=== PATIENT | female | born 1930 | race African-American/Black ===

== ENCOUNTER 2017-07-29 06:52 | Inpatient (IN) | payer MEDICARE, OTHER ==
[~2017-07-29] VITALS: Ht 165.1 cm; Wt 44.9 kg
[2017-07-29] MEDS ORDERED: Albuterol ud Inhalation HHN ONE ×2 (07:00→08:00)
[2017-07-29] MEDS ORDERED: Ipratropium 0.02% Inh Soln 2.5ml UD HHN ONE (07:00)
[2017-07-29] MEDS ORDERED: Solu-MEDROL 125mg Inj IVP ONE (07:00)
--- NOTE | 2017-07-29 07:01 | Emergency Room Report ---
History of Present Illness General Chief Complaint: Upper Respiratory Illness Source: Patient, EMS Present Illness HPI The patient presents via EMS for cough. That started at 1 AM. She hears himself wheezing. She has a history of asthma. She denies any fever or colored phlegm. She has any chest pain but feels some pressure there. She does have an inhaler with out a nebulizer. This is not her worst attack. She denies any fever nausea, vomiting, diarrhea, dysuria. Minimal exertion and no MEDLEY, dizziness, chest pain. She has weakness of her left hand that's chronic. 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 She also suffers from osteoarthritis. Allergies: Coded Allergies: CODEINE (Verified Allergy, Unknown, 07/29/17) EGG (Verified Allergy, Unknown, 07/29/17) LISINOPRIL (Verified Allergy, Unknown, 07/29/17) MILK (Verified Allergy, Unknown, 07/29/17) PENICILLINS (Verified Allergy, Unknown, 07/29/17) Patient History Past Medical History: see triage record Social History: Denies: smoking Social History Narrative assisted living - born [place] Now: No Reviewed Nursing Documentation: PMH: Agreed; PSxH: Agreed Review of Systems All Other Systems: negative except mentioned in HPI Physical Exam Vital Signs Date Time Temp Pulse Resp B/P (MAP) Pulse Ox O2 Delivery O2 Flow Rate FiO2 07/29/17 06:53 98.8 56 18 146/69 97 Room Air 98.8 Sp02 EP Interpretation: reviewed, normal General Appearance: well appearing, no apparent distress, GCS 15 Head: normocephalic, atraumatic Eyes: bilateral eye normal inspection, bilateral eye PERRL ENT: moist mucus membranes Neck: supple Respiratory: wheezing, expiration, inspiration Cardiovascular #1: normal peripheral pulses, bradycardia Cardiovascular #2: 2+ radial (R) Gastrointestinal: normal inspection, normal bowel sounds, non tender, no mass, non-distended, overweight Genitourinary: no CVA tenderness Musculoskeletal: back normal, normal range of motion, non-tender, no calf tenderness, other - Contracture left hand Neurologic: alert, oriented x3, DTRs symmetric, sensory intact, speech normal, motor weakness - Left-hand Psychiatric: mood/affect normal Skin: normal inspection, warm/dry Medical Decision Making Diagnostic Impression: Primary Impression: Dyspnea Qualified Codes: R06.00 - Dyspnea, unspecified Additional Impressions: Bradycardia UTI (urinary tract infection) Qualified Codes: N30.00 - Acute cystitis without hematuria Bronchospasm ER Course Patient presents with cough and wheezing. Differential includes pneumonia, asthma exacerbation, bronchospasm, bronchitis amongst others. She'll be evaluated with EKG, chest x-ray and labs including lactate. She is afebrile and therefore blood cultures are not ordered. She'll be treated with Solu- Medrol and breathing treatments. The patient is found to be bradycardic. She's on 2 beta blockers and calcium channel micky (according to med list). She takes both labetalol and metoprolol as well as norvasc. She'll be treated with glucagon. Also based on the EKG we need to make sure her potassium is not elevated. The albuterol will help if her potassium is elevated. EKG with a rate of 40 with a left bundle branch block no hyperacute changes. Patient was given glucagon 1 mg with minimal improvement. This was then repeated with 2 mg dose. She is tolerating the slow heart rate without distress. Labs are significant for no hyperkalemia. This makes the possibility of excess beta micky more likely. The fact she is also on a calcium channel micky, will also try calcium gluconate. If patient were not tolerating HR, would consider more aggressive treatment ( atropine). Holding due to clinical status. The patient be admitted to telemetry. The wheezing is better and the patient has no respiratory distress at this time. Dr. Molina was contacted and will admit the patient. Pacer pads placed. UA returned after patient on floor. Told floor to ask for antibiotics. Laboratory Tests Test 07/29/17 07:20 07/29/17 08:34 White Blood Count 7.0 K/UL (4.8-10.8) Red Blood Count 3.63 M/UL (4.20-5.40) L Hemoglobin 10.7 G/DL (12.0-16.0) L Hematocrit 32.4 % (37.0-47.0) L Mean Corpuscular Volume 89 FL (80-99) Mean Corpuscular Hemoglobin 29.5 PG (27.0-31.0) Mean Corpuscular Hemoglobin Concent 33.1 G/DL (32.0-36.0) Red Cell Distribution Width 13.5 % (11.6-14.8) Platelet Count 208 K/UL (150-450) Mean Platelet Volume 10.8 FL (6.5-10.1) H Neutrophils (%) (Auto) 61.3 % (45.0-75.0) Lymphocytes (%) (Auto) 23.1 % (20.0-45.0) Monocytes (%) (Auto) 8.0 % (1.0-10.0) Eosinophils (%) (Auto) 5.2 % (0.0-3.0) H Basophils (%) (Auto) 2.4 % (0.0-2.0) H Prothrombin Time 9.7 SEC (9.30-11.50) Prothrombin Time INR 1.0 (0.9-1.1) PTT 25 SEC (23-33) Sodium Level 142 MMOL/L (136-145) Potassium Level 4.5 MMOL/L (3.5-5.1) Chloride Level 107 MMOL/L (98-107) Carbon Dioxide Level 26 MMOL/L (21-32) Anion Gap 9 mmol/L (5-15) Blood Urea Nitrogen 21 mg/dL (7-18) H Creatinine 1.2 MG/DL (0.55-1.30) Estimate Glomerular Filtration Rate mL/min (>60) Glucose Level 118 MG/DL (74-106) H Lactic Acid Level 2.50 mmol/L (0.66-2.22) H 2.30 mmol/L (0.66-2.22) H Calcium Level 9.0 MG/DL (8.5-10.1) Magnesium Level 2.0 MG/DL (1.8-2.4) Total Bilirubin 0.3 MG/DL (0.2-1.0) Aspartate Amino Transferase (AST) 19 U/L (15-37) Alanine Aminotransferase (ALT) 19 U/L (12-78) Alkaline Phosphatase 72 U/L (46-116) Total Creatine Kinase 74 U/L (26-308) Troponin I 0.000 ng/mL (0.000-0.056) Pro-B-Type Natriuretic Peptide 1366 pg/mL (0-125) H Total Protein 7.3 G/DL (6.4-8.2) Albumin 3.2 G/DL (3.4-5.0) L Globulin 4.1 g/dL Albumin/Globulin Ratio 0.8 (1.0-2.7) L EKG Diagnostic Results Rate: bradycardiac Rhythm: other ST Segments: no acute changes - LBBB Rhythm Strip Diag. Results EP Interpretation: yes Rhythm: no PVC's, no ectopy, other - bradycardia Chest X-Ray Diagnostic Results Chest X-Ray Diagnostic Results : Chest X-Ray Ordered: Yes # of Views/Limited/Complete: 1 View Indication: Shortness of Breath EP Interpretation: Yes Interpretation: no consolidation, no effusion, no pneumothorax, other Impression: Other Electronically Signed by: Electronically signed by Chao Mendoza MD Last Vital Signs Date Time Temp Pulse Resp B/P (MAP) Pulse Ox O2 Delivery O2 Flow Rate FiO2 07/29/17 21:09 165/89 07/29/17 16:00 59 07/29/17 12:00 2.0 07/29/17 10:31 98.8 16 100 Room Air 98.8 Status: improved Disposition: ADMITTED INPATIENT Condition: Serious Chao Mendoza M.D. July 29, 2017 07:01
[2017-07-29] MEDS ORDERED: LABETALOL HCL100 MG ORAL (07:14)
[2017-07-29] MEDS ORDERED: LOSARTAN POTASS50 MG ORAL (07:14)
[2017-07-29] MEDS ORDERED: LD2JL30 TOPIC (07:14)
[2017-07-29] MEDS ORDERED: METOPROLOL TART50 M1 ORAL (07:14)
[2017-07-29] MEDS ORDERED: ARTIFICIAL TEAR15 ML BOTH EYES (07:14)
[2017-07-29] MEDS ORDERED: ISOSORBIDE MONO20 MG PO ×2 (07:14→07:20)
[2017-07-29] MEDS ORDERED: LOVASTATIN40 MG ORAL (07:14)
[2017-07-29] MEDS ORDERED: COLACE100 MG ORAL (07:14)
[2017-07-29] MEDS ORDERED: METFORMIN HCL1000 M1 ORAL (07:14)
[2017-07-29] MEDS ORDERED: FOLIC ACID1 MG ORAL (07:14)
[2017-07-29] MEDS ORDERED: GABAPENTIN300 MG ORAL (07:14)
[2017-07-29] MEDS ORDERED: BACLOFEN10 MG ORAL ×2 (07:14→07:20)
[2017-07-29] MEDS ORDERED: FLEET ENEMA133 ML RECTAL (07:14)
[2017-07-29] MEDS ORDERED: NORVASC5 MG ORAL (07:18)
[2017-07-29] MEDS ORDERED: NOVOLOG100 UNIT/3 SUBQ (07:18)
[2017-07-29] MEDS ORDERED: ROBAXIN500 MG PO (07:18)
[2017-07-29] MEDS ORDERED: SENNA LAXATIVE8.6 MG PO (07:18)
[2017-07-29] MEDS ORDERED: PANTOPRAZOLE SO40 MG ORAL (07:18)
[2017-07-29] MEDS ORDERED: NITROGLYCERIN2.5 M1 SL (07:18)
[2017-07-29] MEDS ORDERED: MILK OF MA400 MG/51 ORAL (07:18)
[2017-07-29] MEDS ORDERED: CARAFATE1 G1 ORAL (07:20)
[2017-07-29] MEDS ORDERED: VITAMIN D400 INTLU ORAL (07:20)
[2017-07-29] MEDS ORDERED: ACETAMINOPHEN325 M1 ORAL (07:20)
[2017-07-29 07:33] VITALS: BP 146/69
[2017-07-29] MEDS ORDERED: Glucagon 1mg Inj IV ONE ×2 (07:45→08:15)
[2017-07-29 07:48] LABS: BASOPHILS % (AUTO) 2.4 % (0.0-2.0); EOSINOPHILS % (AUTO) 5.2 % (0.0-3.0); HEMATOCRIT 32.4 % (37.0-47.0); HEMOGLOBIN 10.7 G/DL (12.0-16.0); LYMPHOCYTES % (AUTO) 23.1 % (20.0-45.0); MEAN CORPUSCULAR VOLUME 89 FL (80-99); NEUTROPHILS % (AUTO) 61.3 % (45.0-75.0); PLATELET COUNT 208 K/UL (150-450); RED BLOOD COUNT 3.63 M/UL (4.20-5.40); RED CELL DISTRIBUTION WIDTH 13.5 % (11.6-14.8)
[2017-07-29 07:58] LABS: ANION GAP 9 mmol/L (5-15); BLOOD UREA NITROGEN 21 mg/dL (7-18); CARBON DIOXIDE 26 MMOL/L (21-32); CHLORIDE 107 MMOL/L (98-107); CREATININE 1.2 MG/DL (0.55-1.30); POTASSIUM 4.5 MMOL/L (3.5-5.1); SODIUM 142 MMOL/L (136-145)
[2017-07-29] MEDS ORDERED: Glucagon 1mg Inj ONE (08:07)
[2017-07-29 08:08] LABS: ALANINE AMINOTRANSFERASE 19 U/L (12-78); ALBUMIN 3.2 G/DL (3.4-5.0); ALBUMIN/GLOBULIN RATIO 0.8 (1.0-2.7); ALKALINE PHOSPHATASE 72 U/L (46-116); ASPARTATE AMINO TRANSFERASE 19 U/L (15-37); BILIRUBIN,TOTAL 0.3 MG/DL (0.2-1.0); CREATINE KINASE 74 U/L (26-308)
[2017-07-29] MEDS ORDERED: Ketorolac 30mg Inj IV PRN (09:00)
[2017-07-29] MEDS ORDERED: Nitroglycerin Subl 0.4mg tab SL PRN (09:00)
[2017-07-29] MEDS ORDERED: LORazepam Inj 2mg/ml 1ml IV PRN (09:00)
[2017-07-29] MEDS ORDERED: Albuterol/Ipratropium 3ml neb HHN PRN (09:00)
[2017-07-29 09:30] VITALS: BP 125/41
[2017-07-29] MEDS ORDERED: Calcium Gluconate 1gm/10ml vial IVP ONE (09:45)
[2017-07-29 10:06] VITALS: BP 125/60
[2017-07-29 10:07] LABS: APPEARANCE,URINE CLOUDY; BILIRUBIN, URINE NEGATIVE (NEGATIVE); COLOR,URINE PALE YELLOW; GLUCOSE, URINE (UA) NEGATIVE (NEGATIVE); KETONES,URINE NEGATIVE (NEGATIVE); LEUKOCYTE ESTERASE ,URINE 2+ (NEGATIVE); NITRITE,URINE NEGATIVE (NEGATIVE); PH,URINE 6 (4.5-8.0); PROTEIN,URINE 4+ (NEGATIVE); UROBILINOGEN,URINE NORMAL MG/DL (0.0-1.0)
--- NOTE | 2017-07-29 10:32 | Diagnostic Imaging Report ---
Indication: Dyspnea Technique: XRAY Chest 1v Comparison: None Findings: Heart is enlarged. There is mild interstitial edema. There are patchy bibasilar airspace opacities likely related to atelectasis and vascular crowding. There is trace left pleural fluid. There is no pneumothorax. There is scoliosis and degenerative change of the spine. Degenerative change of the shoulders also noted. No acute osseous abnormality seen. Cervical fixation hardware is partially visualized. IMPRESSION: Cardiomegaly and mild interstitial edema/CHF. Patchy bibasilar opacities likely related to bronchovascular crowding/interstitial edema. Possibility of superimposed pneumonia not entirely excluded. Clinical correlation and follow-up exam recommended.
--- NOTE | 2017-07-29 12:44 | Consultation ---
History of Present Illness General Date patient seen: July 29, 2017 Chief Complaint: Upper Respiratory Illness Reason for Consultation: dypsnea Present Illness HPI 87 year old female with hx of asthma, HTN, shelter resident presented by EMS with CC of cough and wheezing. She felt some pressure over chest as well. She does have an inhaler with out a nebulizer. Her CXR in ER showed mild congestion. She was also bradycardic and is admitted to telemetry for further w/ u. Her two daughters are at bed site who are stating that she belongs to [facility] and want to transfer her there. Allergies: Coded Allergies: CODEINE (Verified Allergy, Unknown, 07/29/17) EGG (Verified Allergy, Unknown, 07/29/17) LISINOPRIL (Verified Allergy, Unknown, 07/29/17) MILK (Verified Allergy, Unknown, 07/29/17) PENICILLINS (Verified Allergy, Unknown, 07/29/17) Medication History Scheduled Amlodipine Besylate (Norvasc), 5 MG ORAL BID, (Reported) Baclofen* (Baclofen*), 5 MG ORAL THREE TIMES A DAY, (Reported) Baclofen* (Baclofen*), 5 MG ORAL THREE TIMES A DAY, (Reported) Dextran 70/Hypromellose (Artificial Tears Eye Drops*), 1 DROP BOTH EYES Q6HR, ( Reported) Docusate Sodium* (Colace*), 100 MG ORAL BID, (Reported) Folic Acid* (Folic Acid*), 1 MG ORAL DAILY, (Reported) Gabapentin* (Gabapentin*), 300 MG ORAL THREE TIMES A DAY, (Reported) Insulin Aspart* (Novolog*), 0 SUBQ BID, (Reported) Isosorbide Mononitrate (Isosorbide Mononitrate), 30 MG PO DAILY, (Reported) Labetalol Hcl* (Normodyne*), 100 MG ORAL Q6HR, (Reported) Lidocaine HCL 2% Jelly* (Lidocaine Jelly 2%*), 5 ML TOPIC BID, (Reported) Losartan Potassium* (Losartan Potassium*), 100 MG ORAL BEDTIME, (Reported) Lovastatin (Lovastatin), 40 MG ORAL BEDTIME, (Reported) Magnesium Hydroxide* (Milk Of Magnesia*), 30 ML ORAL BID, (Reported) Metformin Hcl* (Metformin Hcl*), 1,000 MG ORAL BID, (Reported) Methocarbamol* (Robaxin*), 500 MG PO QID, (Reported) Metoprolol Tartrate* (Metoprolol Tartrate*), 50 MG ORAL EVERY 12 HOURS, ( Reported) Na Phos,M-B/Na Phos,Di-Ba* (Fleet Enema*), 133 ML RECTAL DAILY, (Reported) Pantoprazole* (Pantoprazole*), 40 MG ORAL BID, (Reported) Sennosides (Senna Laxative), 8.6 MG PO BEDTIME, (Reported) Sucralfate* (Carafate*), 1 GM ORAL THREE TIMES A DAY, (Reported) Vitamin D (Vitamin D3), 2,000 UNITS ORAL DAILY, (Reported) Scheduled PRN Acetaminophen* (Acetaminophen 325MG Tablet*), 650 MG ORAL Q6H PRN for Pain Scale (3-5), (Reported) Miscellaneous Medications Isosorbide Mononitrate (Isosorbide Mononitrate), 30 MG PO, (Reported) Nitroglycerin (Nitroglycerin), 0.4 MG SL, (Reported) Patient History Healthcare decision maker Resuscitation status Full Code Advanced Directive on File No Past Medical/Surgical History Past Medical/Surgical History: (1) History of asthma (2) Dementia (3) History of hypertension Review of Systems All Other Systems: negative except mentioned in HPI Physical Exam General Appearance: WD/WN, no apparent distress Lines, tubes and drains: peripheral HEENT: normocephalic, atraumatic Neck: non-tender, normal alignment Respiratory/Chest: chest wall non-tender, lungs clear Breasts: no masses Cardiovascular/Chest: normal peripheral pulses Abdomen: normal bowel sounds, non tender Genitourinary/Rectal: normal genital exam Extremities: normal range of motion Skin Exam: normal pigmentation 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 II-XII grossly normal Last 24 Hour Vital Signs Date Time Temp Pulse Resp B/P (MAP) Pulse Ox O2 Delivery O2 Flow Rate FiO2 07/29/17 10:31 98.8 50 16 125/60 100 Room Air 98.8 07/29/17 10:06 98.8 50 16 125/60 100 Room Air 98.8 07/29/17 09:30 98.8 75 16 125/41 100 Room Air 98.8 07/29/17 08:21 41 16 100 Room Air 07/29/17 08:05 43 16 97 Room Air 07/29/17 07:35 51 17 100 Room Air 07/29/17 07:33 98.8 44 20 146/69 96 Room Air 98.8 07/29/17 07:13 40 20 96 Room Air 07/29/17 07:12 40 20 Room Air 07/29/17 07:00 56 18 Room Air 07/29/17 06:53 98.8 56 18 146/69 97 Room Air 98.8 Laboratory Tests Test 07/29/17 07:20 07/29/17 08:34 07/29/17 09:55 White Blood Count 7.0 K/UL (4.8-10.8) Red Blood Count 3.63 M/UL (4.20-5.40) L Hemoglobin 10.7 G/DL (12.0-16.0) L Hematocrit 32.4 % (37.0-47.0) L Mean Corpuscular Volume 89 FL (80-99) Mean Corpuscular Hemoglobin 29.5 PG (27.0-31.0) Mean Corpuscular Hemoglobin Concent 33.1 G/DL (32.0-36.0) Red Cell Distribution Width 13.5 % (11.6-14.8) Platelet Count 208 K/UL (150-450) Mean Platelet Volume 10.8 FL (6.5-10.1) H Neutrophils (%) (Auto) 61.3 % (45.0-75.0) Lymphocytes (%) (Auto) 23.1 % (20.0-45.0) Monocytes (%) (Auto) 8.0 % (1.0-10.0) Eosinophils (%) (Auto) 5.2 % (0.0-3.0) H Basophils (%) (Auto) 2.4 % (0.0-2.0) H Prothrombin Time 9.7 SEC (9.30-11.50) Prothromb Time International Ratio 1.0 (0.9-1.1) Activated Partial Thromboplast Time 25 SEC (23-33) Sodium Level 142 MMOL/L (136-145) Potassium Level 4.5 MMOL/L (3.5-5.1) Chloride Level 107 MMOL/L (98-107) Carbon Dioxide Level 26 MMOL/L (21-32) Anion Gap 9 mmol/L (5-15) Blood Urea Nitrogen 21 mg/dL (7-18) H Creatinine 1.2 MG/DL (0.55-1.30) Estimat Glomerular Filtration Rate mL/min (>60) Glucose Level 118 MG/DL (74-106) H Lactic Acid Level 2.50 mmol/L (0.66-2.22) H 2.30 mmol/L (0.66-2.22) H Calcium Level 9.0 MG/DL (8.5-10.1) Magnesium Level 2.0 MG/DL (1.8-2.4) Total Bilirubin 0.3 MG/DL (0.2-1.0) Aspartate Amino Transf (AST/SGOT) 19 U/L (15-37) Alanine Aminotransferase (ALT/SGPT) 19 U/L (12-78) Alkaline Phosphatase 72 U/L (46-116) Total Creatine Kinase 74 U/L (26-308) Troponin I 0.000 ng/mL (0.000-0.056) Pro-B-Type Natriuretic Peptide 1366 pg/mL (0-125) H Total Protein 7.3 G/DL (6.4-8.2) Albumin 3.2 G/DL (3.4-5.0) L Globulin 4.1 g/dL Albumin/Globulin Ratio 0.8 (1.0-2.7) L Urine Color Pale yellow Urine Appearance Cloudy Urine pH 6 (4.5-8.0) Urine Specific [place] 1.015 (1.005-1.035) Urine Protein 4+ (NEGATIVE) H Urine Glucose (UA) Negative (NEGATIVE) Urine Ketones Negative (NEGATIVE) Urine Occult Blood 3+ (NEGATIVE) H Urine Nitrite Negative (NEGATIVE) Urine Bilirubin Negative (NEGATIVE) Urine Urobilinogen Normal MG/DL (0.0-1.0) Urine Leukocyte Esterase 2+ (NEGATIVE) H Urine RBC 15-20 /HPF (0 - 2) H Urine WBC 10-15 /HPF (0 - 2) H Urine Squamous Epithelial Cells Many /LPF (NONE/OCC) H Urine Bacteria Many /HPF (NONE) H Height (Feet): 5 Height (Inches): 5.00 Weight (Pounds): 183 Medications Current Medications Medications (Trade) Dose Ordered Sig/Edgar Route PRN Reason Start Time Stop Time Status Last Admin Dose Admin Albuterol/ Ipratropium (Albuterol/ Ipratropium) 3 ml EVERY 4 HOURS PRN HHN dyspnea 07/29/17 09:00 08/03/17 08:59 Amlodipine Besylate (Norvasc) 5 mg BID ORAL 07/29/17 11:00 08/28/17 10:59 Baclofen (Lioresal) 5 mg THREE TIMES A DAY ORAL 07/29/17 13:00 08/28/17 12:59 Dextrose (Dextrose 50%) STAT PRN IV Hypoglycemia 07/29/17 09:00 08/28/17 08:59 Dextrose (Dextrose 50%) STAT PRN IV Hypoglycemia 07/29/17 10:45 08/28/17 10:44 Gabapentin (Neurontin) 300 mg THREE TIMES A DAY ORAL 07/29/17 13:00 08/28/17 12:59 Heparin Sodium (Porcine) (Heparin 5000 units/ml) 5,000 units EVERY 12 HOURS SUBQ 07/29/17 11:00 08/28/17 10:59 Ketorolac Tromethamine (Toradol 30mg) 30 mg EVERY 8 HOURS PRN IV moderate pain 4-6 07/29/17 09:00 08/03/17 08:59 Labetalol HCl (Normodyne) 100 mg Q6HR ORAL 07/29/17 12:00 08/28/17 11:59 Lorazepam (Ativan 2mg/ml 1ml) 0.5 mg Q4H PRN IV For Anxiety 07/29/17 09:00 08/05/17 08:59 Losartan Potassium (Cozaar) 100 mg BEDTIME ORAL 07/29/17 21:00 08/28/17 20:59 Methylprednisolone Sodium Succinate (Solu-MEDROL) 60 mg EVERY 6 HOURS IV 07/29/17 12:00 08/28/17 11:59 Nitroglycerin (Ntg) 0.4 mg Q5M X 3 DOSES PRN SL Prn Chest Pain 07/29/17 09:00 08/28/17 08:59 Ondansetron HCl (Zofran) 4 mg Q6H PRN IVP Nausea & Vomiting 07/29/17 09:00 08/28/17 08:59 Pantoprazole (Protonix) 40 mg BID ORAL 07/29/17 11:15 08/28/17 11:14 Sucralfate (Carafate) 1 gm THREE TIMES A DAY ORAL 07/29/17 13:00 08/28/17 12:59 Temazepam (Restoril) 15 mg HSPRN PRN ORAL Insomnia 07/29/17 09:00 08/05/17 08:59 Theophylline (Sean-Dur) 100 mg EVERY 12 HOURS ORAL 07/29/17 11:15 08/28/17 11:14 Assessment/Plan Problem List: (1) Acute asthma exacerbation ICD Codes: J45.901 - Unspecified asthma with (acute) exacerbation SNOMED: 099973321 (2) Pulmonary edema ICD Codes: J81.1 - Chronic pulmonary edema SNOMED: 04626485 (3) Bradycardia ICD Codes: R00.1 - Bradycardia, unspecified SNOMED: 40088353 (4) History of asthma ICD Codes: Z87.09 - Personal history of other diseases of the respiratory system SNOMED: 381730589 (5) History of hypertension ICD Codes: Z86.79 - Personal history of other diseases of the circulatory system SNOMED: 276633098 Assessment/Plan respiratory treatment short course of sterids diuretics Echocardiogram dc all negative inotropic agents. check BNP and cxr in am monitor BP sputum induction short course of abx Sherri Phillips MD July 29, 2017 12:43
[2017-07-29] MEDS: Theophylline ER 100mg ORAL SCH ×2 (13:55→21:09)
[2017-07-29] MEDS: Sucralfate 1gm tab ORAL SCH ×2 (13:55→17:57)
[2017-07-29] MEDS: Heparin 5000 units/ml inj SUBQ SCH ×2 (14:06→21:11)
[2017-07-29] MEDS: Solu-MEDROL 125mg Inj IV SCH ×2 (14:45→18:10)
[2017-07-29] MEDS ORDERED: Isovue-300 100ml vial INJ PRN (17:00)
[2017-07-29] MEDS ORDERED: Gastrograffin 30ml ORAL PRN (17:00)
[2017-07-29] MEDS ORDERED: NS 275ml ONE (17:01)
[2017-07-29] MEDS ORDERED: Tubing IV Secondary IV ONE (17:01)
--- NOTE | 2017-07-29 17:05 | GI Initial Consult Note ---
History of Present Illness General Date patient seen: July 29, 2017 Time patient seen: 16:57 Reason for Hospitalization: Upper Respiratory Illness Referring physician: LEELEE MARIO Reason for Consultation: dypsnea Present Illness HPI The patient presents via EMS for cough. That started at 1 AM. She hears himself wheezing. She has a history of asthma. She denies any fever or colored phlegm. She has any chest pain but feels some pressure there. She does have an inhaler with out a nebulizer. This is not her worst attack. She denies any fever nausea, vomiting, diarrhea, dysuria. She has weakness of her left hand that's chronic. 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 She also suffers from osteoarthritis. GI consulted for abdominal swelling. Pt seen, awake A&Ox3 NAD with no active s/ sx of N/V/D. Daughter at bedside. Patient presents today c/o of new onset of abdominal swelling that increased over the past few months. Abdomen soft, distended and tympanic, +bs, +flatus, +BM. Had recent endoscopy approximately 2 months ago, noted with history of hiatal hernia,GERD, Barcenas esophagus. In addition, she has a history of esophageal stricture requiring yearly balloon dilation, last noted in March 2017. Denies any constipation or diarrhea. Denies N/V/D. Unknown history of colonoscopy. Home Meds Reported Medications Isosorbide Mononitrate (ISOSORBIDE MONONITRATE) 20 Mg Tablet, 30 MG PO, TAB 07/29/17 Baclofen* (BACLOFEN*) 10 Mg Tablet, 5 MG ORAL THREE TIMES A DAY, TAB 07/29/17 Vitamin D (Vitamin D3) 400 Unit Tablet, 2000 UNITS ORAL DAILY, TAB 07/29/17 Acetaminophen* (ACETAMINOPHEN 325MG TABLET*) 325 Mg Tablet, 650 MG ORAL Q6H PRN for Pain Scale (3-5), TAB 07/29/17 Sucralfate* (CARAFATE*) 1 Gm Tablet, 1 GM ORAL THREE TIMES A DAY, TAB 07/29/17 Sennosides (SENNA LAXATIVE) 8.6 Mg Tablet, 8.6 MG PO BEDTIME, TAB 07/29/17 Methocarbamol* (ROBAXIN*) 500 Mg Tablet, 500 MG PO QID, #28 TAB 0 Refills 07/29/17 Pantoprazole* (PANTOPRAZOLE*) 40 Mg Tablet.dr, 40 MG ORAL BID, TAB 07/29/17 Insulin Aspart* (NOVOLOG*) 100 Unit/1 Ml Insuln.pen, 0 SUBQ BID, #1 EA 0 Refills 07/29/17 Amlodipine Besylate (Norvasc) 5 Mg Tablet, 5 MG ORAL BID, TAB 07/29/17 Nitroglycerin (Nitroglycerin) 2.5 Mg Capsule.er, 0.4 MG SL, CAP 07/29/17 Magnesium Hydroxide* (MILK OF MAGNESIA*) 400 Mg/5 Ml Oral.susp, 30 ML ORAL BID, ML 07/29/17 Metoprolol Tartrate* (METOPROLOL TARTRATE*) 50 Mg Tablet, 50 MG ORAL EVERY 12 HOURS, TAB 07/29/17 Metformin Hcl* (METFORMIN HCL*) 1,000 Mg Tablet, 1000 MG ORAL BID, TAB 07/29/17 Lovastatin (LOVASTATIN) 40 Mg Tablet, 40 MG ORAL BEDTIME, #30 TAB 0 Refills 07/29/17 Losartan Potassium* (LOSARTAN POTASSIUM*) 50 Mg Tablet, 100 MG ORAL BEDTIME, TAB 07/29/17 Lidocaine HCL 2% Jelly* (Lidocaine Jelly 2%*) 5 Ml Jel.pf.johnna, 5 ML TOPIC BID, ML 07/29/17 Labetalol Hcl* (NORMODYNE*) 100 Mg Tablet, 100 MG ORAL Q6HR, TAB 07/29/17 Isosorbide Mononitrate (ISOSORBIDE MONONITRATE) 20 Mg Tablet, 30 MG PO DAILY, TAB 07/29/17 Gabapentin* (GABAPENTIN*) 300 Mg Capsule, 300 MG ORAL THREE TIMES A DAY, CAP 0 Refills 07/29/17 Folic Acid* (FOLIC ACID*) 1 Mg Tablet, 1 MG ORAL DAILY, TAB 07/29/17 Na Phos,M-B/Na Phos,Di-Ba* (FLEET ENEMA*) 133 Ml Enema, 133 ML RECTAL DAILY, ML 0 Refills 07/29/17 Docusate Sodium* (COLACE*) 100 Mg Capsule, 100 MG ORAL BID, CAP 07/29/17 Baclofen* (BACLOFEN*) 10 Mg Tablet, 5 MG ORAL THREE TIMES A DAY, TAB 07/29/17 Dextran 70/Hypromellose (ARTIFICIAL TEARS EYE DROPS*) 15 Ml Drops, 1 DROP BOTH EYES Q6HR, #15 ML 0 Refills 07/29/17 Med list reviewed/reconciled: Yes Allergies: Coded Allergies: CODEINE (Verified Allergy, Unknown, 07/29/17) EGG (Verified Allergy, Unknown, 07/29/17) LISINOPRIL (Verified Allergy, Unknown, 07/29/17) MILK (Verified Allergy, Unknown, 07/29/17) PENICILLINS (Verified Allergy, Unknown, 07/29/17) Patient History History Provided By: Patient, Family Member, Medical Record PMH Narrative Past Medical History: see triage record Social History: Denies: smoking Social History Narrative assisted living - born [place] Now: No Reviewed Nursing Documentation: PMH: Agreed; PSxH: Agreed Social History: Denies: smoking, alcohol use, drug use, other Review of Systems All Other Systems: negative except mentioned in HPI Physical Exam Vital Signs Date Time Temp Pulse Resp B/P (MAP) Pulse Ox O2 Delivery O2 Flow Rate FiO2 07/29/17 06:53 98.8 56 18 146/69 97 Room Air 98.8 Sp02 EP Interpretation: reviewed, normal Labs Laboratory Tests Test 07/29/17 07:20 07/29/17 08:34 07/29/17 09:55 White Blood Count 7.0 K/UL (4.8-10.8) Red Blood Count 3.63 M/UL (4.20-5.40) L Hemoglobin 10.7 G/DL (12.0-16.0) L Hematocrit 32.4 % (37.0-47.0) L Mean Corpuscular Volume 89 FL (80-99) Mean Corpuscular Hemoglobin 29.5 PG (27.0-31.0) Mean Corpuscular Hemoglobin Concent 33.1 G/DL (32.0-36.0) Red Cell Distribution Width 13.5 % (11.6-14.8) Platelet Count 208 K/UL (150-450) Mean Platelet Volume 10.8 FL (6.5-10.1) H Neutrophils (%) (Auto) 61.3 % (45.0-75.0) Lymphocytes (%) (Auto) 23.1 % (20.0-45.0) Monocytes (%) (Auto) 8.0 % (1.0-10.0) Eosinophils (%) (Auto) 5.2 % (0.0-3.0) H Basophils (%) (Auto) 2.4 % (0.0-2.0) H Prothrombin Time 9.7 SEC (9.30-11.50) Prothromb Time International Ratio 1.0 (0.9-1.1) Activated Partial Thromboplast Time 25 SEC (23-33) Sodium Level 142 MMOL/L (136-145) Potassium Level 4.5 MMOL/L (3.5-5.1) Chloride Level 107 MMOL/L (98-107) Carbon Dioxide Level 26 MMOL/L (21-32) Anion Gap 9 mmol/L (5-15) Blood Urea Nitrogen 21 mg/dL (7-18) H Creatinine 1.2 MG/DL (0.55-1.30) Estimat Glomerular Filtration Rate mL/min (>60) Glucose Level 118 MG/DL (74-106) H Lactic Acid Level 2.50 mmol/L (0.66-2.22) H 2.30 mmol/L (0.66-2.22) H Calcium Level 9.0 MG/DL (8.5-10.1) Magnesium Level 2.0 MG/DL (1.8-2.4) Total Bilirubin 0.3 MG/DL (0.2-1.0) Aspartate Amino Transf (AST/SGOT) 19 U/L (15-37) Alanine Aminotransferase (ALT/SGPT) 19 U/L (12-78) Alkaline Phosphatase 72 U/L (46-116) Total Creatine Kinase 74 U/L (26-308) Troponin I 0.000 ng/mL (0.000-0.056) Pro-B-Type Natriuretic Peptide 1366 pg/mL (0-125) H Total Protein 7.3 G/DL (6.4-8.2) Albumin 3.2 G/DL (3.4-5.0) L Globulin 4.1 g/dL Albumin/Globulin Ratio 0.8 (1.0-2.7) L Urine Color Pale yellow Urine Appearance Cloudy Urine pH 6 (4.5-8.0) Urine Specific [place] 1.015 (1.005-1.035) Urine Protein 4+ (NEGATIVE) H Urine Glucose (UA) Negative (NEGATIVE) Urine Ketones Negative (NEGATIVE) Urine Occult Blood 3+ (NEGATIVE) H Urine Nitrite Negative (NEGATIVE) Urine Bilirubin Negative (NEGATIVE) Urine Urobilinogen Normal MG/DL (0.0-1.0) Urine Leukocyte Esterase 2+ (NEGATIVE) H Urine RBC 15-20 /HPF (0 - 2) H Urine WBC 10-15 /HPF (0 - 2) H Urine Squamous Epithelial Cells Many /LPF (NONE/OCC) H Urine Bacteria Many /HPF (NONE) H General Appearance: well appearing, no apparent distress, alert, obese Head: normocephalic EENT: PERRL/EOMI, normal ENT inspection Neck: supple Respiratory: normal breath sounds, no respiratory distress Cardiovascular: normal rate Gastrointestinal: normal inspection, non tender, soft, normal bowel sounds, non -distended Rectal: deferred Genitourinary: no CVA tenderness Musculoskeletal: normal inspection, back normal Neurologic: normal inspection, alert, oriented x3, responsive Psychiatric: normal inspection, judgement/insight normal, memory normal Skin: normal inspection, normal color, no rash, warm/dry, palpation normal, well hydrated Lymphatic: normal inspection, no adenopathy Current Medications Current Medications Medications (Trade) Dose Ordered Sig/Edgar Route PRN Reason Start Time Stop Time Status Last Admin Dose Admin Albuterol/ Ipratropium (Albuterol/ Ipratropium) 3 ml EVERY 4 HOURS PRN HHN dyspnea 07/29/17 09:00 08/03/17 08:59 Baclofen (Lioresal) 5 mg THREE TIMES A DAY ORAL 07/29/17 13:00 08/28/17 12:59 07/29/17 13:54 Dextrose (Dextrose 50%) STAT PRN IV Hypoglycemia 07/29/17 09:00 08/28/17 08:59 Dextrose (Dextrose 50%) STAT PRN IV Hypoglycemia 07/29/17 10:45 08/28/17 10:44 Furosemide (Lasix) 20 mg DAILY IV 07/30/17 09:00 08/29/17 08:59 Gabapentin (Neurontin) 300 mg THREE TIMES A DAY ORAL 07/29/17 13:00 08/28/17 12:59 07/29/17 13:55 Heparin Sodium (Porcine) (Heparin 5000 units/ml) 5,000 units EVERY 12 HOURS SUBQ 07/29/17 11:00 08/28/17 10:59 07/29/17 14:06 Ketorolac Tromethamine (Toradol 30mg) 30 mg EVERY 8 HOURS PRN IV moderate pain 4-6 07/29/17 09:00 08/03/17 08:59 Levofloxacin 100 ml @ 100 mls/hr Q24H IVPB 07/29/17 14:00 08/05/17 13:59 07/29/17 14:03 Lorazepam (Ativan 2mg/ml 1ml) 0.5 mg Q4H PRN IV For Anxiety 07/29/17 09:00 08/05/17 08:59 Losartan Potassium (Cozaar) 100 mg BEDTIME ORAL 07/29/17 21:00 08/28/17 20:59 Methylprednisolone Sodium Succinate (Solu-MEDROL) 60 mg EVERY 6 HOURS IV 07/29/17 12:00 08/28/17 11:59 07/29/17 14:45 Nitroglycerin (Ntg) 0.4 mg Q5M X 3 DOSES PRN SL Prn Chest Pain 07/29/17 09:00 08/28/17 08:59 Ondansetron HCl (Zofran) 4 mg Q6H PRN IVP Nausea & Vomiting 07/29/17 09:00 08/28/17 08:59 Pantoprazole (Protonix) 40 mg BID ORAL 07/29/17 11:15 08/28/17 11:14 07/29/17 13:54 Sucralfate (Carafate) 1 gm THREE TIMES A DAY ORAL 07/29/17 13:00 08/28/17 12:59 07/29/17 13:55 Temazepam (Restoril) 15 mg HSPRN PRN ORAL Insomnia 07/29/17 09:00 08/05/17 08:59 Theophylline (Sean-Dur) 100 mg EVERY 12 HOURS ORAL 07/29/17 11:15 08/28/17 11:14 07/29/17 13:55 GI: Plan Problems: (1) Abdominal distension (2) Anemia (3) Barcenas esophagus (4) GERD (gastroesophageal reflux disease) (5) Hiatal hernia (6) S/P dilatation of esophageal stricture Plan obtain CT AP regular diet cont ppi BID + carafate anemia work up OB stool r/o GI bleed monitor H&H, prn transfusions bowel regime ppi fu labs Discussed with Dr. Chao. Thank you for this patient referral, we will follow. The patient was seen and examined at bedside and all new and available data was reviewed in the patients chart. I agree with the above findings, impression and plan. (Patient seen earlier today. Signature stamp does not reflect patient encounter time.). - MD Radha GrullonSelene-Jose ELICEO July 29, 2017 17:05
[2017-07-29] MEDS: Docusate 100mg cap ORAL SCH (17:56)
--- NOTE | 2017-07-29 18:36 | Cardiology Report ---
APPROVED REPORT EXAM: Two-dimensional and M-mode echocardiogram with Doppler and color Doppler. INDICATION LV FUNCTION M-Mode DIMENSIONS IVSd2.2 (0.7-1.1cm)Left Atrium (MM)3.5 (1.6-4.0cm) LVDd4.7 (3.5-5.6cm)Aortic Root3.1 (2.0-3.7cm) PWd1.8 (0.7-1.1cm)Aortic Cusp Exc.1.8 (1.5-2.0cm) IVSs2.7 cm LVDs2.7 (2.5-4.0cm) PWs2.0 cm Technically difficult study due to poor parasternal acoustical windows. Normal left ventricular chamber size, systolic function and wall motion to extent visualized. Left ventricular ejection fraction estimated to be 60-65%. Mild left ventricular hypertrophy by 2-D. All other cardiac chamber sizes are within normal limits. Focal aortic valve sclerosis with adequate cusp excursion. Thickened mitral valve leaflets with normal excursion. Mitral annulus and aortic root calcification. Pulmonic valve not well visualized. Normal tricuspid valve structure. IVC at normal size with physiologic collapse. A color flow and spectral Doppler study was performed and revealed: No aortic insufficiency . Mild mitral regurgitation . Mild tricuspid regurgitation. left ventricular diastolic function can not determined due to arrhythmia. Tricuspid systolic velocities suggests peak right ventricular systolic pressure of 43 mmHg, consistent with moderate pulmonary hypertension.
--- NOTE | 2017-07-29 19:59 | Cardiology Progress Note ---
Assessment/Plan Assessment/Plan The patient is seen and examined, full consult note will be dictated. Objective Last 24 Hour Vital Signs Date Time Temp Pulse Resp B/P (MAP) Pulse Ox O2 Delivery O2 Flow Rate FiO2 07/29/17 16:00 59 07/29/17 14:19 78 07/29/17 12:00 2.0 07/29/17 10:31 98.8 50 16 125/60 100 Room Air 98.8 07/29/17 10:06 98.8 50 16 125/60 100 Room Air 98.8 07/29/17 09:30 98.8 75 16 125/41 100 Room Air 98.8 07/29/17 08:21 41 16 100 Room Air 07/29/17 08:05 43 16 97 Room Air 07/29/17 07:35 51 17 100 Room Air 07/29/17 07:33 98.8 44 20 146/69 96 Room Air 98.8 07/29/17 07:13 40 20 96 Room Air 07/29/17 07:12 40 20 Room Air 07/29/17 07:00 56 18 Room Air 07/29/17 06:53 98.8 56 18 146/69 97 Room Air 98.8 Laboratory Tests Test 07/29/17 07:20 07/29/17 08:34 07/29/17 09:55 White Blood Count 7.0 K/UL (4.8-10.8) Red Blood Count 3.63 M/UL (4.20-5.40) L Hemoglobin 10.7 G/DL (12.0-16.0) L Hematocrit 32.4 % (37.0-47.0) L Mean Corpuscular Volume 89 FL (80-99) Mean Corpuscular Hemoglobin 29.5 PG (27.0-31.0) Mean Corpuscular Hemoglobin Concent 33.1 G/DL (32.0-36.0) Red Cell Distribution Width 13.5 % (11.6-14.8) Platelet Count 208 K/UL (150-450) Mean Platelet Volume 10.8 FL (6.5-10.1) H Neutrophils (%) (Auto) 61.3 % (45.0-75.0) Lymphocytes (%) (Auto) 23.1 % (20.0-45.0) Monocytes (%) (Auto) 8.0 % (1.0-10.0) Eosinophils (%) (Auto) 5.2 % (0.0-3.0) H Basophils (%) (Auto) 2.4 % (0.0-2.0) H Prothrombin Time 9.7 SEC (9.30-11.50) Prothromb Time International Ratio 1.0 (0.9-1.1) Activated Partial Thromboplast Time 25 SEC (23-33) Sodium Level 142 MMOL/L (136-145) Potassium Level 4.5 MMOL/L (3.5-5.1) Chloride Level 107 MMOL/L (98-107) Carbon Dioxide Level 26 MMOL/L (21-32) Anion Gap 9 mmol/L (5-15) Blood Urea Nitrogen 21 mg/dL (7-18) H Creatinine 1.2 MG/DL (0.55-1.30) Estimat Glomerular Filtration Rate mL/min (>60) Glucose Level 118 MG/DL (74-106) H Lactic Acid Level 2.50 mmol/L (0.66-2.22) H 2.30 mmol/L (0.66-2.22) H Calcium Level 9.0 MG/DL (8.5-10.1) Magnesium Level 2.0 MG/DL (1.8-2.4) Total Bilirubin 0.3 MG/DL (0.2-1.0) Aspartate Amino Transf (AST/SGOT) 19 U/L (15-37) Alanine Aminotransferase (ALT/SGPT) 19 U/L (12-78) Alkaline Phosphatase 72 U/L (46-116) Total Creatine Kinase 74 U/L (26-308) Troponin I 0.000 ng/mL (0.000-0.056) Pro-B-Type Natriuretic Peptide 1366 pg/mL (0-125) H Total Protein 7.3 G/DL (6.4-8.2) Albumin 3.2 G/DL (3.4-5.0) L Globulin 4.1 g/dL Albumin/Globulin Ratio 0.8 (1.0-2.7) L Urine Color Pale yellow Urine Appearance Cloudy Urine pH 6 (4.5-8.0) Urine Specific [place] 1.015 (1.005-1.035) Urine Protein 4+ (NEGATIVE) H Urine Glucose (UA) Negative (NEGATIVE) Urine Ketones Negative (NEGATIVE) Urine Occult Blood 3+ (NEGATIVE) H Urine Nitrite Negative (NEGATIVE) Urine Bilirubin Negative (NEGATIVE) Urine Urobilinogen Normal MG/DL (0.0-1.0) Urine Leukocyte Esterase 2+ (NEGATIVE) H Urine RBC 15-20 /HPF (0 - 2) H Urine WBC 10-15 /HPF (0 - 2) H Urine Squamous Epithelial Cells Many /LPF (NONE/OCC) H Urine Bacteria Many /HPF (NONE) H Dontrell Tubbs MD July 29, 2017 19:59
[2017-07-29 20:00] VITALS: BP 152/81
--- NOTE | 2017-07-29 20:09 | Consultation ---
Consult Note Consult Note NEUROLOGY CONSULTATION: Full note dictated #[id number] 87 y/o, RH, BF with PH of HTN, DM, dementia, loss of ability to walk for 3-4 years, living in a NH for 3-4 years, a fall in the NH with multiple fractures and loss of ability to use the left hand, a stroke a few years ago with left facial twisting and problems moving her right hand. She was hospitalized on 07/29/17 for respiratory problems with shortness of breath and wheezing. This evaluation was requested to evaluate the patient for her CVD. ON EXAM: Problems with orientation, memory, VSF, HCF, language. Mild left VII central Quadriparesis - left > right UE>LE. Brisker DTRs on left Inability to stand and walk. IMPRESSION: Remote H/O stroke. REC: MRI of brain Carotid duplex. Labs for CVD BP/BS control Wilber Demarco M.D., M.S.P.WILBER JANSEN July 29, 2017 20:09
--- NOTE | 2017-07-29 20:45 | History and Physical Report ---
DATE OF ADMISSION: 07/29/2017 TIME SEEN: At 4 p.m. CONSULTANTS: 1. Sherri Phillips M.D. 2. Cam Chao M.D. 3. Dontrell Tubbs M.D. CHIEF COMPLAINT: Hypoxia, asthma exacerbation, bradycardia, and abdominal discomfort. BRIEF HISTORY: This is an 87-year-old female from [facility] who presented to [facility] last night with the above-mentioned diagnoses. She was bradycardic, hypoxic, and has noted abdominal swelling. The patient was admitted to telemetry for further care. Currently, calm in bed, slight shortness of breath, no complaint otherwise. PAST MEDICAL HISTORY: Heart disease, diabetes, GERD, and asthma. PAST SURGICAL HISTORY: Hysterectomy. MEDICATIONS: Lasix, Cozaar, levofloxacin, , Neurontin, Carafate, Solu-Medrol, Protonix, Sean-Dur, heparin, albuterol, Ativan, Zofran, and Restoril. ALLERGIES: Penicillin, codeine, and lisinopril. SOCIAL HISTORY: No smoking. No alcohol. No intravenous drug abuse. FAMILY HISTORY: Noncontributory. REVIEW OF SYSTEMS: No chest pain. Slight shortness of breath. No nausea, vomiting, or diarrhea. PHYSICAL EXAMINATION: GENERAL: Calm in bed, oriented x2, in no acute distress. VITAL SIGNS: Temperature 98, pulse 50, respirations 16, and blood pressure 125/60. CARDIOVASCULAR: No murmur. LUNGS: Distant. Poor exchange. Slight wheeze. ABDOMEN: Bowel sounds positive. Nontender. Slightly distended. Soft. No guarding. No rigidity. No rebound. EXTREMITIES: No cyanosis, clubbing, or edema. NEUROLOGIC: The patient moves all extremities, slightly weak. LABORATORY AND DIAGNOSTIC DATA: Labs at this time show CBC with hemoglobin 10.7, otherwise CBC is normal. BMP shows BUN 21 and glucose 118. Otherwise, BNP is 1366. INR is 1.0. Urinalysis shows 2+ leukocyte esterase. ASSESSMENT: Hypoxia, asthma exacerbation, anemia, UTI, bradycardia, heart disease, diabetes, abdominal discomfort, and GERD. PLAN: Continue previous medications. OT, PT, dietary evaluation. O2 and pulmonary treatment. Antibiotics per Infectious Disease. Resume home medications. Blood pressure, blood sugar, and pain control. Dietary followup. Dr. Phillips, Dr. Tubbs, Dr. Chao, and Dr. Reyes to consult. Anderson Molina D.O. DR: MOOSE JOB#: [id number] CC:
[2017-07-29] MEDS: Losartan 50mg tab ORAL SCH (21:09)
[2017-07-29] MEDS: Miralax 17gm pkt ORAL SCH (21:09)
--- NOTE | 2017-07-29 22:30 | Consultation ---
DATE OF CONSULTATION: 07/29/2017 NEUROLOGY CONSULTATION REQUESTING PHYSICIAN: Anderson Molina D.O. HISTORY: Ms. Deepika Benites is an 87-year-old, right-handed, black lady who does have a past history of hypertension, diabetes mellitus, dementia, and loss of ability to walk for the last 3 to 4 years living in a longterm for the last 3 to 4 years following loss of ability to walk, a fall in the longterm with multiple fractures and loss of ability to use her left hand a few years ago, a stroke a few years ago associated with left facial twisting and problems moving her right hand which she says was not worked up. She was hospitalized on 07/29/2017 for respiratory problems namely shortness of breath and wheezing. This evaluation was requested to evaluate the patient for cerebrovascular disease. As per the patient, she thinks she had a stroke a few years ago when the left face twisted and her right hand became weak. These problems have improved since they happened but she still has significant problems with using her right hand. She tells me that the problem was never worked up with any imaging studies and she also tells me that she has not walked for the last 3 to 4 years because of back problems. PAST MEDICAL HISTORY: Significant for high blood pressure, diabetes mellitus, dementia, loss of ability to walk for the last 3 to 4 years, fall with multiple fractures with loss of ability to use the left hand at the longterm, stroke a few years ago with left facial twisting and problems moving right hand. FAMILY HISTORY: Significant for high blood pressure and diabetes mellitus in other family members. PERSONAL HISTORY: Home: She lives in a longterm. 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 Habits: She denies use of alcohol, tobacco, or illicit drugs. PRESENT MEDICATIONS: Include Lasix, losartan, MiraLAX, Colace, levofloxacin, baclofen, gabapentin, Carafate, Solu-Medrol, Protonix, Sean-Dur, heparin for DVT prophylaxis, DuoNeb, Toradol, lorazepam, nitroglycerin, Zofran, and temazepam. PHYSICAL EXAMINATION: GENERAL: She is a well-developed and well-nourished, obese, black lady, lying in bed, in no acute distress. VITAL SIGNS: Pulse 50 per minute, blood pressure 125/60 mmHg, respirations 16 per minute, and temperature 98.8 degrees Fahrenheit. HEAD: Head normocephalic and atraumatic. NECK: No neck rigidity was observed. EENT: Examination benign. NEUROLOGIC EXAMINATION: MENTAL STATUS EXAMINATION: She was awake and alert. She was oriented to self, hospital, and July 2017. She did not know the date or the name of the hospital. She was able to recall 3/3 words immediately, but could only remember 1/3 words in 1 minute and 3 minutes. She was able to remember presidents Trump through Johnson senior with minimal hints. Her mathematical skills were impaired. Her visuospatial function was also impaired. SPEECH: She had no dysarthria. LANGUAGE: She had anomia for low and mid frequency words. CRANIAL NERVE EXAMINATION: II: The visual daniels were intact to confrontation testing. III, IV & : External ocular movements were full and the pupils 3 mm in diameter, equal, round, regular, and reactive sluggishly to light. V: She had normal facial sensations, and the temporales, masseters, and pterygoids functioned normally. VII: She had a left seventh central facial paresis. VIII: She was able to hear well bilaterally and had no nystagmus. IX: The palate moved symmetrically on phonation. X: She had no hoarseness of voice. XI: The sternocleidomastoids and trapezii functioned normally. XII: The tongue was in the midline without any fasciculations or atrophy. MOTOR SYSTEM: Tone was normal in all four extremities. Examination of muscle mass revealed significant wasting of the hand muscles on the left side more than the right with a left hand contracture. Examination of power was exceedingly difficult to perform because of varying degrees of effort. 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 SENSORY EXAMINATION: She complained of altered sensations in her left hand but normal sensations in the right hand and both feet. REFLEXES: 2+ on the right and 1+ on the left at the biceps, triceps, brachioradialis and knees. 0 at both ankles. The plantar responses were flexor bilaterally. COORDINATION, STANCE & GAIT: Could not be tested. DIAGNOSTIC IMPRESSION: 1. Ms Deepika Benites is an 87-year-old right-handed black lady, who does have a past history of hypertension, diabetes mellitus, dementia, and loss of ability to walk approximately 3 to 4 years ago following which she has been living in a longterm where she fell down and had multiple fractures with loss of ability to use the left hand and then what she believes was a stroke a few years ago with left facial twisting and problems moving a right hand. These problems have continued. 2. On neurological examination, at this time, she does demonstrate significant problems with orientation, recent and remote memory, visuospatial function, higher cognitive function, and language. 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 3. 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 RECOMMENDATIONS: 1. Agree with management thus far. 2. An MRI scan of the brain will be ordered to evaluate the patient for her the present state of intracranial pathology. 3. A carotid duplex will be ordered to evaluate the patient for cerebrovascular disease. 4. She will be worked up thoroughly for other treatable causes of cerebrovascular disease with fasting serum lipid panel, ESR, RPR, glycohemoglobin, Westergren sedimentation rate, TSH. 5. She was told to keep her blood pressure and blood sugar under good control. 6. Depending on the results of the above-mentioned tests, further recommendations will be given. Thank you for entrusting me with the care of Ms. Benites. I shall follow her with you. Valentino Demarco M.D., M.S.P.H. DR: Braeden JOB#: [id number] MTDD
[2017-07-30] VITALS: BP 148/79
[2017-07-30] MEDS: Solu-MEDROL 125mg Inj IV SCH ×4 (00:21→17:30)
[2017-07-30 04:00] VITALS: BP 142/68
[2017-07-30 08:00] VITALS: BP 143/70
[2017-07-30 08:43] LABS: HEMATOCRIT 33.1 % (37.0-47.0); HEMOGLOBIN 10.6 G/DL (12.0-16.0); MEAN CORPUSCULAR VOLUME 89 FL (80-99); PLATELET COUNT 205 K/UL (150-450); RED BLOOD COUNT 3.71 M/UL (4.20-5.40); RED CELL DISTRIBUTION WIDTH 13.8 % (11.6-14.8); WHITE BLOOD COUNT 6.8 K/UL (4.8-10.8)
--- NOTE | 2017-07-30 09:20 | Diagnostic Imaging Report ---
Indication: Cough Technique: One view of the chest Comparison: 07/29/2017 Findings: Degenerative changes of both shoulders are noted. The heart size is normal. The aorta is tortuous and ectatic. Cervical spine fusion hardware is again demonstrated. Lungs and pleural spaces are clear. Previously questioned interstitial edema is not evident currently Impression: No acute process. Incidental findings as noted
[2017-07-30 09:34] LABS: ALANINE AMINOTRANSFERASE 32 U/L (12-78); ALBUMIN 3.3 G/DL (3.4-5.0); ALBUMIN/GLOBULIN RATIO 0.8 (1.0-2.7); ALKALINE PHOSPHATASE 70 U/L (46-116); ANION GAP 9 mmol/L (5-15); ASPARTATE AMINO TRANSFERASE 33 U/L (15-37); BILIRUBIN,TOTAL 0.3 MG/DL (0.2-1.0); BLOOD UREA NITROGEN 25 mg/dL (7-18); CALCIUM 9.4 MG/DL (8.5-10.1); CARBON DIOXIDE 26 MMOL/L (21-32); CHLORIDE 104 MMOL/L (98-107); CREATININE 1.2 MG/DL (0.55-1.30); LACTATE DEHYDROGENASE 221 U/L (81-234); POTASSIUM 4.8 MMOL/L (3.5-5.1); SODIUM 139 MMOL/L (136-145)
[2017-07-30] MEDS ORDERED: Isovue-300 100ml vial INJ PRN (10:00)
[2017-07-30] MEDS ORDERED: Gastrograffin 30ml ORAL PRN (10:00)
[2017-07-30] MEDS ORDERED: Gastrograffin 30ml RECTAL PRN (10:00)
[2017-07-30 10:22] LABS: % IRON SATURATION 28 % (15-50); IRON 67 ug/dL (50-175); TOTAL IRON BINDING CAPACITY 238 ug/dL (250-450)
[2017-07-30] MEDS: Docusate 100mg cap ORAL SCH ×3 (10:47→17:29)
[2017-07-30] MEDS: Sucralfate 1gm tab ORAL SCH ×3 (10:47→17:29)
[2017-07-30] MEDS: Theophylline ER 100mg ORAL SCH ×2 (10:48→20:36)
[2017-07-30] MEDS: Heparin 5000 units/ml inj SUBQ SCH ×2 (10:50→20:39)
--- NOTE | 2017-07-30 11:08 | Pulmonology Progress Note ---
Assessment/Plan Problems: (1) Acute asthma exacerbation (2) Pulmonary edema (3) Bradycardia (4) History of asthma (5) History of hypertension Assessment/Plan keep in teli b/o bradycardia respiratory treatment iv abx titrate fio2 to sat of 92% sputum induction echo reviewed: EF 60%, moderate pulmonary hypertension dvt prophylaxis f/u cardiology recommendations. Subjective ROS Limited/Unobtainable: No Interval Events: less short of breath, heart rate goes as low as 30's Allergies: Coded Allergies: CODEINE (Verified Allergy, Unknown, 07/29/17) EGG (Verified Allergy, Unknown, 07/29/17) LISINOPRIL (Verified Allergy, Unknown, 07/29/17) MILK (Verified Allergy, Unknown, 07/29/17) PENICILLINS (Verified Allergy, Unknown, 07/29/17) Objective Last 24 Hour Vital Signs Date Time Temp Pulse Resp B/P (MAP) Pulse Ox O2 Delivery O2 Flow Rate FiO2 07/30/17 07:38 41 20 Room Air 07/30/17 04:00 97.4 69 19 142/68 96 Room Air 97.4 07/30/17 04:00 47 07/30/17 03:21 85 20 95 Room Air 21 07/30/17 03:16 84 18 96 Room Air 21 07/30/17 00:00 65 07/30/17 00:00 97.6 76 18 148/79 97 Room Air 97.6 07/29/17 21:09 165/89 07/29/17 20:00 84 07/29/17 20:00 97.7 87 20 152/81 98 Room Air 97.7 07/29/17 16:00 59 07/29/17 14:19 78 07/29/17 12:00 2.0 Intake and Output 07/29/17 07/30/17 19:00 07:00 Intake Total 370 ml Balance 370 ml Intake Oral 120 ml Other 250 ml # Voids 3 2 # Bowel Movements 1 General Appearance: WD/WN HEENT: normocephalic, atraumatic Respiratory/Chest: chest wall non-tender, lungs clear Breasts: no masses Cardiovascular: normal peripheral pulses Abdomen: normal bowel sounds, soft, non tender Extremities: no cyanosis 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 Lymphatic: no neck adenopathy Musculoskeletal: normal muscle bulk Microbiology Date/Time Source Procedure Growth Status 07/29/17 09:55 Urine,Clean Catch Urine Culture - Preliminary Gram Negative Bacillus 1 Resulted Laboratory Tests 07/30/17 07:55: White Blood Count 6.8, Red Blood Count 3.71L, Hemoglobin 10.6L, Hematocrit 33.1L , Mean Corpuscular Volume 89, Mean Corpuscular Hemoglobin 28.4, Mean Corpuscular Hemoglobin Concent 31.8L, Red Cell Distribution Width 13.8, Platelet Count 205, Mean Platelet Volume 10.8H, Neutrophils (%) (Auto) , Lymphocytes (%) (Auto) , Monocytes (%) (Auto) , Eosinophils (%) (Auto) , Basophils (%) (Auto) , Differential Total Cells Counted 100, Neutrophils % ( Manual) 80H, Lymphocytes % (Manual) 18L, Monocytes % (Manual) 2, Eosinophils % ( Manual) 0, Basophils % (Manual) 0, Band Neutrophils 0, Platelet Estimate Adequate, Platelet Morphology Normal, Hypochromasia , Anisocytosis 1+, Erythrocyte Sedimentation Rate 58H, Reticulocyte Count [Pending], Prothrombin Time 9.9, Prothromb Time International Ratio 1.0, Activated Partial Thromboplast Time 24, Sodium Level 139, Potassium Level 4.8, Chloride Level 104 , Carbon Dioxide Level 26, Anion Gap 9, Blood Urea Nitrogen 25H, Creatinine 1.2 , Estimat Glomerular Filtration Rate , Glucose Level 188H, Calcium Level 9.4, Iron Level 67, Total Iron Binding Capacity 238L, Percent Iron Saturation 28, Unsaturated Iron Binding 171, Total Bilirubin 0.3, Aspartate Amino Transf (AST/ SGOT) 33, Alanine Aminotransferase (ALT/SGPT) 32, Alkaline Phosphatase 70, Lactate Dehydrogenase 221, Pro-B-Type Natriuretic Peptide 1988H, Total Protein 7.4, Albumin 3.3L, Globulin 4.1, Albumin/Globulin Ratio 0.8L, Carcinoembryonic Antigen [Pending], Vitamin B12 Level 429, Vitamin D 25-Hydroxy [Pending], 25- Hydroxy Vitamin D2 [Pending], 25-Hydroxy Vitamin D3 [Pending], Folate [Pending] , Rapid Plasma Reagin [Pending] Current Medications Medications (Trade) Dose Ordered Sig/Edgar Route PRN Reason Start Time Stop Time Status Last Admin Dose Admin Albuterol/ Ipratropium (Albuterol/ Ipratropium) 3 ml EVERY 4 HOURS PRN HHN dyspnea 07/29/17 09:00 08/03/17 08:59 Baclofen (Lioresal) 5 mg THREE TIMES A DAY ORAL 07/29/17 13:00 08/28/17 12:59 07/30/17 10:47 Dextrose (Dextrose 50%) 25 ml STAT PRN IV Hypoglycemia 07/30/17 09:00 08/29/17 08:59 Dextrose (Dextrose 50%) 50 ml STAT PRN IV Hypoglycemia 07/30/17 09:00 08/29/17 08:59 Diatrizoate Meglum/ Diatrizoate Sod (Gastrografin) 30 ml NOW PRN ORAL Radiology Procedure 07/30/17 10:00 07/30/17 23:00 Diatrizoate Meglum/ Diatrizoate Sod (Gastrografin) 60 ml NOW PRN RECTAL Radiology Procedure 07/30/17 10:00 08/01/17 09:50 Docusate Sodium (Colace) 100 mg THREE TIMES A DAY ORAL 07/29/17 18:00 08/28/17 17:59 07/30/17 10:47 Furosemide (Lasix) 20 mg DAILY IV 07/30/17 09:00 08/29/17 08:59 07/30/17 09:00 Gabapentin (Neurontin) 300 mg THREE TIMES A DAY ORAL 07/29/17 13:00 08/28/17 12:59 07/30/17 10:47 Heparin Sodium (Porcine) (Heparin 5000 units/ml) 5,000 units EVERY 12 HOURS SUBQ 07/29/17 11:00 08/28/17 10:59 07/30/17 10:50 Insulin Aspart (NovoLOG) BEFORE MEALS AND HS SUBQ 07/30/17 11:30 08/29/17 11:29 Iopamidol (Isovue-300 100ml) 100 ml NOW PRN INJ Radiology Procedure 07/30/17 10:00 07/30/17 23:00 Ketorolac Tromethamine (Toradol 30mg) 30 mg EVERY 8 HOURS PRN IV moderate pain 4-6 07/29/17 09:00 08/03/17 08:59 Levofloxacin 100 ml @ 100 mls/hr Q24H IVPB 07/29/17 14:00 08/05/17 13:59 07/29/17 14:03 Lorazepam (Ativan 2mg/ml 1ml) 0.5 mg Q4H PRN IV For Anxiety 07/29/17 09:00 08/05/17 08:59 Losartan Potassium (Cozaar) 100 mg BEDTIME ORAL 07/29/17 21:00 08/28/17 20:59 07/29/17 21:09 Methylprednisolone Sodium Succinate (Solu-MEDROL) 60 mg EVERY 6 HOURS IV 07/29/17 12:00 08/28/17 11:59 07/30/17 05:43 Nitroglycerin (Ntg) 0.4 mg Q5M X 3 DOSES PRN SL Prn Chest Pain 07/29/17 09:00 08/28/17 08:59 Ondansetron HCl (Zofran) 4 mg Q6H PRN IVP Nausea & Vomiting 07/29/17 09:00 08/28/17 08:59 Pantoprazole (Protonix) 40 mg BID ORAL 07/29/17 11:15 08/28/17 11:14 07/30/17 09:00 Polyethylene Glycol (Miralax) 17 gm BEDTIME ORAL 07/29/17 21:00 08/28/17 20:59 07/29/17 21:09 Sucralfate (Carafate) 1 gm THREE TIMES A DAY ORAL 07/29/17 13:00 08/28/17 12:59 07/30/17 10:47 Temazepam (Restoril) 15 mg HSPRN PRN ORAL Insomnia 07/29/17 09:00 08/05/17 08:59 Theophylline (Sean-Dur) 100 mg EVERY 12 HOURS ORAL 07/29/17 11:15 08/28/17 11:14 07/30/17 10:48 Sherri Phillips MD July 30, 2017 11:08
[2017-07-30] MEDS: NovoLOG Insulin Flexpen SUBQ SCH ×3 (11:42→21:00)
[2017-07-30 12:00] VITALS: BP 151/48
--- NOTE | 2017-07-30 12:06 | Diagnostic Imaging Report ---
Clinical Indication: Abdominal distention and swelling, increasing over the last few months Technique: Patient given oral contrast. IV administration nonionic contrast. Venous phase spiral acquisition obtained through the abdomen and pelvis. Multiplanar reconstructions were generated. Total dose length product 964.99 mGycm. CTDIvol(s) 19.07 mGy. Dose reduction achieved using automated exposure control Comparison: none Findings: There is mild rectal distention with feces. There is fairly extensive colonic diverticulosis. There is sigmoid circular muscle hypertrophy. No evidence of diverticulitis. The cecum is somewhat distended with gas, but there is no evidence of downstream obstruction. The appendix is not definitely identified, but there are no findings to suggest acute appendicitis. Ingested enteric contrast transits the entirety of the small bowel and a small amount of contrast is seen within the cecum and proximal ascending colon. No small bowel distention or small bowel wall thickening. There is a small sliding-type hiatal hernia. The stomach and duodenum are otherwise unremarkable. The liver is diffusely hypoattenuating, consistent with fatty change. No focal abnormality. The gallbladder is nondistended. No definite gallstones. No biliary ductal dilatation. The pancreas is unremarkable. The spleen and adrenals are unremarkable. The kidneys demonstrate multiple well-defined masses bilaterally. One of these in the upper pole of the right kidney clearly demonstrates fluid attenuation. The remainder, however, demonstrated homogeneous attenuation which is higher than fluid attenuation. There is also a complex appearing lesion coming off of the upper pole of the right kidney which demonstrates an enhancing rim and central enhancing components. No retroperitoneal or mesenteric mass or adenopathy. No pelvic mass or adenopathy. There is a small fat-containing umbilical hernia. There are bilateral pleural effusions. There are atelectatic changes at both lung bases. The heart is mildly enlarged. No pericardial effusion. The bones demonstrate degenerative spondylosis changes. There are degenerative changes of both hips. Impression: Mild rectal distention with feces, could indicate mild rectal fecal impaction No definite acute process otherwise Mild cecal distention without evidence of downstream obstruction, probably transient Multiple well circumscribed renal masses. One of these demonstrates fluid attenuation consistent with benign simple cysts. Others demonstrate nonspecific soft tissue attenuation. Suspect that these, but largely represent proteinaceous cysts, but solid mass as etiology of any of these cannot be excluded. Consider MRI for better characterization if clinically relevant Bilateral pleural effusions. Bilateral basilar pulmonary atelectasis Mild cardiomegaly Diverticulosis. No evidence of diverticulitis Fatty liver Incidental findings as noted, including bilateral hip degenerative changes, degenerative spondylosis, small fat-containing umbilical hernia, small sliding-type hiatal hernia The CT scanner at [facility] is accredited by the [employer] and the scans are performed using protocols designed to limit radiation exposure to as low as reasonably achievable to attain images of sufficient resolution adequate for diagnostic evaluation.
--- NOTE | 2017-07-30 13:13 | GI Progress Note ---
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 Chao. Assessment/Plan CT AP reviewed, see full report. - mild rectal fecal impaction. - No definite acute process otherwise. - Diverticulosis. No evidence of diverticulitis - Fatty liver - Multiple well circumscribed renal masses. anemia work up reviewed regular diet cont ppi BID + carafate OB stool r/o GI bleed monitor H&H, prn transfusions bowel regime >> colace + miralax, fleets enema prn ppi fu labs The patient was seen and examined at bedside and all new and available data was reviewed in the patients chart. I agree with the above findings, impression and plan. (Patient seen earlier today. Signature stamp does not reflect patient encounter time.). - Trudy Chao MD Objective Last 24 Hour Vital Signs Date Time Temp Pulse Resp B/P (MAP) Pulse Ox O2 Delivery O2 Flow Rate FiO2 07/30/17 08:00 97.7 69 20 143/70 96 Room Air 2.0 21 97.7 07/30/17 08:00 55 07/30/17 07:38 41 20 Room Air 07/30/17 04:00 97.4 69 19 142/68 96 Room Air 97.4 07/30/17 04:00 47 07/30/17 03:21 85 20 95 Room Air 21 07/30/17 03:16 84 18 96 Room Air 21 07/30/17 00:00 65 07/30/17 00:00 97.6 76 18 148/79 97 Room Air 97.6 07/29/17 21:09 165/89 07/29/17 20:00 84 07/29/17 20:00 97.7 87 20 152/81 98 Room Air 97.7 07/29/17 16:00 59 07/29/17 14:19 78 Intake and Output 07/29/17 07/30/17 19:00 07:00 Intake Total 370 ml Balance 370 ml Intake Oral 120 ml Other 250 ml # Voids 3 2 # Bowel Movements 1 Laboratory Tests Test 07/30/17 07:55 White Blood Count 6.8 K/UL (4.8-10.8) Red Blood Count 3.71 M/UL (4.20-5.40) L Hemoglobin 10.6 G/DL (12.0-16.0) L Hematocrit 33.1 % (37.0-47.0) L Mean Corpuscular Volume 89 FL (80-99) Mean Corpuscular Hemoglobin 28.4 PG (27.0-31.0) Mean Corpuscular Hemoglobin Concent 31.8 G/DL (32.0-36.0) L Red Cell Distribution Width 13.8 % (11.6-14.8) Platelet Count 205 K/UL (150-450) Mean Platelet Volume 10.8 FL (6.5-10.1) H Neutrophils (%) (Auto) % (45.0-75.0) Lymphocytes (%) (Auto) % (20.0-45.0) Monocytes (%) (Auto) % (1.0-10.0) Eosinophils (%) (Auto) % (0.0-3.0) Basophils (%) (Auto) % (0.0-2.0) Differential Total Cells Counted 100 Neutrophils % (Manual) 80 % (45-75) H Lymphocytes % (Manual) 18 % (20-45) L Monocytes % (Manual) 2 % (1-10) Eosinophils % (Manual) 0 % (0-3) Basophils % (Manual) 0 % (0-2) Band Neutrophils 0 % (0-8) Platelet Estimate Adequate Platelet Morphology Normal Hypochromasia Anisocytosis 1+ Erythrocyte Sedimentation Rate 58 MM/HR (0-30) H Reticulocyte Count 0.9 % (0.0-2.0) Prothrombin Time 9.9 SEC (9.30-11.50) Prothromb Time International Ratio 1.0 (0.9-1.1) Activated Partial Thromboplast Time 24 SEC (23-33) Sodium Level 139 MMOL/L (136-145) Potassium Level 4.8 MMOL/L (3.5-5.1) Chloride Level 104 MMOL/L (98-107) Carbon Dioxide Level 26 MMOL/L (21-32) Anion Gap 9 mmol/L (5-15) Blood Urea Nitrogen 25 mg/dL (7-18) H Creatinine 1.2 MG/DL (0.55-1.30) Estimat Glomerular Filtration Rate mL/min (>60) Glucose Level 188 MG/DL (74-106) H Calcium Level 9.4 MG/DL (8.5-10.1) Iron Level 67 ug/dL (50-175) Total Iron Binding Capacity 238 ug/dL (250-450) L Percent Iron Saturation 28 % (15-50) Unsaturated Iron Binding 171 ug/dL (112-346) Total Bilirubin 0.3 MG/DL (0.2-1.0) Aspartate Amino Transf (AST/SGOT) 33 U/L (15-37) Alanine Aminotransferase (ALT/SGPT) 32 U/L (12-78) Alkaline Phosphatase 70 U/L (46-116) Lactate Dehydrogenase 221 U/L (81-234) Pro-B-Type Natriuretic Peptide 1988 pg/mL (0-125) H Total Protein 7.4 G/DL (6.4-8.2) Albumin 3.3 G/DL (3.4-5.0) L Globulin 4.1 g/dL Albumin/Globulin Ratio 0.8 (1.0-2.7) L Carcinoembryonic Antigen Pending Vitamin B12 Level 429 PG/ML (193-986) Vitamin D 25-Hydroxy Pending 25-Hydroxy Vitamin D2 Pending 25-Hydroxy Vitamin D3 Pending Folate 63.6 NG/ML (8.6-58.9) H Rapid Plasma Reagin Pending Height (Feet): 5 Height (Inches): 5.00 Weight (Pounds): 185 General Appearance: WD/WN, no apparent distress, alert, morbidly obese Cardiovascular: normal rate Respiratory/Chest: normal breath sounds, no respiratory distress Abdominal Exam: normal bowel sounds, non tender, soft Extremities: normal range of motion, non-tender Kevin Garcia NP July 30, 2017 13:13 Cam Chao MD July 31, 2017 11:17
[2017-07-30] MEDS ORDERED: Fleet's Mineral Oil Enema RECTAL PRN (13:15)
--- NOTE | 2017-07-30 14:12 | Consultation ---
Consult Note Consult Note ID DIC# [id number] Shaggy Reyes MD July 30, 2017 14:12
--- NOTE | 2017-07-30 14:31 | Cardiology Report ---
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
--- NOTE | 2017-07-30 14:39 | Cardiology Report ---
APPROVED REPORT EKG Measurement Heart [id number] [place] [id number] Marked sinus bradycardia Left bundle branch block Abnormal ECG abnormal QTU interval;
--- NOTE | 2017-07-30 14:58 | Neurology Progress Note ---
Interim History Interim History Interim History Ms. Benites feels relatively well. Her MRI was not done as her daughter refused. She continues to have cognitive dysfunction. She continues to be generally weak. She denies any new neurologic symptoms. Review of Systems Neuro Review of Systems Benign. Objective Physical Exam Last Vital Signs Date Time Temp Pulse Resp B/P (MAP) Pulse Ox O2 Delivery O2 Flow Rate FiO2 07/30/17 12:00 97.7 55 20 151/48 96 Room Air 2.0 21 97.7 Laboratory Tests Test 07/30/17 07:55 White Blood Count 6.8 K/UL (4.8-10.8) Red Blood Count 3.71 M/UL (4.20-5.40) L Hemoglobin 10.6 G/DL (12.0-16.0) L Hematocrit 33.1 % (37.0-47.0) L Mean Corpuscular Volume 89 FL (80-99) Mean Corpuscular Hemoglobin 28.4 PG (27.0-31.0) Mean Corpuscular Hemoglobin Concent 31.8 G/DL (32.0-36.0) L Red Cell Distribution Width 13.8 % (11.6-14.8) Platelet Count 205 K/UL (150-450) Mean Platelet Volume 10.8 FL (6.5-10.1) H Neutrophils (%) (Auto) % (45.0-75.0) Lymphocytes (%) (Auto) % (20.0-45.0) Monocytes (%) (Auto) % (1.0-10.0) Eosinophils (%) (Auto) % (0.0-3.0) Basophils (%) (Auto) % (0.0-2.0) Differential Total Cells Counted 100 Neutrophils % (Manual) 80 % (45-75) H Lymphocytes % (Manual) 18 % (20-45) L Monocytes % (Manual) 2 % (1-10) Eosinophils % (Manual) 0 % (0-3) Basophils % (Manual) 0 % (0-2) Band Neutrophils 0 % (0-8) Other Cell Type Pathologist comment Platelet Estimate Adequate Platelet Morphology Normal Hypochromasia Anisocytosis 1+ Erythrocyte Sedimentation Rate 58 MM/HR (0-30) H Reticulocyte Count 0.9 % (0.0-2.0) Prothrombin Time 9.9 SEC (9.30-11.50) Prothromb Time International Ratio 1.0 (0.9-1.1) Activated Partial Thromboplast Time 24 SEC (23-33) Sodium Level 139 MMOL/L (136-145) Potassium Level 4.8 MMOL/L (3.5-5.1) Chloride Level 104 MMOL/L (98-107) Carbon Dioxide Level 26 MMOL/L (21-32) Anion Gap 9 mmol/L (5-15) Blood Urea Nitrogen 25 mg/dL (7-18) H Creatinine 1.2 MG/DL (0.55-1.30) Estimat Glomerular Filtration Rate mL/min (>60) Glucose Level 188 MG/DL (74-106) H Calcium Level 9.4 MG/DL (8.5-10.1) Iron Level 67 ug/dL (50-175) Total Iron Binding Capacity 238 ug/dL (250-450) L Percent Iron Saturation 28 % (15-50) Unsaturated Iron Binding 171 ug/dL (112-346) Total Bilirubin 0.3 MG/DL (0.2-1.0) Aspartate Amino Transf (AST/SGOT) 33 U/L (15-37) Alanine Aminotransferase (ALT/SGPT) 32 U/L (12-78) Alkaline Phosphatase 70 U/L (46-116) Lactate Dehydrogenase 221 U/L (81-234) Pro-B-Type Natriuretic Peptide 1988 pg/mL (0-125) H Total Protein 7.4 G/DL (6.4-8.2) Albumin 3.3 G/DL (3.4-5.0) L Globulin 4.1 g/dL Albumin/Globulin Ratio 0.8 (1.0-2.7) L Carcinoembryonic Antigen Pending Vitamin B12 Level 429 PG/ML (193-986) Vitamin D 25-Hydroxy Pending 25-Hydroxy Vitamin D2 Pending 25-Hydroxy Vitamin D3 Pending Folate 63.6 NG/ML (8.6-58.9) H Rapid Plasma Reagin Pending Neurologic Exam Objective PHYSICAL EXAMINATION: GENERAL: She is a well-developed and well-nourished, obese, black lady, lying in bed, in no acute distress. HEAD: Head normocephalic and atraumatic. NECK: No neck rigidity was observed. EENT: Examination benign. NEUROLOGIC EXAMINATION: MENTAL STATUS EXAMINATION: She was awake and alert. She was oriented to self, hospital, and July 2017. She did not know the date or the name of the hospital. She was able to recall 3/3 words immediately, but could only remember 1/3 words in 1 minute and 3 minutes. She was able to remember presidents Trump through Johnson senior with minimal hints. Her mathematical skills were impaired. Her visuospatial function was also impaired. SPEECH: She had no dysarthria. LANGUAGE: She had anomia for low and mid frequency words. CRANIAL NERVE EXAMINATION: II: The visual daniels were intact to confrontation testing. III, IV & : External ocular movements were full and the pupils 3 mm in diameter, equal, round, regular, and reactive sluggishly to light. V: She had normal facial sensations, and the temporales, masseters, and pterygoids functioned normally. VII: She had a left seventh central facial paresis. VIII: She was able to hear well bilaterally and had no nystagmus. IX: The palate moved symmetrically on phonation. X: She had no hoarseness of voice. XI: The sternocleidomastoids and trapezii functioned normally. XII: The tongue was in the midline without any fasciculations or atrophy. MOTOR SYSTEM: Tone was normal in all four extremities. Examination of muscle mass revealed significant wasting of the hand muscles on the left side more than the right with a left hand contracture. Examination of power was exceedingly difficult to perform because of varying degrees of effort. 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 SENSORY EXAMINATION: She complained of altered sensations in her left hand but normal sensations in the right hand and both feet. REFLEXES: 2+ on the right and 1+ on the left at the biceps, triceps, brachioradialis and knees. 0 at both ankles. The plantar responses were flexor bilaterally. COORDINATION, STANCE & GAIT: Could not be tested. Impression/Recommendations Diagnostic Impression 1. Ms Deepika Benites is an 87-year-old right-handed black lady, who does have a past history of hypertension, diabetes mellitus, dementia, and loss of ability to walk approximately 3 to 4 years ago following which she has been living in a assisted where she fell down and had multiple fractures with loss of ability to use the left hand and then what she believes was a stroke a few years ago with left facial twisting and problems moving a right hand. These problems have continued. 2. She feels relatively well. Her MRI was not done as her daughter refused. She continues to have cognitive dysfunction. She continues to be generally weak. She denies any new neurologic symptoms. 3. On neurological examination, at this time, she does demonstrate significant problems with orientation, recent and remote memory, visuospatial function, higher cognitive function, and language. 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 4. Her Carotid duplex was benign for significant stenosis. 5. Her daughter refused brain imaging and thus it is unclear as to whether she has had a stroke or not. 6. 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 Recommendations 1. Continue management thus far. 2. An MRI scan of the brain should be done to evaluate the patient for her the present state of intracranial pathology. 3. She was told to keep her blood pressure and blood sugar under good control. Wilber Sánchez M.D., M.S.P.Sathya. WILBER SÁNCHEZ July 30, 2017 14:58
--- NOTE | 2017-07-30 15:07 | General Progress Note ---
Assessment/Plan Problem List: (1) Hypoxia ICD Codes: R09.02 - Hypoxemia SNOMED: 191164272 (2) Diabetes ICD Codes: E11.9 - Type 2 diabetes mellitus without complications SNOMED: 50755219 (3) Bradycardia ICD Codes: R00.1 - Bradycardia, unspecified SNOMED: 89474672 (4) Bronchospasm ICD Codes: J98.01 - Acute bronchospasm SNOMED: 0224429 (5) GERD (gastroesophageal reflux disease) ICD Codes: K21.9 - Gastro-esophageal reflux disease without esophagitis SNOMED: 527702122 Status: unchanged Assessment/Plan o2 pulm tx abx ot pt diet cbc bmp am Subjective Constitutional: Reports: weakness Allergies: Coded Allergies: CODEINE (Verified Allergy, Unknown, 07/29/17) EGG (Verified Allergy, Unknown, 07/29/17) LISINOPRIL (Verified Allergy, Unknown, 07/29/17) MILK (Verified Allergy, Unknown, 07/29/17) PENICILLINS (Verified Allergy, Unknown, 07/29/17) All Systems: reviewed and negative except above Subjective sleepy calm in bed Objective Last 24 Hour Vital Signs Date Time Temp Pulse Resp B/P (MAP) Pulse Ox O2 Delivery O2 Flow Rate FiO2 07/30/17 12:00 38 07/30/17 12:00 97.7 55 20 151/48 96 Room Air 2.0 21 97.7 07/30/17 08:00 97.7 69 20 143/70 96 Room Air 2.0 21 97.7 07/30/17 08:00 55 07/30/17 07:38 41 20 Room Air 07/30/17 04:00 97.4 69 19 142/68 96 Room Air 97.4 07/30/17 04:00 47 07/30/17 03:21 85 20 95 Room Air 21 07/30/17 03:16 84 18 96 Room Air 21 07/30/17 00:00 65 07/30/17 00:00 97.6 76 18 148/79 97 Room Air 97.6 07/29/17 21:09 165/89 07/29/17 20:00 84 07/29/17 20:00 97.7 87 20 152/81 98 Room Air 97.7 07/29/17 16:00 59 Intake and Output 07/29/17 07/30/17 19:00 07:00 Intake Total 370 ml Balance 370 ml Intake Oral 120 ml Other 250 ml # Voids 3 2 # Bowel Movements 1 Laboratory Tests 07/30/17 07:55: White Blood Count 6.8, Red Blood Count 3.71L, Hemoglobin 10.6L, Hematocrit 33.1L , Mean Corpuscular Volume 89, Mean Corpuscular Hemoglobin 28.4, Mean Corpuscular Hemoglobin Concent 31.8L, Red Cell Distribution Width 13.8, Platelet Count 205, Mean Platelet Volume 10.8H, Neutrophils (%) (Auto) , Lymphocytes (%) (Auto) , Monocytes (%) (Auto) , Eosinophils (%) (Auto) , Basophils (%) (Auto) , Differential Total Cells Counted 100, Neutrophils % ( Manual) 80H, Lymphocytes % (Manual) 18L, Monocytes % (Manual) 2, Eosinophils % ( Manual) 0, Basophils % (Manual) 0, Band Neutrophils 0, Other Cell Type Pathologist comment, Platelet Estimate Adequate, Platelet Morphology Normal, Hypochromasia , Anisocytosis 1+, Erythrocyte Sedimentation Rate 58H, Reticulocyte Count 0.9, Prothrombin Time 9.9, Prothromb Time International Ratio 1.0, Activated Partial Thromboplast Time 24, Sodium Level 139, Potassium Level 4.8, Chloride Level 104, Carbon Dioxide Level 26, Anion Gap 9, Blood Urea Nitrogen 25H, Creatinine 1.2, Estimat Glomerular Filtration Rate , Glucose Level 188H, Calcium Level 9.4, Iron Level 67, Total Iron Binding Capacity 238L, Percent Iron Saturation 28, Unsaturated Iron Binding 171, Total Bilirubin 0.3, Aspartate Amino Transf (AST/SGOT) 33, Alanine Aminotransferase (ALT/SGPT) 32, Alkaline Phosphatase 70, Lactate Dehydrogenase 221, Pro-B-Type Natriuretic Peptide 1988H, Total Protein 7.4, Albumin 3.3L, Globulin 4.1, Albumin/Globulin Ratio 0.8L, Carcinoembryonic Antigen [Pending], Vitamin B12 Level 429, Vitamin D 25-Hydroxy [Pending], 25-Hydroxy Vitamin D2 [Pending], 25-Hydroxy Vitamin D3 [ Pending], Folate 63.6H, Rapid Plasma Reagin [Pending] Height (Feet): 5 Height (Inches): 5.00 Weight (Pounds): 185 General Appearance: lethargic EENT: normal ENT inspection Neck: normal alignment Cardiovascular: normal peripheral pulses, normal rate, regular rhythm Respiratory/Chest: chest wall non-tender, decreased breath sounds Abdomen: normal bowel sounds, non tender, soft Extremities: normal inspection Edema: no edema noted Arm (L), no edema noted Arm (R), no edema noted Leg (L), no edema noted Leg (R), no edema noted Pedal (L), no edema noted Pedal (R), no edema noted Generalized Neurologic: motor weakness Skin: normal pigmentation, warm/dry Anderson Molina DO July 30, 2017 15:07
[2017-07-30 16:00] VITALS: BP 123/65
[2017-07-30 20:00] VITALS: BP 172/88
[2017-07-30] MEDS: Miralax 17gm pkt ORAL SCH (20:36)
[2017-07-30] MEDS: Losartan 50mg tab ORAL SCH (20:36)
--- NOTE | 2017-07-30 22:00 | Consultation ---
DATE OF CONSULTATION: 07/30/2017 INFECTIOUS DISEASE CONSULTATION CONSULTING PHYSICIAN: Shaggy Reyes M.D. REFERRING PHYSICIAN: Anderson Molina D.O. REASON FOR CONSULTATION: Evaluation of the patient for COPD/bronchitis, possible UTI, and antibiotic management. HISTORY OF PRESENT ILLNESS: The patient is an 87-year-old female with multiple medical problems, who was brought to the hospital for a sudden onset of shortness of breath and the patient has a choking feeling. Now, the patient overall has felt better. UA showed some pyuria. Infectious Disease consultation has been requested for further evaluation of the patient and antibiotic management. PAST MEDICAL HISTORY: 1. Osteoarthritis. 2. Hyperlipidemia. 3. GERD/Barcenas esophagitis. 4. History of asthma. ALLERGIES: Penicillin, lisinopril, and codeine. FAMILY HISTORY: Not contributing. REVIEW OF SYSTEMS: HEENT: No recent change in vision or hearing. PULMONARY: As mentioned above. CARDIOVASCULAR: No history of palpitations. GASTROINTESTINAL/ABDOMEN: No nausea or vomiting. GENITOURINARY: No dysuria. MUSCULOSKELETAL: No pain in extremity. PHYSICAL EXAMINATION: VITAL SIGNS: Temperature 97.7, blood pressure 143/ , pulse 55, and respiratory rate 18. HEENT: No pale conjunctivae. No icterus. NECK: No lymphadenopathy. CHEST: Mild wheezes at bases of both lungs. HEART: S1 and S2. ABDOMEN: Obese and nontender. EXTREMITIES: No cyanosis at this time. NEUROLOGIC: Awake. LABORATORY AND DIAGNOSTIC DATA: White blood cells 6.8, hemoglobin 10, and platelets 205,000. UA, 10 to 15 white blood cells and 10 to 20 red blood cells. BUN 25 and creatinine 1.2. ALT, AST, and alkaline phosphatase are unremarkable. Urine culture is growing more than 100,000 colonies of gram-negative rods. Chest x-ray, [facility]. CT of abdomen and pelvis showed multiple renal masses, bilateral pleural effusions, and diverticulosis. ASSESSMENT: The patient is an 87-year-old female with, 1. Chronic obstructive pulmonary disease exacerbation. 2. Positive urine culture suggestive of asymptomatic bacteriuria. 3. Normal white blood cells. 4. Afebrile. PLAN: 1. We will continue the patient on Levaquin day #2/5. 2. Monitor CBC. 3. Monitor BMP. 4. Monitor cultures. 5. Based on the patient's clinical course and labs, we will do further recommendations. Thank you, Dr. Anderson Molina, for allowing me to participate in the care of this patient. I will follow the patient with you during this hospitalization. Shaggy Reyes M.D. DR: COREY JOB#: [id number] CC:
--- NOTE | 2017-07-30 23:36 | Cardiology Progress Note ---
Assessment/Plan Assessment/Plan 1. 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 Bradyarrhythmias, off metoprolol and labetolol. 3. Barcenas's esophagus Subjective Subjective Sinus rhythm at 82. No evidence of AV shireen block. Objective Last 24 Hour Vital Signs Date Time Temp Pulse Resp B/P (MAP) Pulse Ox O2 Delivery O2 Flow Rate FiO2 07/30/17 20:49 42 20 Room Air 07/30/17 20:36 172/88 07/30/17 20:00 98.5 86 18 172/88 99 Room Air 98.5 07/30/17 20:00 83 07/30/17 16:00 97.5 78 20 123/65 96 Room Air 2.0 21 97.5 07/30/17 16:00 74 07/30/17 12:00 38 07/30/17 12:00 97.7 55 20 151/48 96 Room Air 2.0 21 97.7 07/30/17 08:00 97.7 69 20 143/70 96 Room Air 2.0 21 97.7 07/30/17 08:00 55 07/30/17 07:38 41 20 Room Air 07/30/17 04:00 97.4 69 19 142/68 96 Room Air 97.4 07/30/17 04:00 47 07/30/17 03:21 85 20 95 Room Air 21 07/30/17 03:16 84 18 96 Room Air 21 07/30/17 00:00 65 07/30/17 00:00 97.6 76 18 148/79 97 Room Air 97.6 Intake and Output 07/29/17 07/30/17 19:00 07:00 Intake Total 370 ml Balance 370 ml Intake Oral 120 ml Other 250 ml # Voids 3 2 # Bowel Movements 1 2D Echo: EF 65%, Mild LVH, Mild MR, RVSP 43 mmHg,Normal intrcardiac filling pressure Laboratory Tests Test 07/30/17 07:55 07/30/17 15:30 White Blood Count 6.8 K/UL (4.8-10.8) Red Blood Count 3.71 M/UL (4.20-5.40) L Hemoglobin 10.6 G/DL (12.0-16.0) L Hematocrit 33.1 % (37.0-47.0) L Mean Corpuscular Volume 89 FL (80-99) Mean Corpuscular Hemoglobin 28.4 PG (27.0-31.0) Mean Corpuscular Hemoglobin Concent 31.8 G/DL (32.0-36.0) L Red Cell Distribution Width 13.8 % (11.6-14.8) Platelet Count 205 K/UL (150-450) Mean Platelet Volume 10.8 FL (6.5-10.1) H Neutrophils (%) (Auto) % (45.0-75.0) Lymphocytes (%) (Auto) % (20.0-45.0) Monocytes (%) (Auto) % (1.0-10.0) Eosinophils (%) (Auto) % (0.0-3.0) Basophils (%) (Auto) % (0.0-2.0) Differential Total Cells Counted 100 Neutrophils % (Manual) 80 % (45-75) H Lymphocytes % (Manual) 18 % (20-45) L Monocytes % (Manual) 2 % (1-10) Eosinophils % (Manual) 0 % (0-3) Basophils % (Manual) 0 % (0-2) Band Neutrophils 0 % (0-8) Other Cell Type Pathologist comment Platelet Estimate Adequate Platelet Morphology Normal Hypochromasia Anisocytosis 1+ Erythrocyte Sedimentation Rate 58 MM/HR (0-30) H Reticulocyte Count 0.9 % (0.0-2.0) Prothrombin Time 9.9 SEC (9.30-11.50) Prothromb Time International Ratio 1.0 (0.9-1.1) Activated Partial Thromboplast Time 24 SEC (23-33) Sodium Level 139 MMOL/L (136-145) Potassium Level 4.8 MMOL/L (3.5-5.1) Chloride Level 104 MMOL/L (98-107) Carbon Dioxide Level 26 MMOL/L (21-32) Anion Gap 9 mmol/L (5-15) Blood Urea Nitrogen 25 mg/dL (7-18) H Creatinine 1.2 MG/DL (0.55-1.30) Estimat Glomerular Filtration Rate mL/min (>60) Glucose Level 188 MG/DL (74-106) H Calcium Level 9.4 MG/DL (8.5-10.1) Iron Level 67 ug/dL (50-175) Total Iron Binding Capacity 238 ug/dL (250-450) L Percent Iron Saturation 28 % (15-50) Unsaturated Iron Binding 171 ug/dL (112-346) Total Bilirubin 0.3 MG/DL (0.2-1.0) Aspartate Amino Transf (AST/SGOT) 33 U/L (15-37) Alanine Aminotransferase (ALT/SGPT) 32 U/L (12-78) Alkaline Phosphatase 70 U/L (46-116) Lactate Dehydrogenase 221 U/L (81-234) Pro-B-Type Natriuretic Peptide 1988 pg/mL (0-125) H Total Protein 7.4 G/DL (6.4-8.2) Albumin 3.3 G/DL (3.4-5.0) L Globulin 4.1 g/dL Albumin/Globulin Ratio 0.8 (1.0-2.7) L Carcinoembryonic Antigen Pending Vitamin B12 Level 429 PG/ML (193-986) Vitamin D 25-Hydroxy Pending 25-Hydroxy Vitamin D2 Pending 25-Hydroxy Vitamin D3 Pending Folate 63.6 NG/ML (8.6-58.9) H Rapid Plasma Reagin Pending Stool Occult Blood Pending Microbiology Date/Time Source Procedure Growth Status 07/29/17 09:55 Urine,Clean Catch Urine Culture - Preliminary Gram Negative Bacillus 1 Resulted Objective HEENT: Normocepahic, anicteric, PERRLA, EOMI. NECK: No JVD, no carotid bruit, carotid upstroke 2+ B/L CHEST: Mild wheezes at bases of both lungs. HEART: Normal S1 and S2, RRR, no murmurs, gallops or rubs. ABDOMEN: Obese and nontender, non-distended, + BS. EXTREMITIES: No edema, clubbing or cyanosis. Dontrell Tubbs MD July 30, 2017 23:36
[2017-07-31] MEDS: Solu-MEDROL 125mg Inj IV SCH ×5 (00:25→23:21)
--- NOTE | 2017-07-31 01:45 | Consultation ---
DATE OF CONSULTATION: 07/29/2017 CARDIOLOGY CONSULTATION CONSULTING PHYSICIAN: Dontrell Tubbs M.D. REFERRING PHYSICIAN: Anderson Molina D.O. REASON FOR CONSULTATION: Management of atrioventricular block. HISTORY OF PRESENT ILLNESS: The patient is a very unfortunate 87-year-old female, who presents to the hospital via EMS for cough, wheezing and pressure-like chest pain. 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 On arrival to the hospital, the patient had a blood pressure 146/69. A 12-lead electrocardiogram in the emergency department was significant for atrioventricular block type 2 with associated moderate sinus bradycardia and left bundle-branch morphology. The patient was therefore admitted to telemetry for further evaluation and management of her condition. Cardiology consultation was made at request of Dr. Molina. PAST MEDICAL HISTORY: History of asthma, hypertension, diabetes mellitus, dementia, history of fall with multiple fractures, and history of stroke 3 years ago. PAST SURGICAL HISTORY: None. MEDICATIONS: List of medications in nursing facility including acetaminophen 650 mg q.6 h. p.r.n. pain, Norvasc 5 mg p.o. twice daily, baclofen 5 mg three times a day, Artificial Tears, Colace 100 mg twice daily, folic acid 1 mg p.o. daily, gabapentin 300 mg p.o. three times a day, NovoLog insulin sliding scale, isosorbide mononitrate 30 mg p.o. daily, labetalol 200 mg p.o. q.6 h., lidocaine 5 mg topically b.i.d., losartan 100 mg at bedtime, lovastatin 40 mg p.o. at bedtime, milk of magnesia 30 mL p.o. twice daily, metformin 1000 mg p.o. twice daily, methocarbamol 500 mg q.i.d., metoprolol 50 mg p.o. twice daily, Fleet Enema 133 mL rectal p.r.n., nitroglycerin 0.4 mg sublingual, pantoprazole 40 mg p.o. twice daily, senna laxative 8.6 mg p.o. at bedtime, sucralfate 1 gram three times a day, and vitamin D3 2000 units daily. ALLERGIES: Codeine, Egg, lisinopril, milk and penicillin. FAMILY HISTORY: Hypertension and diabetes mellitus, but no premature coronary artery disease. SOCIAL HISTORY: Lives at nursing facility. 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 Denies any alcohol, tobacco or illicit drug use. REVIEW OF SYSTEMS: HEENT: Denies any headache, diplopia, or blurred vision. CONSTITUTIONAL: Denies any fever, chills, night sweats, or weight loss. CARDIOVASCULAR: Some chest tightness. Denies any PND, orthopnea, leg swelling or syncope or palpitation. The patient admits to the fact that her heart rate has slowed down. PULMONARY: Some wheezing, shortness of breath, and chest congestion. GASTROINTESTINAL: Denies any nausea, vomiting, diarrhea, constipation, abdominal pain, or GI bleed. GENITOURINARY: Denies any hematuria, dysuria, or incontinence NEUROLOGY: Denies any motor dysfunction, sensory deficit, or altered speech. PHYSICAL EXAMINATION: GENERAL: The patient is a very pleasant 87-year-old lady, in no apparent respiratory distress. Awake and alert. GCS of 15. VITAL SIGNS: At the time of arrival to the hospital, blood pressure is 146/69, respirations 18, pulse of 56, temperature 98.8 degrees Fahrenheit, and O2 saturation 97% on room air. HEENT: Atraumatic and normocephalic. Anicteric. Pupils are equal, round, and reactive to light and accommodation. Extraocular muscles intact. NECK: JVP less than 5 cm. No carotid bruit. Carotid upstrokes 2+ bilaterally. CARDIOVASCULAR: Normal S1 and S2. Bradycardic. No murmurs, gallops, or rubs. PMI is at fourth intercostal space at the midclavicular line. LUNGS: Clear to auscultation bilaterally. ABDOMEN: Soft, nontender, and nondistended. No hepatosplenomegaly. Positive bowel sounds. EXTREMITIES: No evidence of edema, clubbing, or cyanosis. Diminished motor weakness of the left hand. LABORATORY AND DIAGNOSTIC DATA: Imaging studies, chest x-ray showed cardiomegaly with mild interstitial edema, questionable consistent with congestive heart failure. Patchy basilar opacities likely related to bronchovascular crowding and interstitial edema. A 2D echocardiography showed normal LV systolic function with LVEF of about 60-65%, mild LVH, mild mitral regurgitation, mild tricuspid regurgitation with right ventricular systolic pressure measured at 43 mmHg consistent with [id number] pulmonary hypertension. Laboratory findings, WBC 7.0, hemoglobin of 10.7, hematocrit 32.4 and platelet count is 208. Sodium 142, potassium is 4.5, chloride 107, bicarbonate 26, BUN of 21, creatinine 1.2 and glucose is 118. Calcium is 9.0. Magnesium is 2.0. Troponin I was 0.0. ProBNP was 1366. INR of 1.03. ASSESSMENT AND PLAN: The patient is a very unfortunate 87-year-old female, seen in Cardiology consultation at the request of Dr. Molina. 1. Review of the rhythm strips and 12-lead electrocardiogram shows clearly type 2 second-degree atrioventricular block, this is most likely due to combination of metoprolol and labetalol, two strong beta blockers . We would discontinue both agents. I will continue to monitor her rhythm. If bradyarrhythmia persists, we will consider electrophysiology study perhaps placement of a pacemaker. Further therapeutic and diagnostic decision will be based on the patient's response to discontinuation of the above beta-blockers. Of note, 2D echocardiography shows normal cardiac structure with LVEF of about 60-65%. 2. History of old CVA. I would consider continuation of aspirin 81 mg daily. 3. History of asthma. 4. Possible hypertensive heart disease with normal intracardiac filling pressure. We would like to stop the furosemide. I would like to thank, Dr. Molina, for allowing me to participate in care of this patient. Dontrell Tubbs M.D. DR: CAMDEN JOB#: [id number] CC:
[2017-07-31] MEDS: NovoLOG Insulin Flexpen SUBQ SCH ×4 (06:15→21:00)
[2017-07-31 08:00] VITALS: BP 139/56
[2017-07-31] MEDS: Docusate 100mg cap ORAL SCH ×3 (09:00→17:37)
[2017-07-31] MEDS: Heparin 5000 units/ml inj SUBQ SCH ×2 (09:00→21:00)
[2017-07-31] MEDS: Theophylline ER 100mg ORAL SCH ×2 (09:00→21:00)
[2017-07-31] MEDS: Sucralfate 1gm tab ORAL SCH ×3 (09:00→17:37)
[2017-07-31] MEDS ORDERED: Haloperidol 5mg/ml Inj IM PRN (10:15)
--- NOTE | 2017-07-31 11:25 | GI Progress Note ---
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 Chao. Assessment/Plan CT AP reviewed, see full report. - mild rectal fecal impaction. - No definite acute process otherwise. - Diverticulosis. No evidence of diverticulitis - Fatty liver - Multiple well circumscribed renal masses. anemia work up reviewed okay for DC per GI standpoint regular diet cont ppi BID + carafate OB stool r/o GI bleed pending monitor H&H, prn transfusions bowel regime >> colace + miralax, mineral oil enema prn ppi fu labs Subjective Subjective limited, agitated wants to go home Objective Last 24 Hour Vital Signs Date Time Temp Pulse Resp B/P (MAP) Pulse Ox O2 Delivery O2 Flow Rate FiO2 07/31/17 08:00 78 07/31/17 08:00 97.5 77 21 139/56 95 Room Air 97.5 07/31/17 07:50 60 18 Room Air 07/31/17 04:00 62 07/31/17 00:00 72 07/30/17 20:49 42 20 Room Air 07/30/17 20:36 172/88 07/30/17 20:00 98.5 86 18 172/88 99 Room Air 98.5 07/30/17 20:00 83 07/30/17 16:00 97.5 78 20 123/65 96 Room Air 2.0 21 97.5 07/30/17 16:00 74 07/30/17 12:00 38 07/30/17 12:00 97.7 55 20 151/48 96 Room Air 2.0 21 97.7 Intake and Output 07/30/17 07/31/17 19:00 07:00 Intake Total 500 ml 240 ml Balance 500 ml 240 ml Intake Oral 500 ml 240 ml # Voids 1 # Bowel Movements 1 Laboratory Tests Test 07/30/17 15:30 Stool Occult Blood Pending Height (Feet): 5 Height (Inches): 5.00 Weight (Pounds): 183 General Appearance: WD/WN, no apparent distress, alert, morbidly obese Cardiovascular: normal rate Respiratory/Chest: normal breath sounds, no respiratory distress Abdominal Exam: normal bowel sounds, non tender, soft Extremities: non-tender Kevin Garcia NP July 31, 2017 11:25
[2017-07-31 12:00] VITALS: BP 135/63
--- NOTE | 2017-07-31 12:17 | Pulmonology Progress Note ---
Assessment/Plan Problems: (1) Acute asthma exacerbation (2) Pulmonary edema (3) Bradycardia (4) History of asthma (5) History of hypertension Assessment/Plan bradycardia has resolved respiratory treatment titrate fio2 to sat of 92% sputum induction echo reviewed: EF 60%, moderate pulmonary hypertension dvt prophylaxis f/u cardiology recommendations. dc planning Subjective ROS Limited/Unobtainable: No Constitutional: Reports: no symptoms HEENT: Repors: no symptoms Respiratory: Reports: no symptoms Allergies: Coded Allergies: CODEINE (Verified Allergy, Unknown, 07/29/17) EGG (Verified Allergy, Unknown, 07/29/17) LISINOPRIL (Verified Allergy, Unknown, 07/29/17) MILK (Verified Allergy, Unknown, 07/29/17) PENICILLINS (Verified Allergy, Unknown, 07/29/17) Objective Last 24 Hour Vital Signs Date Time Temp Pulse Resp B/P (MAP) Pulse Ox O2 Delivery O2 Flow Rate FiO2 07/31/17 08:00 78 07/31/17 08:00 97.5 77 21 139/56 95 Room Air 97.5 07/31/17 07:50 60 18 Room Air 07/31/17 04:00 62 07/31/17 00:00 72 07/30/17 20:49 42 20 Room Air 07/30/17 20:36 172/88 07/30/17 20:00 98.5 86 18 172/88 99 Room Air 98.5 07/30/17 20:00 83 07/30/17 16:00 97.5 78 20 123/65 96 Room Air 2.0 21 97.5 07/30/17 16:00 74 Intake and Output 07/30/17 07/31/17 19:00 07:00 Intake Total 500 ml 240 ml Balance 500 ml 240 ml Intake Oral 500 ml 240 ml # Voids 1 # Bowel Movements 1 General Appearance: WD/WN HEENT: normocephalic, atraumatic Respiratory/Chest: chest wall non-tender, lungs clear Cardiovascular: normal peripheral pulses, normal rate Abdomen: normal bowel sounds Genitourinary: normal external genitalia Neurologic/Psychiatric: reading interventionist II-XII grossly normal Microbiology Date/Time Source Procedure Growth Status 07/29/17 09:49 Nasal Nares MRSA Culture - Final NO METHICILLIN RESISTANT STAPH AUREUS... Complete 07/29/17 09:55 Urine,Clean Catch Urine Culture - Final Escherichia Coli Complete 07/29/17 09:49 Rectum VRE Culture - Final NO VANCOMYCIN RESISTANT ENTEROCOCCUS ... Complete Laboratory Tests 07/30/17 15:30: Stool Occult Blood [Pending] Current Medications Medications (Trade) Dose Ordered Sig/Edgar Route PRN Reason Start Time Stop Time Status Last Admin Dose Admin Albuterol/ Ipratropium (Albuterol/ Ipratropium) 3 ml EVERY 4 HOURS PRN HHN dyspnea 07/29/17 09:00 08/03/17 08:59 Baclofen (Lioresal) 5 mg THREE TIMES A DAY ORAL 07/29/17 13:00 08/28/17 12:59 07/30/17 17:29 Dextrose (Dextrose 50%) 25 ml STAT PRN IV Hypoglycemia 07/30/17 09:00 08/29/17 08:59 Dextrose (Dextrose 50%) 50 ml STAT PRN IV Hypoglycemia 07/30/17 09:00 08/29/17 08:59 Diatrizoate Meglum/ Diatrizoate Sod (Gastrografin) 60 ml NOW PRN RECTAL Radiology Procedure 07/30/17 10:00 08/01/17 09:50 Docusate Sodium (Colace) 100 mg THREE TIMES A DAY ORAL 07/29/17 18:00 08/28/17 17:59 07/30/17 17:29 Gabapentin (Neurontin) 300 mg THREE TIMES A DAY ORAL 07/29/17 13:00 08/28/17 12:59 07/30/17 17:28 Haloperidol Lactate (Haldol) 5 mg Q6H PRN IM Agitation 07/31/17 10:15 08/30/17 10:14 Heparin Sodium (Porcine) (Heparin 5000 units/ml) 5,000 units EVERY 12 HOURS SUBQ 07/29/17 11:00 08/28/17 10:59 07/30/17 20:39 Insulin Aspart (NovoLOG) BEFORE MEALS AND HS SUBQ 07/30/17 11:30 08/29/17 11:29 07/30/17 11:42 Ketorolac Tromethamine (Toradol 30mg) 30 mg EVERY 8 HOURS PRN IV moderate pain 4-6 07/29/17 09:00 08/03/17 08:59 Levofloxacin 100 ml @ 100 mls/hr Q24H IVPB 07/29/17 14:00 08/05/17 13:59 07/30/17 13:32 Lorazepam (Ativan 2mg/ml 1ml) 0.5 mg Q4H PRN IV For Anxiety 07/29/17 09:00 08/05/17 08:59 Losartan Potassium (Cozaar) 100 mg BEDTIME ORAL 07/29/17 21:00 08/28/17 20:59 07/30/17 20:36 Methylprednisolone Sodium Succinate (Solu-MEDROL) 60 mg EVERY 6 HOURS IV 07/29/17 12:00 08/28/17 11:59 07/31/17 00:25 Mineral Oil (Fleet's Mineral Oil Enema) 133 ml DAILYPRN PRN RECTAL CONSTIPATION 07/30/17 13:15 08/29/17 13:14 Nitroglycerin (Ntg) 0.4 mg Q5M X 3 DOSES PRN SL Prn Chest Pain 07/29/17 09:00 08/28/17 08:59 Olanzapine (ZyPREXA) 5 mg BEDTIME ORAL 07/31/17 21:00 08/30/17 20:59 Ondansetron HCl (Zofran) 4 mg Q6H PRN IVP Nausea & Vomiting 07/29/17 09:00 08/28/17 08:59 Pantoprazole (Protonix) 40 mg BID ORAL 07/29/17 11:15 08/28/17 11:14 07/30/17 17:28 Polyethylene Glycol (Miralax) 17 gm BEDTIME ORAL 07/29/17 21:00 08/28/17 20:59 07/30/17 20:36 Sucralfate (Carafate) 1 gm THREE TIMES A DAY ORAL 07/29/17 13:00 08/28/17 12:59 07/30/17 17:29 Temazepam (Restoril) 15 mg HSPRN PRN ORAL Insomnia 07/29/17 09:00 08/05/17 08:59 Theophylline (Sean-Dur) 100 mg EVERY 12 HOURS ORAL 07/29/17 11:15 08/28/17 11:14 07/30/17 20:36 Sherri Phillips MD July 31, 2017 12:17
--- NOTE | 2017-07-31 14:41 | General Progress Note ---
Assessment/Plan Problem List: (1) Hypoxia ICD Codes: R09.02 - Hypoxemia SNOMED: 853263853 (2) Diabetes ICD Codes: E11.9 - Type 2 diabetes mellitus without complications SNOMED: 58616023 (3) Bradycardia ICD Codes: R00.1 - Bradycardia, unspecified SNOMED: 10409037 (4) Bronchospasm ICD Codes: J98.01 - Acute bronchospasm SNOMED: 6041098 (5) GERD (gastroesophageal reflux disease) ICD Codes: K21.9 - Gastro-esophageal reflux disease without esophagitis SNOMED: 968756755 Status: unchanged Assessment/Plan o2 pulm tx abx ot pt diet cbc bmp am Subjective Constitutional: Reports: weakness Allergies: Coded Allergies: CODEINE (Verified Allergy, Unknown, 07/29/17) EGG (Verified Allergy, Unknown, 07/29/17) LISINOPRIL (Verified Allergy, Unknown, 07/29/17) MILK (Verified Allergy, Unknown, 07/29/17) PENICILLINS (Verified Allergy, Unknown, 07/29/17) All Systems: reviewed and negative except above Subjective sleepy calm in bed Objective Last 24 Hour Vital Signs Date Time Temp Pulse Resp B/P (MAP) Pulse Ox O2 Delivery O2 Flow Rate FiO2 07/31/17 12:00 97.9 65 21 135/63 98 Room Air 97.9 07/31/17 12:00 59 07/31/17 08:00 78 07/31/17 08:00 97.5 77 21 139/56 95 Room Air 97.5 07/31/17 07:50 60 18 Room Air 07/31/17 04:00 62 07/31/17 00:00 72 07/30/17 20:49 42 20 Room Air 07/30/17 20:36 172/88 07/30/17 20:00 98.5 86 18 172/88 99 Room Air 98.5 07/30/17 20:00 83 07/30/17 16:00 97.5 78 20 123/65 96 Room Air 2.0 21 97.5 07/30/17 16:00 74 Intake and Output 07/30/17 07/31/17 19:00 07:00 Intake Total 500 ml 240 ml Balance 500 ml 240 ml Intake Oral 500 ml 240 ml # Voids 1 # Bowel Movements 1 Laboratory Tests 07/30/17 15:30: Stool Occult Blood Negative Height (Feet): 5 Height (Inches): 5.00 Weight (Pounds): 183 General Appearance: lethargic EENT: normal ENT inspection Neck: normal alignment Cardiovascular: normal peripheral pulses, normal rate, regular rhythm Respiratory/Chest: chest wall non-tender, decreased breath sounds Abdomen: normal bowel sounds, non tender, soft Extremities: normal inspection Edema: no edema noted Arm (L), no edema noted Arm (R), no edema noted Leg (L), no edema noted Leg (R), no edema noted Pedal (L), no edema noted Pedal (R), no edema noted Generalized Neurologic: motor weakness Skin: normal pigmentation, warm/dry Anderson Molina DO July 31, 2017 14:41
--- NOTE | 2017-07-31 15:54 | Consultation ---
History of Present Illness General Date patient seen: July 30, 2017 Chief Complaint: Upper Respiratory Illness Referring physician: LEELEE MARIO Reason for Consultation: dypsnea Present Illness HPI 87-year-old aa female, who presents to the hospital via EMS for cough, wheezing and pressure-like chest pain. the pt has hx of dementia and depression. she has been refusing her meds and snaps at staff illogical and not engaged. the pt unable to have a logical conversation. Allergies: Coded Allergies: CODEINE (Verified Allergy, Unknown, 07/29/17) EGG (Verified Allergy, Unknown, 07/29/17) LISINOPRIL (Verified Allergy, Unknown, 07/29/17) MILK (Verified Allergy, Unknown, 07/29/17) PENICILLINS (Verified Allergy, Unknown, 07/29/17) Medication History Scheduled Amlodipine Besylate (Norvasc), 5 MG ORAL BID, (Reported) Baclofen* (Baclofen*), 5 MG ORAL THREE TIMES A DAY, (Reported) Baclofen* (Baclofen*), 5 MG ORAL THREE TIMES A DAY, (Reported) Dextran 70/Hypromellose (Artificial Tears Eye Drops*), 1 DROP BOTH EYES Q6HR, ( Reported) Docusate Sodium* (Colace*), 100 MG ORAL BID, (Reported) Folic Acid* (Folic Acid*), 1 MG ORAL DAILY, (Reported) Gabapentin* (Gabapentin*), 300 MG ORAL THREE TIMES A DAY, (Reported) Insulin Aspart* (Novolog*), 0 SUBQ BID, (Reported) Isosorbide Mononitrate (Isosorbide Mononitrate), 30 MG PO DAILY, (Reported) Labetalol Hcl* (Normodyne*), 100 MG ORAL Q6HR, (Reported) Lidocaine HCL 2% Jelly* (Lidocaine Jelly 2%*), 5 ML TOPIC BID, (Reported) Losartan Potassium* (Losartan Potassium*), 100 MG ORAL BEDTIME, (Reported) Lovastatin (Lovastatin), 40 MG ORAL BEDTIME, (Reported) Magnesium Hydroxide* (Milk Of Magnesia*), 30 ML ORAL BID, (Reported) Metformin Hcl* (Metformin Hcl*), 1,000 MG ORAL BID, (Reported) Methocarbamol* (Robaxin*), 500 MG PO QID, (Reported) Metoprolol Tartrate* (Metoprolol Tartrate*), 50 MG ORAL EVERY 12 HOURS, ( Reported) Na Phos,M-B/Na Phos,Di-Ba* (Fleet Enema*), 133 ML RECTAL DAILY, (Reported) Pantoprazole* (Pantoprazole*), 40 MG ORAL BID, (Reported) Sennosides (Senna Laxative), 8.6 MG PO BEDTIME, (Reported) Sucralfate* (Carafate*), 1 GM ORAL THREE TIMES A DAY, (Reported) Vitamin D (Vitamin D3), 2,000 UNITS ORAL DAILY, (Reported) Scheduled PRN Acetaminophen* (Acetaminophen 325MG Tablet*), 650 MG ORAL Q6H PRN for Pain Scale (3-5), (Reported) Miscellaneous Medications Isosorbide Mononitrate (Isosorbide Mononitrate), 30 MG PO, (Reported) Nitroglycerin (Nitroglycerin), 0.4 MG SL, (Reported) Patient History Limited by: medical condition History Provided By: Patient, Medical Record, PMD Healthcare decision maker Resuscitation status Full Code Advanced Directive on File No Past Medical/Surgical History Past Medical/Surgical History: (1) Dementia (2) History of asthma (3) History of hypertension (4) Pulmonary edema (5) Acute asthma exacerbation (6) Abdominal distension (7) Anemia (8) Hiatal hernia (9) Barcenas esophagus (10) GERD (gastroesophageal reflux disease) (11) Bronchospasm (12) Bradycardia (13) Dyspnea (14) UTI (urinary tract infection) (15) Fecal impaction (16) Diabetes (17) Hypoxia Review of Systems Psychiatric: Reports: prior hx, anxiety, depressed feelings, emotional problems Physical Exam General Appearance: no apparent distress, alert, agitated Last 24 Hour Vital Signs Date Time Temp Pulse Resp B/P (MAP) Pulse Ox O2 Delivery O2 Flow Rate FiO2 07/31/17 12:00 97.9 65 21 135/63 98 Room Air 97.9 07/31/17 12:00 59 07/31/17 08:00 78 07/31/17 08:00 97.5 77 21 139/56 95 Room Air 97.5 07/31/17 07:50 60 18 Room Air 07/31/17 04:00 62 07/31/17 00:00 72 07/30/17 20:49 42 20 Room Air 07/30/17 20:36 172/88 07/30/17 20:00 98.5 86 18 172/88 99 Room Air 98.5 07/30/17 20:00 83 07/30/17 16:00 97.5 78 20 123/65 96 Room Air 2.0 21 97.5 07/30/17 16:00 74 Intake and Output 07/30/17 07/31/17 19:00 07:00 Intake Total 500 ml 240 ml Balance 500 ml 240 ml Intake Oral 500 ml 240 ml # Voids 1 # Bowel Movements 1 Height (Feet): 5 Height (Inches): 5.00 Weight (Pounds): 183 Medications Current Medications Medications (Trade) Dose Ordered Sig/Edgar Route PRN Reason Start Time Stop Time Status Last Admin Dose Admin Albuterol/ Ipratropium (Albuterol/ Ipratropium) 3 ml EVERY 4 HOURS PRN HHN dyspnea 07/29/17 09:00 08/03/17 08:59 Baclofen (Lioresal) 5 mg THREE TIMES A DAY ORAL 07/29/17 13:00 08/28/17 12:59 07/30/17 17:29 Dextrose (Dextrose 50%) 25 ml STAT PRN IV Hypoglycemia 07/30/17 09:00 08/29/17 08:59 Dextrose (Dextrose 50%) 50 ml STAT PRN IV Hypoglycemia 07/30/17 09:00 08/29/17 08:59 Diatrizoate Meglum/ Diatrizoate Sod (Gastrografin) 60 ml NOW PRN RECTAL Radiology Procedure 07/30/17 10:00 08/01/17 09:50 Docusate Sodium (Colace) 100 mg THREE TIMES A DAY ORAL 07/29/17 18:00 08/28/17 17:59 07/30/17 17:29 Gabapentin (Neurontin) 300 mg THREE TIMES A DAY ORAL 07/29/17 13:00 08/28/17 12:59 07/30/17 17:28 Haloperidol Lactate (Haldol) 5 mg Q6H PRN IM Agitation 07/31/17 10:15 08/30/17 10:14 Heparin Sodium (Porcine) (Heparin 5000 units/ml) 5,000 units EVERY 12 HOURS SUBQ 07/29/17 11:00 08/28/17 10:59 07/30/17 20:39 Insulin Aspart (NovoLOG) BEFORE MEALS AND HS SUBQ 07/30/17 11:30 08/29/17 11:29 07/30/17 11:42 Ketorolac Tromethamine (Toradol 30mg) 30 mg EVERY 8 HOURS PRN IV moderate pain 4-6 07/29/17 09:00 08/03/17 08:59 Levofloxacin 100 ml @ 100 mls/hr Q24H IVPB 07/29/17 14:00 08/05/17 13:59 07/30/17 13:32 Lorazepam (Ativan 2mg/ml 1ml) 0.5 mg Q4H PRN IV For Anxiety 07/29/17 09:00 08/05/17 08:59 Losartan Potassium (Cozaar) 100 mg BEDTIME ORAL 07/29/17 21:00 08/28/17 20:59 07/30/17 20:36 Methylprednisolone Sodium Succinate (Solu-MEDROL) 60 mg EVERY 6 HOURS IV 07/29/17 12:00 08/28/17 11:59 07/31/17 00:25 Mineral Oil (Fleet's Mineral Oil Enema) 133 ml DAILYPRN PRN RECTAL CONSTIPATION 07/30/17 13:15 08/29/17 13:14 Nitroglycerin (Ntg) 0.4 mg Q5M X 3 DOSES PRN SL Prn Chest Pain 07/29/17 09:00 08/28/17 08:59 Olanzapine (ZyPREXA) 5 mg BEDTIME ORAL 07/31/17 21:00 08/30/17 20:59 Ondansetron HCl (Zofran) 4 mg Q6H PRN IVP Nausea & Vomiting 07/29/17 09:00 08/28/17 08:59 Pantoprazole (Protonix) 40 mg BID ORAL 07/29/17 11:15 08/28/17 11:14 07/30/17 17:28 Polyethylene Glycol (Miralax) 17 gm BEDTIME ORAL 07/29/17 21:00 08/28/17 20:59 07/30/17 20:36 Sucralfate (Carafate) 1 gm THREE TIMES A DAY ORAL 07/29/17 13:00 08/28/17 12:59 07/30/17 17:29 Temazepam (Restoril) 15 mg HSPRN PRN ORAL Insomnia 07/29/17 09:00 08/05/17 08:59 Theophylline (Sean-Dur) 100 mg EVERY 12 HOURS ORAL 07/29/17 11:15 08/28/17 11:14 07/30/17 20:36 Assessment/Plan Assessment/Plan the pt lacks capacity to make decisions dementia with behavioral issues. the pt refuses care haldol El Zaragoza M.D. July 31, 2017 15:54
--- NOTE | 2017-07-31 15:56 | General Progress Note ---
Assessment/Plan Status: stable, progressing Assessment/Plan the pt lacks capacity to make decisions dementia with behavioral issues. the pt refuses care haldol prn seroquel prn next of kin should make decision Subjective Date patient seen: July 31, 2017 Neurologic/Psychiatric: Reports: anxiety, depressed, emotional problems Allergies: Coded Allergies: CODEINE (Verified Allergy, Unknown, 07/29/17) EGG (Verified Allergy, Unknown, 07/29/17) LISINOPRIL (Verified Allergy, Unknown, 07/29/17) MILK (Verified Allergy, Unknown, 07/29/17) PENICILLINS (Verified Allergy, Unknown, 07/29/17) Objective Last 24 Hour Vital Signs Date Time Temp Pulse Resp B/P (MAP) Pulse Ox O2 Delivery O2 Flow Rate FiO2 07/31/17 12:00 97.9 65 21 135/63 98 Room Air 97.9 07/31/17 12:00 59 07/31/17 08:00 78 07/31/17 08:00 97.5 77 21 139/56 95 Room Air 97.5 07/31/17 07:50 60 18 Room Air 07/31/17 04:00 62 07/31/17 00:00 72 07/30/17 20:49 42 20 Room Air 07/30/17 20:36 172/88 07/30/17 20:00 98.5 86 18 172/88 99 Room Air 98.5 07/30/17 20:00 83 07/30/17 16:00 97.5 78 20 123/65 96 Room Air 2.0 21 97.5 07/30/17 16:00 74 Intake and Output 07/30/17 07/31/17 19:00 07:00 Intake Total 500 ml 240 ml Balance 500 ml 240 ml Intake Oral 500 ml 240 ml # Voids 1 # Bowel Movements 1 Height (Feet): 5 Height (Inches): 5.00 Weight (Pounds): 183 General Appearance: WD/WN, no apparent distress, alert Neurologic: oriented x 3, responsive, depressed affect El Marcial M.D. July 31, 2017 15:56
[2017-07-31 16:00] VITALS: BP 128/64
--- NOTE | 2017-07-31 18:02 | Infectious Diseases Prog Note ---
Assessment/Plan Assessment/Plan ASSESSMENT: The patient is an 87-year-old female with, COPD UCx : asymptomatic bacteriuria. Normal WBC Afebrile. no Pna Chest x-ray, NAPD. RPR : neg CT of abdomen and pelvis : multiple renal masses, bilateral pleural effusions, and diverticulosis. Osteoarthritis. Hyperlipidemia. GERD/Barcenas esophagitis. History of asthma PLAN: continue the patient on Levaquin day # 3 /5 Monitor CBC. Monitor BMP. Monitor cultures. Subjective Allergies: Coded Allergies: CODEINE (Verified Allergy, Unknown, 07/29/17) EGG (Verified Allergy, Unknown, 07/29/17) LISINOPRIL (Verified Allergy, Unknown, 07/29/17) MILK (Verified Allergy, Unknown, 07/29/17) PENICILLINS (Verified Allergy, Unknown, 07/29/17) Subjective no new complain Objective Vital Signs Last 24 Hour Vital Signs Date Time Temp Pulse Resp B/P (MAP) Pulse Ox O2 Delivery O2 Flow Rate FiO2 07/31/17 16:00 97.8 67 19 128/64 98 Room Air 97.8 07/31/17 12:00 97.9 65 21 135/63 98 Room Air 97.9 07/31/17 12:00 59 07/31/17 08:00 78 07/31/17 08:00 97.5 77 21 139/56 95 Room Air 97.5 07/31/17 07:50 60 18 Room Air 07/31/17 04:00 62 07/31/17 00:00 72 07/30/17 20:49 42 20 Room Air 07/30/17 20:36 172/88 07/30/17 20:00 98.5 86 18 172/88 99 Room Air 98.5 07/30/17 20:00 83 Height (Feet): 5 Height (Inches): 5.00 Weight (Pounds): 183 HEENT: mucous membranes moist Respiratory/Chest: no respiratory distress Cardiovascular: regular rhythm Abdomen: soft, non tender Microbiology Date/Time Source Procedure Growth Status 07/29/17 09:49 Nasal Nares MRSA Culture - Final NO METHICILLIN RESISTANT STAPH AUREUS... Complete 07/29/17 09:55 Urine,Clean Catch Urine Culture - Final Escherichia Coli Complete 07/29/17 09:49 Rectum VRE Culture - Final NO VANCOMYCIN RESISTANT ENTEROCOCCUS ... Complete Current Medications Medications (Trade) Dose Ordered Sig/Edgra Route PRN Reason Start Time Stop Time Status Last Admin Dose Admin Albuterol/ Ipratropium (Albuterol/ Ipratropium) 3 ml EVERY 4 HOURS PRN HHN dyspnea 07/29/17 09:00 08/03/17 08:59 Baclofen (Lioresal) 5 mg THREE TIMES A DAY ORAL 07/29/17 13:00 08/28/17 12:59 07/31/17 17:37 Dextrose (Dextrose 50%) 25 ml STAT PRN IV Hypoglycemia 07/30/17 09:00 08/29/17 08:59 Dextrose (Dextrose 50%) 50 ml STAT PRN IV Hypoglycemia 07/30/17 09:00 08/29/17 08:59 Diatrizoate Meglum/ Diatrizoate Sod (Gastrografin) 60 ml NOW PRN RECTAL Radiology Procedure 07/30/17 10:00 08/01/17 09:50 Docusate Sodium (Colace) 100 mg THREE TIMES A DAY ORAL 07/29/17 18:00 08/28/17 17:59 07/31/17 17:37 Gabapentin (Neurontin) 300 mg THREE TIMES A DAY ORAL 07/29/17 13:00 08/28/17 12:59 07/31/17 17:37 Haloperidol Lactate (Haldol) 5 mg Q6H PRN IM Agitation 07/31/17 10:15 08/30/17 10:14 Heparin Sodium (Porcine) (Heparin 5000 units/ml) 5,000 units EVERY 12 HOURS SUBQ 07/29/17 11:00 08/28/17 10:59 07/30/17 20:39 Insulin Aspart (NovoLOG) BEFORE MEALS AND HS SUBQ 07/30/17 11:30 08/29/17 11:29 07/30/17 11:42 Ketorolac Tromethamine (Toradol 30mg) 30 mg EVERY 8 HOURS PRN IV moderate pain 4-6 07/29/17 09:00 08/03/17 08:59 Levofloxacin 100 ml @ 100 mls/hr Q24H IVPB 07/29/17 14:00 08/05/17 13:59 07/30/17 13:32 Lorazepam (Ativan 2mg/ml 1ml) 0.5 mg Q4H PRN IV For Anxiety 07/29/17 09:00 08/05/17 08:59 Losartan Potassium (Cozaar) 100 mg BEDTIME ORAL 07/29/17 21:00 08/28/17 20:59 07/30/17 20:36 Methylprednisolone Sodium Succinate (Solu-MEDROL) 60 mg EVERY 6 HOURS IV 07/29/17 12:00 08/28/17 11:59 07/31/17 00:25 Mineral Oil (Fleet's Mineral Oil Enema) 133 ml DAILYPRN PRN RECTAL CONSTIPATION 07/30/17 13:15 08/29/17 13:14 Nitroglycerin (Ntg) 0.4 mg Q5M X 3 DOSES PRN SL Prn Chest Pain 07/29/17 09:00 08/28/17 08:59 Olanzapine (ZyPREXA) 5 mg BEDTIME ORAL 07/31/17 21:00 08/30/17 20:59 Ondansetron HCl (Zofran) 4 mg Q6H PRN IVP Nausea & Vomiting 07/29/17 09:00 08/28/17 08:59 Pantoprazole (Protonix) 40 mg BID ORAL 07/29/17 11:15 08/28/17 11:14 07/31/17 17:37 Polyethylene Glycol (Miralax) 17 gm BEDTIME ORAL 07/29/17 21:00 08/28/17 20:59 07/30/17 20:36 Sucralfate (Carafate) 1 gm THREE TIMES A DAY ORAL 07/29/17 13:00 08/28/17 12:59 07/31/17 17:37 Temazepam (Restoril) 15 mg HSPRN PRN ORAL Insomnia 07/29/17 09:00 08/05/17 08:59 Theophylline (Sean-Dur) 100 mg EVERY 12 HOURS ORAL 07/29/17 11:15 08/28/17 11:14 07/30/17 20:36 Shaggy Reyes MD July 31, 2017 18:01
--- NOTE | 2017-07-31 18:43 | Neurology Progress Note ---
Interim History Interim History Interim History Ms. Benites feels relatively well. She has not been abe her medicines. She continues to have cognitive dysfunction. She continues to be generally weak. She denies any new neurologic symptoms. She is eager to go home. Review of Systems Neuro Review of Systems Benign. Objective Physical Exam Last Vital Signs Date Time Temp Pulse Resp B/P (MAP) Pulse Ox O2 Delivery O2 Flow Rate FiO2 07/31/17 16:00 97.8 67 19 128/64 98 Room Air 97.8 07/30/17 16:00 2.0 21 Neurologic Exam Objective PHYSICAL EXAMINATION: GENERAL: She is a well-developed and well-nourished, obese, black lady, sitting up at the edge of her bed, in no acute distress. HEAD: Head normocephalic and atraumatic. NECK: No neck rigidity was observed. EENT: Examination benign. NEUROLOGIC EXAMINATION: MENTAL STATUS EXAMINATION: She was awake and alert. She was oriented to self, hospital, and July 31, 2017. She did not know the name of the hospital. She was able to recall 3/3 words immediately, but could only remember 1/3 words in 1 minute and 3 minutes. She was able to remember presidents Trump through Johnson senior with minimal hints. Her mathematical skills were impaired. Her visuospatial function was also impaired. SPEECH: She had no dysarthria. LANGUAGE: She had anomia for low and mid frequency words. CRANIAL NERVE EXAMINATION: II: The visual daniels were intact to confrontation testing. III, IV & : External ocular movements were full and the pupils 3 mm in diameter, equal, round, regular, and reactive sluggishly to light. V: She had normal facial sensations, and the temporales, masseters, and pterygoids functioned normally. VII: She had a left seventh central facial paresis. VIII: She was able to hear well bilaterally and had no nystagmus. IX: The palate moved symmetrically on phonation. X: She had no hoarseness of voice. XI: The sternocleidomastoids and trapezii functioned normally. XII: The tongue was in the midline without any fasciculations or atrophy. MOTOR SYSTEM: Tone was normal in all four extremities. Examination of muscle mass revealed significant wasting of the hand muscles on the left side more than the right with a left hand contracture. Examination of power was exceedingly difficult to perform because of varying degrees of effort. 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 SENSORY EXAMINATION: She complained of altered sensations in her left hand but normal sensations in the right hand and both feet. REFLEXES: 2+ on the right and 1+ on the left at the biceps, triceps, brachioradialis and knees. 0 at both ankles. The plantar responses were flexor bilaterally. COORDINATION, STANCE & GAIT: Could not be tested. Impression/Recommendations Diagnostic Impression 1. Ms Deepika Benites is an 87-year-old right-handed black lady, who does have a past history of hypertension, diabetes mellitus, dementia, and loss of ability to walk approximately 3 to 4 years ago following which she has been living in a half-way where she fell down and had multiple fractures with loss of ability to use the left hand and then what she believes was a stroke a few years ago with left facial twisting and problems moving a right hand. These problems have continued. 2. She feels relatively well. She continues to have cognitive dysfunction. She continues to be generally weak. She denies any new neurologic symptoms. 3. On neurological examination, at this time, she does demonstrate problems with orientation, recent and remote memory, visuospatial function, higher cognitive function, and language. 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 4. Her Carotid duplex was benign for significant stenosis. 5. Her daughter refused brain imaging and thus it is unclear as to whether she has had a stroke or not. 6. 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 Recommendations 1. Continue management thus far. 2. She was told to keep her blood pressure and blood sugar under good control. 3. Can be discharged from a neurologic point of view. Wilber Sánchez M.D., M.S.P.Sathya. WILBER SÁNCHEZ July 31, 2017 18:43
[2017-07-31 20:00] VITALS: BP 159/75
[2017-07-31] MEDS: Miralax 17gm pkt ORAL SCH (21:00)
[2017-07-31] MEDS: Losartan 50mg tab ORAL SCH (21:00)
[2017-08-01] MEDS: Solu-MEDROL 125mg Inj IV SCH (06:00)
[2017-08-01] MEDS: NovoLOG Insulin Flexpen SUBQ SCH ×4 (06:02→22:38)
[2017-08-01 08:00] VITALS: BP 169/77
[2017-08-01] MEDS: Sucralfate 1gm tab ORAL SCH ×3 (09:23→18:35)
[2017-08-01] MEDS: Theophylline ER 100mg ORAL SCH ×2 (09:23→21:00)
[2017-08-01] MEDS: Docusate 100mg cap ORAL SCH ×3 (09:23→18:35)
[2017-08-01] MEDS: Heparin 5000 units/ml inj SUBQ SCH ×2 (09:25→21:00)
--- NOTE | 2017-08-01 10:31 | Infectious Diseases Prog Note ---
Assessment/Plan Assessment/Plan ASSESSMENT: The patient is an 87-year-old female with, COPD exacerbation, no Pna Chest x-ray, NAPD. UCx : asymptomatic bacteriuria. Normal WBC Afebrile. RPR : neg CT of abdomen and pelvis : multiple renal masses, bilateral pleural effusions, and diverticulosis. Osteoarthritis. Hyperlipidemia. GERD/Barcenas esophagitis. History of asthma PLAN: continue the patient on Levaquin day # 4 /5 Monitor CBC. Monitor BMP. Monitor cultures. Subjective Allergies: Coded Allergies: CODEINE (Verified Allergy, Unknown, 07/29/17) EGG (Verified Allergy, Unknown, 07/29/17) LISINOPRIL (Verified Allergy, Unknown, 07/29/17) MILK (Verified Allergy, Unknown, 07/29/17) PENICILLINS (Verified Allergy, Unknown, 07/29/17) Subjective comfortable Objective Vital Signs Last 24 Hour Vital Signs Date Time Temp Pulse Resp B/P (MAP) Pulse Ox O2 Delivery O2 Flow Rate FiO2 08/01/17 08:40 72 20 Room Air 21 08/01/17 04:00 57 08/01/17 00:00 57 07/31/17 20:28 64 20 Room Air 07/31/17 20:00 97.5 64 20 159/75 95 Room Air 97.5 07/31/17 20:00 64 07/31/17 16:00 69 07/31/17 16:00 97.8 67 19 128/64 98 Room Air 97.8 07/31/17 12:00 97.9 65 21 135/63 98 Room Air 97.9 07/31/17 12:00 59 Height (Feet): 5 Height (Inches): 5.00 Weight (Pounds): 181 HEENT: mucous membranes moist Cardiovascular: regularly irregular Abdomen: no organomegaly Current Medications Medications (Trade) Dose Ordered Sig/Edgar Route PRN Reason Start Time Stop Time Status Last Admin Dose Admin Albuterol/ Ipratropium (Albuterol/ Ipratropium) 3 ml EVERY 4 HOURS PRN HHN dyspnea 07/29/17 09:00 08/03/17 08:59 Baclofen (Lioresal) 5 mg THREE TIMES A DAY ORAL 07/29/17 13:00 08/28/17 12:59 08/01/17 09:23 Dextrose (Dextrose 50%) 25 ml STAT PRN IV Hypoglycemia 07/30/17 09:00 08/29/17 08:59 Dextrose (Dextrose 50%) 50 ml STAT PRN IV Hypoglycemia 07/30/17 09:00 08/29/17 08:59 Docusate Sodium (Colace) 100 mg THREE TIMES A DAY ORAL 07/29/17 18:00 08/28/17 17:59 08/01/17 09:23 Gabapentin (Neurontin) 300 mg THREE TIMES A DAY ORAL 07/29/17 13:00 08/28/17 12:59 08/01/17 09:23 Haloperidol Lactate (Haldol) 5 mg Q6H PRN IM Agitation 07/31/17 10:15 08/30/17 10:14 Heparin Sodium (Porcine) (Heparin 5000 units/ml) 5,000 units EVERY 12 HOURS SUBQ 07/29/17 11:00 08/28/17 10:59 08/01/17 09:25 Insulin Aspart (NovoLOG) BEFORE MEALS AND HS SUBQ 07/30/17 11:30 08/29/17 11:29 07/30/17 11:42 Ketorolac Tromethamine (Toradol 30mg) 30 mg EVERY 8 HOURS PRN IV moderate pain 4-6 07/29/17 09:00 08/03/17 08:59 Levofloxacin 100 ml @ 100 mls/hr Q24H IVPB 07/29/17 14:00 08/05/17 13:59 07/30/17 13:32 Lorazepam (Ativan 2mg/ml 1ml) 0.5 mg Q4H PRN IV For Anxiety 07/29/17 09:00 08/05/17 08:59 Losartan Potassium (Cozaar) 100 mg BEDTIME ORAL 07/29/17 21:00 08/28/17 20:59 07/30/17 20:36 Methylprednisolone Sodium Succinate (Solu-MEDROL) 60 mg EVERY 6 HOURS IV 07/29/17 12:00 08/28/17 11:59 07/31/17 00:25 Mineral Oil (Fleet's Mineral Oil Enema) 133 ml DAILYPRN PRN RECTAL CONSTIPATION 07/30/17 13:15 08/29/17 13:14 Nitroglycerin (Ntg) 0.4 mg Q5M X 3 DOSES PRN SL Prn Chest Pain 07/29/17 09:00 08/28/17 08:59 Olanzapine (ZyPREXA) 5 mg BEDTIME ORAL 07/31/17 21:00 08/30/17 20:59 Ondansetron HCl (Zofran) 4 mg Q6H PRN IVP Nausea & Vomiting 07/29/17 09:00 08/28/17 08:59 Pantoprazole (Protonix) 40 mg BID ORAL 07/29/17 11:15 08/28/17 11:14 08/01/17 09:22 Polyethylene Glycol (Miralax) 17 gm BEDTIME ORAL 07/29/17 21:00 08/28/17 20:59 07/30/17 20:36 Sucralfate (Carafate) 1 gm THREE TIMES A DAY ORAL 07/29/17 13:00 08/28/17 12:59 08/01/17 09:23 Temazepam (Restoril) 15 mg HSPRN PRN ORAL Insomnia 07/29/17 09:00 08/05/17 08:59 Theophylline (Sean-Dur) 100 mg EVERY 12 HOURS ORAL 07/29/17 11:15 08/28/17 11:14 08/01/17 09:23 Shaggy Reyes MD August 01, 2017 10:31
--- NOTE | 2017-08-01 10:58 | GI Progress Note ---
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 Chao. Assessment/Plan CT AP reviewed, see full report. - mild rectal fecal impaction. - No definite acute process otherwise. - Diverticulosis. No evidence of diverticulitis - Fatty liver - Multiple well circumscribed renal masses. anemia work up reviewed okay for DC per GI standpoint regular diet cont ppi BID + carafate OB stool r/o GI bleed pending monitor H&H, prn transfusions bowel regime >> colace + miralax, mineral oil enema prn ppi fu labs The patient was seen and examined at bedside and all new and available data was reviewed in the patients chart. I agree with the above findings, impression and plan. (Patient seen earlier today. Signature stamp does not reflect patient encounter time.). - Cam Chao MD Subjective Subjective limited, agitated wants to go home Objective Last 24 Hour Vital Signs Date Time Temp Pulse Resp B/P (MAP) Pulse Ox O2 Delivery O2 Flow Rate FiO2 08/01/17 08:40 72 20 Room Air 21 08/01/17 04:00 57 08/01/17 00:00 57 07/31/17 20:28 64 20 Room Air 07/31/17 20:00 97.5 64 20 159/75 95 Room Air 97.5 07/31/17 20:00 64 07/31/17 16:00 69 07/31/17 16:00 97.8 67 19 128/64 98 Room Air 97.8 07/31/17 12:00 97.9 65 21 135/63 98 Room Air 97.9 07/31/17 12:00 59 Intake and Output 07/31/17 08/01/17 19:00 07:00 Intake Total 760 ml Balance 760 ml Intake Oral 760 ml # Voids 3 # Bowel Movements 1 Height (Feet): 5 Height (Inches): 5.00 Weight (Pounds): 181 General Appearance: WD/WN, no apparent distress, alert, morbidly obese Cardiovascular: normal rate Respiratory/Chest: normal breath sounds, no respiratory distress Abdominal Exam: normal bowel sounds, non tender, soft Extremities: non-tender Kevin Garcia NP August 01, 2017 10:58
--- NOTE | 2017-08-01 11:30 | Pulmonology Progress Note ---
Assessment/Plan Problems: (1) Acute asthma exacerbation (2) Pulmonary edema (3) Bradycardia (4) History of asthma (5) History of hypertension Assessment/Plan bradycardia has resolved respiratory treatment titrate fio2 to sat of 92% taper steroids to qd sputum induction echo reviewed: EF 60%, moderate pulmonary hypertension dvt prophylaxis f/u cardiology recommendations. dc planning Subjective ROS Limited/Unobtainable: No Constitutional: Reports: no symptoms HEENT: Repors: no symptoms Respiratory: Reports: no symptoms Allergies: Coded Allergies: CODEINE (Verified Allergy, Unknown, 07/29/17) EGG (Verified Allergy, Unknown, 07/29/17) LISINOPRIL (Verified Allergy, Unknown, 07/29/17) MILK (Verified Allergy, Unknown, 07/29/17) PENICILLINS (Verified Allergy, Unknown, 07/29/17) Objective Last 24 Hour Vital Signs Date Time Temp Pulse Resp B/P (MAP) Pulse Ox O2 Delivery O2 Flow Rate FiO2 08/01/17 08:40 72 20 Room Air 21 08/01/17 04:00 57 08/01/17 00:00 57 07/31/17 20:28 64 20 Room Air 07/31/17 20:00 97.5 64 20 159/75 95 Room Air 97.5 07/31/17 20:00 64 07/31/17 16:00 69 07/31/17 16:00 97.8 67 19 128/64 98 Room Air 97.8 07/31/17 12:00 97.9 65 21 135/63 98 Room Air 97.9 07/31/17 12:00 59 Intake and Output 07/31/17 08/01/17 19:00 07:00 Intake Total 760 ml Balance 760 ml Intake Oral 760 ml # Voids 3 # Bowel Movements 1 General Appearance: WD/WN HEENT: normocephalic, atraumatic Respiratory/Chest: chest wall non-tender, lungs clear Cardiovascular: normal peripheral pulses, normal rate Abdomen: normal bowel sounds, soft, non tender Genitourinary: normal external genitalia Extremities: no cyanosis 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, no motor/sensory deficits Lymphatic: no neck adenopathy Current Medications Medications (Trade) Dose Ordered Sig/Edgar Route PRN Reason Start Time Stop Time Status Last Admin Dose Admin Albuterol/ Ipratropium (Albuterol/ Ipratropium) 3 ml EVERY 4 HOURS PRN HHN dyspnea 07/29/17 09:00 08/03/17 08:59 Baclofen (Lioresal) 5 mg THREE TIMES A DAY ORAL 07/29/17 13:00 08/28/17 12:59 08/01/17 09:23 Dextrose (Dextrose 50%) 25 ml STAT PRN IV Hypoglycemia 07/30/17 09:00 08/29/17 08:59 Dextrose (Dextrose 50%) 50 ml STAT PRN IV Hypoglycemia 07/30/17 09:00 08/29/17 08:59 Docusate Sodium (Colace) 100 mg THREE TIMES A DAY ORAL 07/29/17 18:00 08/28/17 17:59 08/01/17 09:23 Gabapentin (Neurontin) 300 mg THREE TIMES A DAY ORAL 07/29/17 13:00 08/28/17 12:59 08/01/17 09:23 Haloperidol Lactate (Haldol) 5 mg Q6H PRN IM Agitation 07/31/17 10:15 08/30/17 10:14 Heparin Sodium (Porcine) (Heparin 5000 units/ml) 5,000 units EVERY 12 HOURS SUBQ 07/29/17 11:00 08/28/17 10:59 08/01/17 09:25 Insulin Aspart (NovoLOG) BEFORE MEALS AND HS SUBQ 07/30/17 11:30 08/29/17 11:29 07/30/17 11:42 Ketorolac Tromethamine (Toradol 30mg) 30 mg EVERY 8 HOURS PRN IV moderate pain 4-6 07/29/17 09:00 08/03/17 08:59 Levofloxacin 100 ml @ 100 mls/hr Q24H IVPB 07/29/17 14:00 08/05/17 13:59 07/30/17 13:32 Lorazepam (Ativan 2mg/ml 1ml) 0.5 mg Q4H PRN IV For Anxiety 07/29/17 09:00 08/05/17 08:59 Losartan Potassium (Cozaar) 100 mg BEDTIME ORAL 07/29/17 21:00 08/28/17 20:59 07/30/17 20:36 Methylprednisolone Sodium Succinate (Solu-MEDROL) 60 mg EVERY 6 HOURS IV 07/29/17 12:00 08/28/17 11:59 07/31/17 00:25 Mineral Oil (Fleet's Mineral Oil Enema) 133 ml DAILYPRN PRN RECTAL CONSTIPATION 07/30/17 13:15 08/29/17 13:14 Nitroglycerin (Ntg) 0.4 mg Q5M X 3 DOSES PRN SL Prn Chest Pain 07/29/17 09:00 08/28/17 08:59 Olanzapine (ZyPREXA) 5 mg BEDTIME ORAL 07/31/17 21:00 08/30/17 20:59 Ondansetron HCl (Zofran) 4 mg Q6H PRN IVP Nausea & Vomiting 07/29/17 09:00 08/28/17 08:59 Pantoprazole (Protonix) 40 mg BID ORAL 07/29/17 11:15 08/28/17 11:14 08/01/17 09:22 Polyethylene Glycol (Miralax) 17 gm BEDTIME ORAL 07/29/17 21:00 08/28/17 20:59 07/30/17 20:36 Sucralfate (Carafate) 1 gm THREE TIMES A DAY ORAL 07/29/17 13:00 08/28/17 12:59 08/01/17 09:23 Temazepam (Restoril) 15 mg HSPRN PRN ORAL Insomnia 07/29/17 09:00 08/05/17 08:59 Theophylline (Sean-Dur) 100 mg EVERY 12 HOURS ORAL 07/29/17 11:15 08/28/17 11:14 08/01/17 09:23 Sherri Phillips MD August 01, 2017 11:30
[2017-08-01 12:00] VITALS: BP 168/77
[2017-08-01] MEDS ORDERED: Solu-MEDROL 40mg Inj IVP SCH (13:00)
--- NOTE | 2017-08-01 15:46 | General Progress Note ---
Assessment/Plan Problem List: (1) Hypoxia ICD Codes: R09.02 - Hypoxemia SNOMED: 238061431 (2) Diabetes ICD Codes: E11.9 - Type 2 diabetes mellitus without complications SNOMED: 25435568 (3) Bradycardia ICD Codes: R00.1 - Bradycardia, unspecified SNOMED: 09695627 (4) Bronchospasm ICD Codes: J98.01 - Acute bronchospasm SNOMED: 7415807 (5) GERD (gastroesophageal reflux disease) ICD Codes: K21.9 - Gastro-esophageal reflux disease without esophagitis SNOMED: 410215692 Status: progressing, tolerating diet Assessment/Plan o2 pulm tx abx ot pt diet cbc bmp am dc plan w hh if clear Subjective Constitutional: Reports: weakness Allergies: Coded Allergies: CODEINE (Verified Allergy, Unknown, 07/29/17) EGG (Verified Allergy, Unknown, 07/29/17) LISINOPRIL (Verified Allergy, Unknown, 07/29/17) MILK (Verified Allergy, Unknown, 07/29/17) PENICILLINS (Verified Allergy, Unknown, 07/29/17) All Systems: reviewed and negative except above Subjective sleepy calm in bed Objective Last 24 Hour Vital Signs Date Time Temp Pulse Resp B/P (MAP) Pulse Ox O2 Delivery O2 Flow Rate FiO2 08/01/17 08:40 72 20 Room Air 21 08/01/17 04:00 57 08/01/17 00:00 57 07/31/17 20:28 64 20 Room Air 07/31/17 20:00 97.5 64 20 159/75 95 Room Air 97.5 07/31/17 20:00 64 07/31/17 16:00 69 07/31/17 16:00 97.8 67 19 128/64 98 Room Air 97.8 Intake and Output 07/31/17 08/01/17 19:00 07:00 Intake Total 760 ml Balance 760 ml Intake Oral 760 ml # Voids 3 # Bowel Movements 1 Height (Feet): 5 Height (Inches): 5.00 Weight (Pounds): 181 General Appearance: lethargic EENT: normal ENT inspection Neck: normal alignment Cardiovascular: normal peripheral pulses, normal rate, regular rhythm Respiratory/Chest: chest wall non-tender, decreased breath sounds Abdomen: normal bowel sounds, non tender, soft Extremities: normal inspection Edema: no edema noted Arm (L), no edema noted Arm (R), no edema noted Leg (L), no edema noted Leg (R), no edema noted Pedal (L), no edema noted Pedal (R), no edema noted Generalized Neurologic: motor weakness Skin: normal pigmentation, warm/dry Anderson Molina DO August 01, 2017 15:46
[2017-08-01 16:00] VITALS: BP 151/99
--- NOTE | 2017-08-01 16:08 | General Progress Note ---
Assessment/Plan Status: stable Assessment/Plan the pt lacks capacity to make decisions dementia with behavioral issues. the pt refuses care haldol prn seroquel prn next of kin should make decision Subjective Date patient seen: August 01, 2017 Neurologic/Psychiatric: Reports: anxiety, depressed, emotional problems Allergies: Coded Allergies: CODEINE (Verified Allergy, Unknown, 07/29/17) EGG (Verified Allergy, Unknown, 07/29/17) LISINOPRIL (Verified Allergy, Unknown, 07/29/17) MILK (Verified Allergy, Unknown, 07/29/17) PENICILLINS (Verified Allergy, Unknown, 07/29/17) Subjective started to take meds and more cooperative Objective Last 24 Hour Vital Signs Date Time Temp Pulse Resp B/P (MAP) Pulse Ox O2 Delivery O2 Flow Rate FiO2 08/01/17 08:40 72 20 Room Air 21 08/01/17 04:00 57 08/01/17 00:00 57 07/31/17 20:28 64 20 Room Air 07/31/17 20:00 97.5 64 20 159/75 95 Room Air 97.5 07/31/17 20:00 64 Intake and Output 07/31/17 08/01/17 19:00 07:00 Intake Total 760 ml Balance 760 ml Intake Oral 760 ml # Voids 3 # Bowel Movements 1 Height (Feet): 5 Height (Inches): 5.00 Weight (Pounds): 181 General Appearance: no apparent distress, alert El Marcial M.D. August 01, 2017 16:08
--- NOTE | 2017-08-01 19:29 | Cardiology Progress Note ---
Assessment/Plan Assessment/Plan 1. 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 Lilly notified. 2. Normal LV systolic function. 3. Mild pulmonary HTN. Subjective Subjective An episode of complete heart block with ventricular escape rhythm. Objective Last 24 Hour Vital Signs Date Time Temp Pulse Resp B/P (MAP) Pulse Ox O2 Delivery O2 Flow Rate FiO2 08/01/17 16:00 98.6 86 20 151/99 96 98.6 08/01/17 12:00 97.7 65 20 168/77 96 97.7 08/01/17 08:40 72 20 Room Air 21 08/01/17 08:00 98.5 72 18 169/77 95 98.5 08/01/17 04:00 57 08/01/17 00:00 57 07/31/17 20:28 64 20 Room Air 07/31/17 20:00 97.5 64 20 159/75 95 Room Air 97.5 07/31/17 20:00 64 Intake and Output 07/31/17 08/01/17 19:00 07:00 Intake Total 760 ml Balance 760 ml Intake Oral 760 ml # Voids 3 # Bowel Movements 1 2D Echo: EF 65%, Mild LVH, Mild MR, RVSP 43 mmHg,Normal intrcardiac filling pressure Objective HEENT: Normocepahic, anicteric, PERRLA, EOMI. NECK: No JVD, no carotid bruit, carotid upstroke 2+ B/L CHEST: Mild wheezes at bases of both lungs. HEART: Normal S1 and S2, RRR, no murmurs, gallops or rubs. ABDOMEN: Obese and nontender, non-distended, + BS. EXTREMITIES: No edema, clubbing or cyanosis. Dontrell Tubbs MD August 01, 2017 19:29
[2017-08-01 20:00] VITALS: BP 146/86
[2017-08-01] MEDS: Miralax 17gm pkt ORAL SCH (21:00)
[2017-08-01] MEDS: Losartan 50mg tab ORAL SCH (21:00)
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
[2017-08-02] VITALS: BP 144/53
[2017-08-02 04:00] VITALS: BP 133/62
[2017-08-02] MEDS: NovoLOG Insulin Flexpen SUBQ SCH ×4 (06:30→20:36)
[2017-08-02 08:00] VITALS: BP 169/63
[2017-08-02] MEDS ORDERED: Solu-MEDROL 40mg Inj IVP SCH (09:00)
[2017-08-02] MEDS: Heparin 5000 units/ml inj SUBQ SCH ×3 (09:00→20:37)
[2017-08-02 09:05] LABS: BASOPHILS % (AUTO) 1.2 % (0.0-2.0); EOSINOPHILS % (AUTO) 0.5 % (0.0-3.0); HEMATOCRIT 40.3 % (37.0-47.0); HEMOGLOBIN 12.8 G/DL (12.0-16.0); LYMPHOCYTES % (AUTO) 22.8 % (20.0-45.0); MEAN CORPUSCULAR VOLUME 91 FL (80-99); MONOCYTES % (AUTO) 5.5 % (1.0-10.0); PLATELET COUNT 255 K/UL (150-450); RED BLOOD COUNT 4.45 M/UL (4.20-5.40); RED CELL DISTRIBUTION WIDTH 13.6 % (11.6-14.8); WHITE BLOOD COUNT 7.4 K/UL (4.8-10.8)
[2017-08-02 09:22] LABS: ANION GAP 8 mmol/L (5-15); BLOOD UREA NITROGEN 29 mg/dL (7-18); CALCIUM 9.2 MG/DL (8.5-10.1); CARBON DIOXIDE 29 MMOL/L (21-32); CHLORIDE 105 MMOL/L (98-107); CREATININE 1.5 MG/DL (0.55-1.30); POTASSIUM 4.4 MMOL/L (3.5-5.1); SODIUM 141 MMOL/L (136-145)
[2017-08-02] MEDS: Docusate 100mg cap ORAL SCH ×3 (09:26→18:28)
[2017-08-02] MEDS: Sucralfate 1gm tab ORAL SCH ×3 (09:26→18:28)
[2017-08-02] MEDS: Theophylline ER 100mg ORAL SCH ×2 (09:26→20:37)
--- NOTE | 2017-08-02 11:06 | GI Progress Note ---
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 Chao. Assessment/Plan CT AP reviewed, see full report. - mild rectal fecal impaction. - No definite acute process otherwise. - Diverticulosis. No evidence of diverticulitis - Fatty liver - Multiple well circumscribed renal masses. anemia work up reviewed fu cardiology recs for possible pacemaker okay for DC per GI standpoint regular diet cont ppi BID + carafate OB stool r/o GI bleed pending monitor H&H, prn transfusions bowel regime >> colace + miralax, mineral oil enema prn ppi fu labs The patient was seen and examined at bedside and all new and available data was reviewed in the patients chart. I agree with the above findings, impression and plan. (Patient seen earlier today. Signature stamp does not reflect patient encounter time.). - Cam Chao MD Subjective Subjective limited, agitated wants to go home Objective Last 24 Hour Vital Signs Date Time Temp Pulse Resp B/P (MAP) Pulse Ox O2 Delivery O2 Flow Rate FiO2 08/02/17 08:11 70 20 Room Air 21 08/02/17 08:00 72 08/02/17 08:00 97.9 72 18 169/63 98 97.9 08/02/17 04:00 97.5 73 20 133/62 97 97.5 08/02/17 04:00 63 08/02/17 00:00 37 08/02/17 00:00 98.0 82 19 144/53 95 98.0 08/01/17 20:00 69 08/01/17 20:00 98.5 85 18 146/86 95 98.5 08/01/17 19:39 66 20 Room Air 21 08/01/17 16:00 98.6 86 20 151/99 96 98.6 08/01/17 16:00 69 08/01/17 12:00 97.7 65 20 168/77 96 97.7 08/01/17 12:00 64 Intake and Output 08/01/17 08/02/17 19:00 07:00 Intake Total 500 ml Balance 500 ml Intake Oral 500 ml # Voids 2 3 # Bowel Movements 1 Laboratory Tests Test 08/02/17 08:15 White Blood Count 7.4 K/UL (4.8-10.8) Red Blood Count 4.45 M/UL (4.20-5.40) Hemoglobin 12.8 G/DL (12.0-16.0) Hematocrit 40.3 % (37.0-47.0) Mean Corpuscular Volume 91 FL (80-99) Mean Corpuscular Hemoglobin 28.8 PG (27.0-31.0) Mean Corpuscular Hemoglobin Concent 31.8 G/DL (32.0-36.0) L Red Cell Distribution Width 13.6 % (11.6-14.8) Platelet Count 255 K/UL (150-450) Mean Platelet Volume 9.5 FL (6.5-10.1) Neutrophils (%) (Auto) 70.0 % (45.0-75.0) Lymphocytes (%) (Auto) 22.8 % (20.0-45.0) Monocytes (%) (Auto) 5.5 % (1.0-10.0) Eosinophils (%) (Auto) 0.5 % (0.0-3.0) Basophils (%) (Auto) 1.2 % (0.0-2.0) Sodium Level 141 MMOL/L (136-145) Potassium Level 4.4 MMOL/L (3.5-5.1) Chloride Level 105 MMOL/L (98-107) Carbon Dioxide Level 29 MMOL/L (21-32) Anion Gap 8 mmol/L (5-15) Blood Urea Nitrogen 29 mg/dL (7-18) H Creatinine 1.5 MG/DL (0.55-1.30) H Estimat Glomerular Filtration Rate mL/min (>60) Glucose Level 143 MG/DL (74-106) H Calcium Level 9.2 MG/DL (8.5-10.1) Height (Feet): 5 Height (Inches): 5.00 Weight (Pounds): 79 General Appearance: WD/WN, no apparent distress, alert, morbidly obese Cardiovascular: normal rate Respiratory/Chest: normal breath sounds, no respiratory distress Abdominal Exam: normal bowel sounds, non tender, soft Extremities: normal range of motion, non-tender Kevin Garcia NP August 02, 2017 11:06
--- NOTE | 2017-08-02 11:16 | Infectious Diseases Prog Note ---
Assessment/Plan Assessment/Plan ASSESSMENT: The patient is an 87-year-old female with, COPD exacerbation, no Pna Chest x-ray, NAPD. UCx : asymptomatic bacteriuria. Normal WBC Afebrile. 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 Osteoarthritis. Hyperlipidemia. GERD/Barcenas esophagitis. History of asthma PLAN: DC Levaquin day # 5 / Monitor CBC. Monitor BMP. Monitor cultures. Cardio fup requires pacemaker implantation, Subjective Allergies: Coded Allergies: CODEINE (Verified Allergy, Unknown, 07/29/17) EGG (Verified Allergy, Unknown, 07/29/17) LISINOPRIL (Verified Allergy, Unknown, 07/29/17) MILK (Verified Allergy, Unknown, 07/29/17) PENICILLINS (Verified Allergy, Unknown, 07/29/17) Subjective Afebrile comfortable Objective Vital Signs Last 24 Hour Vital Signs Date Time Temp Pulse Resp B/P (MAP) Pulse Ox O2 Delivery O2 Flow Rate FiO2 08/02/17 08:11 70 20 Room Air 21 08/02/17 08:00 72 08/02/17 08:00 97.9 72 18 169/63 98 97.9 08/02/17 04:00 97.5 73 20 133/62 97 97.5 08/02/17 04:00 63 08/02/17 00:00 37 08/02/17 00:00 98.0 82 19 144/53 95 98.0 08/01/17 20:00 69 08/01/17 20:00 98.5 85 18 146/86 95 98.5 08/01/17 19:39 66 20 Room Air 21 08/01/17 16:00 98.6 86 20 151/99 96 98.6 08/01/17 16:00 69 08/01/17 12:00 97.7 65 20 168/77 96 97.7 08/01/17 12:00 64 Height (Feet): 5 Height (Inches): 5.00 Weight (Pounds): 79 HEENT: mucous membranes moist Respiratory/Chest: normal breath sounds Cardiovascular: regular rhythm Abdomen: no organomegaly Laboratory Tests Test 08/02/17 08:15 White Blood Count 7.4 K/UL (4.8-10.8) Red Blood Count 4.45 M/UL (4.20-5.40) Hemoglobin 12.8 G/DL (12.0-16.0) Hematocrit 40.3 % (37.0-47.0) Mean Corpuscular Volume 91 FL (80-99) Mean Corpuscular Hemoglobin 28.8 PG (27.0-31.0) Mean Corpuscular Hemoglobin Concent 31.8 G/DL (32.0-36.0) L Red Cell Distribution Width 13.6 % (11.6-14.8) Platelet Count 255 K/UL (150-450) Mean Platelet Volume 9.5 FL (6.5-10.1) Neutrophils (%) (Auto) 70.0 % (45.0-75.0) Lymphocytes (%) (Auto) 22.8 % (20.0-45.0) Monocytes (%) (Auto) 5.5 % (1.0-10.0) Eosinophils (%) (Auto) 0.5 % (0.0-3.0) Basophils (%) (Auto) 1.2 % (0.0-2.0) Sodium Level 141 MMOL/L (136-145) Potassium Level 4.4 MMOL/L (3.5-5.1) Chloride Level 105 MMOL/L (98-107) Carbon Dioxide Level 29 MMOL/L (21-32) Anion Gap 8 mmol/L (5-15) Blood Urea Nitrogen 29 mg/dL (7-18) H Creatinine 1.5 MG/DL (0.55-1.30) H Estimat Glomerular Filtration Rate mL/min (>60) Glucose Level 143 MG/DL (74-106) H Calcium Level 9.2 MG/DL (8.5-10.1) Current Medications Medications (Trade) Dose Ordered Sig/Edgar Route PRN Reason Start Time Stop Time Status Last Admin Dose Admin Albuterol/ Ipratropium (Albuterol/ Ipratropium) 3 ml EVERY 4 HOURS PRN HHN dyspnea 07/29/17 09:00 08/03/17 08:59 Baclofen (Lioresal) 5 mg THREE TIMES A DAY ORAL 07/29/17 13:00 08/28/17 12:59 08/02/17 09:27 Dextrose (Dextrose 50%) 25 ml STAT PRN IV Hypoglycemia 5/15/18 09:00 08/29/17 08:59 Dextrose (Dextrose 50%) 50 ml STAT PRN IV Hypoglycemia 07/30/17 09:00 08/29/17 08:59 Docusate Sodium (Colace) 100 mg THREE TIMES A DAY ORAL 07/29/17 18:00 08/28/17 17:59 08/02/17 09:26 Gabapentin (Neurontin) 300 mg THREE TIMES A DAY ORAL 07/29/17 13:00 08/28/17 12:59 08/02/17 09:26 Haloperidol Lactate (Haldol) 5 mg Q6H PRN IM Agitation 07/31/17 10:15 08/30/17 10:14 Heparin Sodium (Porcine) (Heparin 5000 units/ml) 5,000 units EVERY 12 HOURS SUBQ 07/29/17 11:00 08/28/17 10:59 08/02/17 09:42 Insulin Aspart (NovoLOG) BEFORE MEALS AND HS SUBQ 07/30/17 11:30 08/29/17 11:29 08/01/17 22:38 Ketorolac Tromethamine (Toradol 30mg) 30 mg EVERY 8 HOURS PRN IV moderate pain 4-6 07/29/17 09:00 08/03/17 08:59 Levofloxacin 100 ml @ 100 mls/hr Q24H IVPB 07/29/17 14:00 08/05/17 13:59 08/01/17 16:47 Lorazepam (Ativan 2mg/ml 1ml) 0.5 mg Q4H PRN IV For Anxiety 07/29/17 09:00 08/05/17 08:59 Losartan Potassium (Cozaar) 100 mg BEDTIME ORAL 07/29/17 21:00 08/28/17 20:59 07/30/17 20:36 Methylprednisolone Sodium Succinate (Solu-MEDROL) 60 mg DAILY IVP 08/02/17 09:00 09/01/17 08:59 08/02/17 09:28 Mineral Oil (Fleet's Mineral Oil Enema) 133 ml DAILYPRN PRN RECTAL CONSTIPATION 07/30/17 13:15 08/29/17 13:14 Nitroglycerin (Ntg) 0.4 mg Q5M X 3 DOSES PRN SL Prn Chest Pain 07/29/17 09:00 08/28/17 08:59 Olanzapine (ZyPREXA) 5 mg BEDTIME ORAL 07/31/17 21:00 08/30/17 20:59 Ondansetron HCl (Zofran) 4 mg Q6H PRN IVP Nausea & Vomiting 07/29/17 09:00 08/28/17 08:59 Pantoprazole (Protonix) 40 mg BID ORAL 07/29/17 11:15 08/28/17 11:14 08/02/17 09:26 Polyethylene Glycol (Miralax) 17 gm BEDTIME ORAL 07/29/17 21:00 08/28/17 20:59 07/30/17 20:36 Sucralfate (Carafate) 1 gm THREE TIMES A DAY ORAL 07/29/17 13:00 08/28/17 12:59 08/02/17 09:26 Temazepam (Restoril) 15 mg HSPRN PRN ORAL Insomnia 07/29/17 09:00 08/05/17 08:59 Theophylline (Sean-Dur) 100 mg EVERY 12 HOURS ORAL 07/29/17 11:15 08/28/17 11:14 08/02/17 09:26 Shaggy Reyes MD August 02, 2017 11:16
[2017-08-02 12:00] VITALS: BP 164/68
--- NOTE | 2017-08-02 13:17 | Pulmonology Progress Note ---
Assessment/Plan Problems: (1) Acute asthma exacerbation (2) Pulmonary edema (3) Bradycardia (4) History of asthma (5) History of hypertension Assessment/Plan respiratory treatment titrate fio2 to sat of 92% taper steroids to qd sputum induction echo reviewed: EF 60%, moderate pulmonary hypertension dvt prophylaxis f/u cardiology recommendations. need electrophysiology evaluation Subjective ROS Limited/Unobtainable: No Constitutional: Reports: no symptoms HEENT: Repors: no symptoms Respiratory: Reports: no symptoms Allergies: Coded Allergies: CODEINE (Verified Allergy, Unknown, 07/29/17) EGG (Verified Allergy, Unknown, 07/29/17) LISINOPRIL (Verified Allergy, Unknown, 07/29/17) MILK (Verified Allergy, Unknown, 07/29/17) PENICILLINS (Verified Allergy, Unknown, 07/29/17) Objective Last 24 Hour Vital Signs Date Time Temp Pulse Resp B/P (MAP) Pulse Ox O2 Delivery O2 Flow Rate FiO2 08/02/17 12:00 97.6 63 19 164/68 97 97.6 08/02/17 12:00 59 08/02/17 08:11 70 20 Room Air 21 08/02/17 08:00 72 08/02/17 08:00 97.9 72 18 169/63 98 97.9 08/02/17 04:00 97.5 73 20 133/62 97 97.5 08/02/17 04:00 63 08/02/17 00:00 37 08/02/17 00:00 98.0 82 19 144/53 95 98.0 08/01/17 20:00 69 08/01/17 20:00 98.5 85 18 146/86 95 98.5 08/01/17 19:39 66 20 Room Air 21 08/01/17 16:00 98.6 86 20 151/99 96 98.6 08/01/17 16:00 69 Intake and Output 08/01/17 08/02/17 19:00 07:00 Intake Total 500 ml Balance 500 ml Intake Oral 500 ml # Voids 2 3 # Bowel Movements 1 General Appearance: WD/WN HEENT: normocephalic, atraumatic Respiratory/Chest: chest wall non-tender, normal breath sounds Cardiovascular: normal peripheral pulses, normal rate Abdomen: normal bowel sounds, soft, non tender Genitourinary: normal external genitalia Extremities: no cyanosis Skin: no lesions 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 Laboratory Tests 08/02/17 08:15: White Blood Count 7.4, Red Blood Count 4.45, Hemoglobin 12.8, Hematocrit 40.3, Mean Corpuscular Volume 91, Mean Corpuscular Hemoglobin 28.8, Mean Corpuscular Hemoglobin Concent 31.8L, Red Cell Distribution Width 13.6, Platelet Count 255, Mean Platelet Volume 9.5, Neutrophils (%) (Auto) 70.0, Lymphocytes (%) (Auto) 22.8, Monocytes (%) (Auto) 5.5, Eosinophils (%) (Auto) 0.5, Basophils (%) (Auto ) 1.2, Sodium Level 141, Potassium Level 4.4, Chloride Level 105, Carbon Dioxide Level 29, Anion Gap 8, Blood Urea Nitrogen 29H, Creatinine 1.5H, Estimat Glomerular Filtration Rate , Glucose Level 143H, Calcium Level 9.2 Current Medications Medications (Trade) Dose Ordered Sig/Edgar Route PRN Reason Start Time Stop Time Status Last Admin Dose Admin Albuterol/ Ipratropium (Albuterol/ Ipratropium) 3 ml EVERY 4 HOURS PRN HHN dyspnea 07/29/17 09:00 08/03/17 08:59 Baclofen (Lioresal) 5 mg THREE TIMES A DAY ORAL 07/29/17 13:00 08/28/17 12:59 08/02/17 13:11 Dextrose (Dextrose 50%) 25 ml STAT PRN IV Hypoglycemia 07/30/17 09:00 08/29/17 08:59 Dextrose (Dextrose 50%) 50 ml STAT PRN IV Hypoglycemia 07/30/17 09:00 08/29/17 08:59 Docusate Sodium (Colace) 100 mg THREE TIMES A DAY ORAL 07/29/17 18:00 08/28/17 17:59 08/02/17 13:10 Gabapentin (Neurontin) 300 mg THREE TIMES A DAY ORAL 07/29/17 13:00 08/28/17 12:59 08/02/17 13:11 Haloperidol Lactate (Haldol) 5 mg Q6H PRN IM Agitation 07/31/17 10:15 08/30/17 10:14 Heparin Sodium (Porcine) (Heparin 5000 units/ml) 5,000 units EVERY 12 HOURS SUBQ 07/29/17 11:00 08/28/17 10:59 08/02/17 09:42 Insulin Aspart (NovoLOG) BEFORE MEALS AND HS SUBQ 07/30/17 11:30 08/29/17 11:29 08/02/17 11:47 Ketorolac Tromethamine (Toradol 30mg) 30 mg EVERY 8 HOURS PRN IV moderate pain 4-6 07/29/17 09:00 08/03/17 08:59 Levofloxacin 100 ml @ 100 mls/hr Q24H IVPB 07/29/17 14:00 08/02/17 23:00 08/01/17 16:47 Lorazepam (Ativan 2mg/ml 1ml) 0.5 mg Q4H PRN IV For Anxiety 07/29/17 09:00 08/05/17 08:59 Losartan Potassium (Cozaar) 100 mg BEDTIME ORAL 07/29/17 21:00 08/28/17 20:59 07/30/17 20:36 Methylprednisolone Sodium Succinate (Solu-MEDROL) 60 mg DAILY IVP 08/02/17 09:00 09/01/17 08:59 08/02/17 09:28 Mineral Oil (Fleet's Mineral Oil Enema) 133 ml DAILYPRN PRN RECTAL CONSTIPATION 07/30/17 13:15 08/29/17 13:14 Nitroglycerin (Ntg) 0.4 mg Q5M X 3 DOSES PRN SL Prn Chest Pain 07/29/17 09:00 08/28/17 08:59 Olanzapine (ZyPREXA) 5 mg BEDTIME ORAL 07/31/17 21:00 08/30/17 20:59 Ondansetron HCl (Zofran) 4 mg Q6H PRN IVP Nausea & Vomiting 07/29/17 09:00 08/28/17 08:59 Pantoprazole (Protonix) 40 mg BID ORAL 07/29/17 11:15 08/28/17 11:14 08/02/17 09:26 Polyethylene Glycol (Miralax) 17 gm BEDTIME ORAL 07/29/17 21:00 08/28/17 20:59 07/30/17 20:36 Sucralfate (Carafate) 1 gm THREE TIMES A DAY ORAL 07/29/17 13:00 08/28/17 12:59 08/02/17 13:10 Temazepam (Restoril) 15 mg HSPRN PRN ORAL Insomnia 07/29/17 09:00 08/05/17 08:59 Theophylline (Sean-Dur) 100 mg EVERY 12 HOURS ORAL 07/29/17 11:15 08/28/17 11:14 08/02/17 09:26 Sherri Phillips MD August 02, 2017 13:17
--- NOTE | 2017-08-02 14:56 | Neurology Progress Note ---
Interim History Interim History Interim History Ms. Benites feels relatively well. She continues to have cognitive dysfunction. She continues to be generally weak. She denies any new neurologic symptoms. She has been having episodes of severe bradycardia and episodic ventricular tachycardia. Dr. Lilly feels she needs a cardiac cath and pacemaker. She want to go to [facility] where she usually gets all her care to get her pacemaker. Review of Systems Neuro Review of Systems Benign. Objective Physical Exam Last Vital Signs Date Time Temp Pulse Resp B/P (MAP) Pulse Ox O2 Delivery O2 Flow Rate FiO2 08/02/17 12:00 97.6 63 19 164/68 97 97.6 08/02/17 08:11 Room Air 21 07/30/17 16:00 2.0 Laboratory Tests Test 08/02/17 08:15 White Blood Count 7.4 K/UL (4.8-10.8) Red Blood Count 4.45 M/UL (4.20-5.40) Hemoglobin 12.8 G/DL (12.0-16.0) Hematocrit 40.3 % (37.0-47.0) Mean Corpuscular Volume 91 FL (80-99) Mean Corpuscular Hemoglobin 28.8 PG (27.0-31.0) Mean Corpuscular Hemoglobin Concent 31.8 G/DL (32.0-36.0) L Red Cell Distribution Width 13.6 % (11.6-14.8) Platelet Count 255 K/UL (150-450) Mean Platelet Volume 9.5 FL (6.5-10.1) Neutrophils (%) (Auto) 70.0 % (45.0-75.0) Lymphocytes (%) (Auto) 22.8 % (20.0-45.0) Monocytes (%) (Auto) 5.5 % (1.0-10.0) Eosinophils (%) (Auto) 0.5 % (0.0-3.0) Basophils (%) (Auto) 1.2 % (0.0-2.0) Sodium Level 141 MMOL/L (136-145) Potassium Level 4.4 MMOL/L (3.5-5.1) Chloride Level 105 MMOL/L (98-107) Carbon Dioxide Level 29 MMOL/L (21-32) Anion Gap 8 mmol/L (5-15) Blood Urea Nitrogen 29 mg/dL (7-18) H Creatinine 1.5 MG/DL (0.55-1.30) H Estimat Glomerular Filtration Rate mL/min (>60) Glucose Level 143 MG/DL (74-106) H Calcium Level 9.2 MG/DL (8.5-10.1) Neurologic Exam Objective PHYSICAL EXAMINATION: GENERAL: She is a well-developed and well-nourished, obese, black lady, lying in bed, in no acute distress. HEAD: Head normocephalic and atraumatic. NECK: No neck rigidity was observed. EENT: Examination benign. NEUROLOGIC EXAMINATION: MENTAL STATUS EXAMINATION: She was awake and alert. She was oriented to self, hospital, and July 2017. She did not know the name of the hospital. She was able to recall 3/3 words immediately, but could only remember 1/3 words in 1 minute and 3 minutes. She was able to remember presidents Trump through Johnson senior with minimal hints. Her mathematical skills were impaired. Her visuospatial function was also impaired. SPEECH: She had no dysarthria. LANGUAGE: She had anomia for low and mid frequency words. CRANIAL NERVE EXAMINATION: II: The visual daniels were intact to confrontation testing. III, IV & : External ocular movements were full and the pupils 3 mm in diameter, equal, round, regular, and reactive sluggishly to light. V: She had normal facial sensations, and the temporales, masseters, and pterygoids functioned normally. VII: She had a left seventh central facial paresis. VIII: She was able to hear well bilaterally and had no nystagmus. IX: The palate moved symmetrically on phonation. X: She had no hoarseness of voice. XI: The sternocleidomastoids and trapezii functioned normally. XII: The tongue was in the midline without any fasciculations or atrophy. MOTOR SYSTEM: Tone was normal in all four extremities. Examination of muscle mass revealed significant wasting of the hand muscles on the left side more than the right with a left hand contracture. Examination of power was exceedingly difficult to perform because of varying degrees of effort. 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 SENSORY EXAMINATION: She complained of altered sensations in her left hand but normal sensations in the right hand and both feet. REFLEXES: 2+ on the right and 1+ on the left at the biceps, triceps, brachioradialis and knees. 0 at both ankles. The plantar responses were flexor bilaterally. COORDINATION, STANCE & GAIT: Could not be tested. Impression/Recommendations Diagnostic Impression 1. Ms Deepika Benites is an 87-year-old right-handed black lady, who does have a past history of hypertension, diabetes mellitus, dementia, and loss of ability to walk approximately 3 to 4 years ago following which she has been living in a usp where she fell down and had multiple fractures with loss of ability to use the left hand and then what she believes was a stroke a few years ago with left facial twisting and problems moving a right hand. These problems have continued. 2. She feels relatively well. She continues to have cognitive dysfunction. She continues to be generally weak. She denies any new neurologic symptoms. She has been having episodes of severe bradycardia and episodic ventricular tachycardia. Dr. iLlly feels she needs a cardiac cath and pacemaker. She want to go to [facility] where she usually gets all her care to get her pacemaker. 3. On neurological examination, at this time, she does demonstrate problems with orientation, recent and remote memory, visuospatial function, higher cognitive function, and language. 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 4. Her Carotid duplex was benign for significant stenosis. 5. Her daughter refused brain imaging and thus it is unclear as to whether she has had a stroke or not. 6. 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 Recommendations 1. Continue present management. 2. She was told to keep her blood pressure and blood sugar under good control. 3. Cardiac work-up as per Dr. Giordano. Wilber Sánchez M.D., M.S.P.H. WILBER SÁNCHEZ August 02, 2017 14:56
--- NOTE | 2017-08-02 14:57 | General Progress Note ---
Assessment/Plan Status: stable, progressing Assessment/Plan the pt lacks capacity to make decisions dementia with behavioral issues. the pt refuses care haldol prn seroquel prn next of kin should make decision Subjective Date patient seen: August 02, 2017 Neurologic/Psychiatric: Reports: anxiety, depressed Allergies: Coded Allergies: CODEINE (Verified Allergy, Unknown, 07/29/17) EGG (Verified Allergy, Unknown, 07/29/17) LISINOPRIL (Verified Allergy, Unknown, 07/29/17) MILK (Verified Allergy, Unknown, 07/29/17) PENICILLINS (Verified Allergy, Unknown, 07/29/17) Subjective started to take meds and more cooperative. the pt is less confused Objective Last 24 Hour Vital Signs Date Time Temp Pulse Resp B/P (MAP) Pulse Ox O2 Delivery O2 Flow Rate FiO2 08/02/17 12:00 97.6 63 19 164/68 97 97.6 08/02/17 12:00 59 08/02/17 08:11 70 20 Room Air 21 08/02/17 08:00 72 08/02/17 08:00 97.9 72 18 169/63 98 97.9 08/02/17 04:00 97.5 73 20 133/62 97 97.5 08/02/17 04:00 63 08/02/17 00:00 37 08/02/17 00:00 98.0 82 19 144/53 95 98.0 08/01/17 20:00 69 08/01/17 20:00 98.5 85 18 146/86 95 98.5 08/01/17 19:39 66 20 Room Air 21 08/01/17 16:00 98.6 86 20 151/99 96 98.6 08/01/17 16:00 69 Intake and Output 08/01/17 08/02/17 19:00 07:00 Intake Total 500 ml Balance 500 ml Intake Oral 500 ml # Voids 2 3 # Bowel Movements 1 Laboratory Tests 08/02/17 08:15: White Blood Count 7.4, Red Blood Count 4.45, Hemoglobin 12.8, Hematocrit 40.3, Mean Corpuscular Volume 91, Mean Corpuscular Hemoglobin 28.8, Mean Corpuscular Hemoglobin Concent 31.8L, Red Cell Distribution Width 13.6, Platelet Count 255, Mean Platelet Volume 9.5, Neutrophils (%) (Auto) 70.0, Lymphocytes (%) (Auto) 22.8, Monocytes (%) (Auto) 5.5, Eosinophils (%) (Auto) 0.5, Basophils (%) (Auto ) 1.2, Sodium Level 141, Potassium Level 4.4, Chloride Level 105, Carbon Dioxide Level 29, Anion Gap 8, Blood Urea Nitrogen 29H, Creatinine 1.5H, Estimat Glomerular Filtration Rate , Glucose Level 143H, Calcium Level 9.2 Height (Feet): 5 Height (Inches): 5.00 Weight (Pounds): 79 General Appearance: WD/WN, no apparent distress, alert Neurologic: oriented x 3, responsive, depressed affect El Marcial M.D. August 02, 2017 14:56
--- NOTE | 2017-08-02 15:12 | Cardiac Electrophysiology PN ---
Subjective Subjective EP consult dictated. [id number] Intermittent LBBB and RBBB and 2:1 and Mobitz type2 Obviously needs PPM implant Recurrent Long PMVT. Likely due to bradycardia in setting of QT prolonging agent that will be DCed. Objective Last 24 Hour Vital Signs Date Time Temp Pulse Resp B/P (MAP) Pulse Ox O2 Delivery O2 Flow Rate FiO2 08/02/17 12:00 97.6 63 19 164/68 97 97.6 08/02/17 12:00 59 08/02/17 08:11 70 20 Room Air 21 08/02/17 08:00 72 08/02/17 08:00 97.9 72 18 169/63 98 97.9 08/02/17 04:00 97.5 73 20 133/62 97 97.5 08/02/17 04:00 63 08/02/17 00:00 37 08/02/17 00:00 98.0 82 19 144/53 95 98.0 08/01/17 20:00 69 08/01/17 20:00 98.5 85 18 146/86 95 98.5 08/01/17 19:39 66 20 Room Air 21 08/01/17 16:00 98.6 86 20 151/99 96 98.6 08/01/17 16:00 69 Intake and Output 08/01/17 08/02/17 19:00 07:00 Intake Total 500 ml Balance 500 ml Intake Oral 500 ml # Voids 2 3 # Bowel Movements 1 Laboratory Tests Test 08/02/17 08:15 White Blood Count 7.4 K/UL (4.8-10.8) Red Blood Count 4.45 M/UL (4.20-5.40) Hemoglobin 12.8 G/DL (12.0-16.0) Hematocrit 40.3 % (37.0-47.0) Mean Corpuscular Volume 91 FL (80-99) Mean Corpuscular Hemoglobin 28.8 PG (27.0-31.0) Mean Corpuscular Hemoglobin Concent 31.8 G/DL (32.0-36.0) L Red Cell Distribution Width 13.6 % (11.6-14.8) Platelet Count 255 K/UL (150-450) Mean Platelet Volume 9.5 FL (6.5-10.1) Neutrophils (%) (Auto) 70.0 % (45.0-75.0) Lymphocytes (%) (Auto) 22.8 % (20.0-45.0) Monocytes (%) (Auto) 5.5 % (1.0-10.0) Eosinophils (%) (Auto) 0.5 % (0.0-3.0) Basophils (%) (Auto) 1.2 % (0.0-2.0) Sodium Level 141 MMOL/L (136-145) Potassium Level 4.4 MMOL/L (3.5-5.1) Chloride Level 105 MMOL/L (98-107) Carbon Dioxide Level 29 MMOL/L (21-32) Anion Gap 8 mmol/L (5-15) Blood Urea Nitrogen 29 mg/dL (7-18) H Creatinine 1.5 MG/DL (0.55-1.30) H Estimat Glomerular Filtration Rate mL/min (>60) Glucose Level 143 MG/DL (74-106) H Calcium Level 9.2 MG/DL (8.5-10.1) Dontrell Lilly MD August 02, 2017 15:12
--- NOTE | 2017-08-02 15:42 | General Progress Note ---
Assessment/Plan Problem List: (1) Hypoxia ICD Codes: R09.02 - Hypoxemia SNOMED: 348370819 (2) Diabetes ICD Codes: E11.9 - Type 2 diabetes mellitus without complications SNOMED: 74858697 (3) Bradycardia ICD Codes: R00.1 - Bradycardia, unspecified SNOMED: 28039525 (4) Bronchospasm ICD Codes: J98.01 - Acute bronchospasm SNOMED: 1667313 (5) GERD (gastroesophageal reflux disease) ICD Codes: K21.9 - Gastro-esophageal reflux disease without esophagitis SNOMED: 080956231 Status: unchanged Assessment/Plan o2 pulm tx abx ot pt diet cbc bmp am may need pacer Subjective Constitutional: Reports: weakness Allergies: Coded Allergies: CODEINE (Verified Allergy, Unknown, 07/29/17) EGG (Verified Allergy, Unknown, 07/29/17) LISINOPRIL (Verified Allergy, Unknown, 07/29/17) MILK (Verified Allergy, Unknown, 07/29/17) PENICILLINS (Verified Allergy, Unknown, 07/29/17) All Systems: reviewed and negative except above Subjective sleepy calm in bed Objective Last 24 Hour Vital Signs Date Time Temp Pulse Resp B/P (MAP) Pulse Ox O2 Delivery O2 Flow Rate FiO2 08/02/17 12:00 97.6 63 19 164/68 97 97.6 08/02/17 12:00 59 08/02/17 08:11 70 20 Room Air 21 08/02/17 08:00 72 08/02/17 08:00 97.9 72 18 169/63 98 97.9 08/02/17 04:00 97.5 73 20 133/62 97 97.5 08/02/17 04:00 63 08/02/17 00:00 37 08/02/17 00:00 98.0 82 19 144/53 95 98.0 08/01/17 20:00 69 08/01/17 20:00 98.5 85 18 146/86 95 98.5 08/01/17 19:39 66 20 Room Air 21 08/01/17 16:00 98.6 86 20 151/99 96 98.6 08/01/17 16:00 69 Intake and Output 08/01/17 08/02/17 19:00 07:00 Intake Total 500 ml Balance 500 ml Intake Oral 500 ml # Voids 2 3 # Bowel Movements 1 Laboratory Tests 08/02/17 08:15: White Blood Count 7.4, Red Blood Count 4.45, Hemoglobin 12.8, Hematocrit 40.3, Mean Corpuscular Volume 91, Mean Corpuscular Hemoglobin 28.8, Mean Corpuscular Hemoglobin Concent 31.8L, Red Cell Distribution Width 13.6, Platelet Count 255, Mean Platelet Volume 9.5, Neutrophils (%) (Auto) 70.0, Lymphocytes (%) (Auto) 22.8, Monocytes (%) (Auto) 5.5, Eosinophils (%) (Auto) 0.5, Basophils (%) (Auto ) 1.2, Sodium Level 141, Potassium Level 4.4, Chloride Level 105, Carbon Dioxide Level 29, Anion Gap 8, Blood Urea Nitrogen 29H, Creatinine 1.5H, Estimat Glomerular Filtration Rate , Glucose Level 143H, Calcium Level 9.2 Height (Feet): 5 Height (Inches): 5.00 Weight (Pounds): 79 General Appearance: lethargic EENT: normal ENT inspection Neck: normal alignment Cardiovascular: normal peripheral pulses, normal rate, regular rhythm Respiratory/Chest: chest wall non-tender, decreased breath sounds Abdomen: normal bowel sounds, non tender, soft Extremities: normal inspection Edema: no edema noted Arm (L), no edema noted Arm (R), no edema noted Leg (L), no edema noted Leg (R), no edema noted Pedal (L), no edema noted Pedal (R), no edema noted Generalized Neurologic: motor weakness Skin: normal pigmentation, warm/dry Anderson Molina DO August 02, 2017 15:42
[2017-08-02 16:00] VITALS: BP 127/65
--- NOTE | 2017-08-02 16:56 | Cardiology Progress Note ---
Assessment/Plan Assessment/Plan 1. 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 Lilly notified. 2. Normal LV systolic function. 3. Mild pulmonary HTN. Subjective Subjective Several short runs of NSVT appears to be [place] Point[place], There is QT prolongation. Rhythm shows high degree AV shireen block including CHB. Objective Last 24 Hour Vital Signs Date Time Temp Pulse Resp B/P (MAP) Pulse Ox O2 Delivery O2 Flow Rate FiO2 08/02/17 16:00 53 08/02/17 16:00 97.3 44 19 127/65 96 97.3 08/02/17 12:00 97.6 63 19 164/68 97 97.6 08/02/17 12:00 59 08/02/17 08:11 70 20 Room Air 21 08/02/17 08:00 72 08/02/17 08:00 97.9 72 18 169/63 98 97.9 08/02/17 04:00 97.5 73 20 133/62 97 97.5 08/02/17 04:00 63 08/02/17 00:00 37 08/02/17 00:00 98.0 82 19 144/53 95 98.0 08/01/17 20:00 69 08/01/17 20:00 98.5 85 18 146/86 95 98.5 08/01/17 19:39 66 20 Room Air 21 Intake and Output 08/01/17 08/02/17 19:00 07:00 Intake Total 500 ml Balance 500 ml Intake Oral 500 ml # Voids 2 3 # Bowel Movements 1 Laboratory Tests Test 08/02/17 08:15 White Blood Count 7.4 K/UL (4.8-10.8) Red Blood Count 4.45 M/UL (4.20-5.40) Hemoglobin 12.8 G/DL (12.0-16.0) Hematocrit 40.3 % (37.0-47.0) Mean Corpuscular Volume 91 FL (80-99) Mean Corpuscular Hemoglobin 28.8 PG (27.0-31.0) Mean Corpuscular Hemoglobin Concent 31.8 G/DL (32.0-36.0) L Red Cell Distribution Width 13.6 % (11.6-14.8) Platelet Count 255 K/UL (150-450) Mean Platelet Volume 9.5 FL (6.5-10.1) Neutrophils (%) (Auto) 70.0 % (45.0-75.0) Lymphocytes (%) (Auto) 22.8 % (20.0-45.0) Monocytes (%) (Auto) 5.5 % (1.0-10.0) Eosinophils (%) (Auto) 0.5 % (0.0-3.0) Basophils (%) (Auto) 1.2 % (0.0-2.0) Sodium Level 141 MMOL/L (136-145) Potassium Level 4.4 MMOL/L (3.5-5.1) Chloride Level 105 MMOL/L (98-107) Carbon Dioxide Level 29 MMOL/L (21-32) Anion Gap 8 mmol/L (5-15) Blood Urea Nitrogen 29 mg/dL (7-18) H Creatinine 1.5 MG/DL (0.55-1.30) H Estimat Glomerular Filtration Rate mL/min (>60) Glucose Level 143 MG/DL (74-106) H Calcium Level 9.2 MG/DL (8.5-10.1) Objective HEENT: Normocepahic, anicteric, PERRLA, EOMI. NECK: No JVD, no carotid bruit, carotid upstroke 2+ B/L CHEST: Mild wheezes at bases of both lungs. HEART: Normal S1 and S2, RRR, no murmurs, gallops or rubs. ABDOMEN: Obese and nontender, non-distended, + BS. EXTREMITIES: No edema, clubbing or cyanosis. Dontrell Tubbs MD August 02, 2017 16:56
[2017-08-02] MEDS ORDERED: Albuterol/Ipratropium 3ml neb HHN PRN (17:26)
[2017-08-02] MEDS ORDERED: LORazepam Inj 2mg/ml 1ml IV PRN (17:29)
[2017-08-02] MEDS ORDERED: Fleet's Mineral Oil Enema RECTAL PRN (17:30)
[2017-08-02] MEDS ORDERED: Nitroglycerin Subl 0.4mg tab SL PRN (17:30)
[2017-08-02] MEDS ORDERED: Ketorolac 30mg Inj IV PRN (17:33)
--- NOTE | 2017-08-02 19:31 | Consultation ---
DATE OF CONSULTATION: 08/02/2017 CARDIAC ELECTROPHYSIOLOGY CONSULTATION CONSULTING PHYSICIAN: Dontrell Lilly M.D. REFERRING PHYSICIAN: Dontrell Tubbs M.D. REASON FOR CONSULTATION: Recurrent polymorphic ventricular tachycardia in a patient with intermittent complete heart block and bradycardia. HISTORY OF PRESENT ILLNESS: The patient is an 87-year-old lady with history of hypertension and asthma, who was brought to the emergency room for shortness of breath. The patient was found to have bradycardia with AV block and right and left bundle-branch block morphology. The patient was admitted and was evaluated by Dr. Tubbs. Overnight, the patient had multiple runs of polymorphic ventricular tachycardia. It is of note that the patient also was on antipsychotic agents as well as Levaquin. Initially, the patient was also on beta-micky that was discontinued, but bradycardia persisted. The patient's echocardiogram showed ejection fraction of 60% to 65% with no prior myocardial infarction or known coronary artery disease. PAST MEDICAL HISTORY: 1. Hypertension. 2. Diabetes. FAMILY HISTORY: Noncontributory. SOCIAL HISTORY: She lives in residential. Does not smoke or drink alcohol or use illicit drugs. REVIEW OF SYSTEMS: Negative other than what was mentioned in the history of present illness. PHYSICAL EXAMINATION: VITAL SIGNS: Blood pressure is 164/68, pulse is between 40 to 60, respirations 18, and she is afebrile. HEAD AND NECK: Shows no JVD or carotid bruit. LUNGS: Clear. CARDIOVASCULAR: Shows regular S1 and S2 with no gallop or murmur. ABDOMEN: Soft. EXTREMITIES: No pitting edema. LABORATORY DATA: Sodium 142, potassium 4.5, BUN of 21, creatinine 1.2, glucose of 118, and magnesium is 2. BNP is 1988. Troponin is negative. Her white count is 7.4, hemoglobin 12.4, hematocrit 40.3, and platelet count is 255. ASSESSMENT AND PLAN: 1. Episode of intermittent complete heart block. The patient at baseline has sinus rhythm with complete left bundle-branch block as well as sinus rhythm with right bundle-branch block and left anterior fascicular block. These EKGs are of documentation of intermittent complete right bundle and complete left bundle as well as episodes of 2:1 AV block and Mobitz type 2 heart block are classical indication for permanent pacemaker implantation. This would be discussed with the family members. 2. Multiple long runs of polymorphic ventricular tachycardia in torsade. These are likely induced by bradycardia in the setting of QT prolonging agents as the patient is on Zyprexa as well as Haldol and Levaquin that all can prolong the QT. All these agents will be discontinued. We will watch the patient on telemetry. If all these episodes of polymorphic VT resolve off of her precipitating agents in the setting of normal left ventricular systolic function and no prior myocardial infarction or coronary artery disease, she would need permanent pacemaker implantation. Hopefully with increasing the heart rate with permanent pacemaker would eliminate this polymorphic ventricular tachycardias after which a nuclear stress test can be done to make sure these are not ischemia related. However, the other option would be doing cardiac catheterization to make sure she does not have coronary artery disease, but it is unlikely in this patient with normal ejection fraction and no coronary artery disease and no chest pain. The other issue is that we cannot put her on any antiarrhythmics like amiodarone as the patient already has intermittent complete heart block with profound bradycardia. 3. Chronic obstructive pulmonary disease exacerbation and asymptomatic bacteriuria. I will discuss the case with Dr. Reyes for discontinuation of Levaquin. 4. Dementia with behavioral issues. Thank you very much, Dr. Molina, for allowing me to participate in the care of this patient. Please do not hesitate to contact me for any questions regarding my evaluation. The case was discussed in detail with Dr. Dontrell Tubbs. Dontrell Lilly M.D. DR: CADY JOB#: [id number] CC:
[2017-08-02 20:00] VITALS: BP 140/78
[2017-08-02] MEDS: Losartan 50mg tab ORAL SCH (20:38)
[2017-08-02] MEDS: Miralax 17gm pkt ORAL SCH (20:38)
[2017-08-03] VITALS (7 sets, daily range): BP systolic 127–175; BP diastolic 68–82
[2017-08-03 05:12] LABS: BASOPHILS % (AUTO) 1.9 % (0.0-2.0); EOSINOPHILS % (AUTO) 1.6 % (0.0-3.0); HEMATOCRIT 36.4 % (37.0-47.0); HEMOGLOBIN 11.8 G/DL (12.0-16.0); LYMPHOCYTES % (AUTO) 26.2 % (20.0-45.0); MEAN CORPUSCULAR VOLUME 90 FL (80-99); MONOCYTES % (AUTO) 6.7 % (1.0-10.0); NEUTROPHILS % (AUTO) 63.6 % (45.0-75.0); PLATELET COUNT 229 K/UL (150-450); RED BLOOD COUNT 4.06 M/UL (4.20-5.40); RED CELL DISTRIBUTION WIDTH 13.9 % (11.6-14.8); WHITE BLOOD COUNT 8.4 K/UL (4.8-10.8)
[2017-08-03 05:53] LABS: ANION GAP 9 mmol/L (5-15); BLOOD UREA NITROGEN 31 mg/dL (7-18); CALCIUM 8.9 MG/DL (8.5-10.1); CARBON DIOXIDE 27 MMOL/L (21-32); CHLORIDE 105 MMOL/L (98-107); CREATININE 1.5 MG/DL (0.55-1.30); SODIUM 141 MMOL/L (136-145)
[2017-08-03] MEDS: NovoLOG Insulin Flexpen SUBQ SCH ×4 (06:26→20:26)
--- NOTE | 2017-08-03 07:19 | Pulmonology Progress Note ---
Assessment/Plan Assessment/Plan ASSESSMENT Acute asthma exacerbation AV shireen disease with associated LBBB, progressing to complete heart block Moderate pulmonary hypertension Hypertension Diabetes mellitus Dementia with behavioral issues Fecal impaction Anemia Barcenas Esophagitis GERD Asymptomatic bacteriuria PLAN OF CARE [facility] cardiology closely follows, recommended pacemaker implantation for AV nodule disease progressing to complete heart block Echocardiogram with pEF 60-65%, mild left ventricular hypertrophy, right ventricular systolic pressure of 43 consistent with moderate pulmonary hypertension Supplemental oxygen as needed to keep pulse oximetry above 92% Pulmonary toilet with HHN and CPT IV steroids and taper further Trial of theophylline Empiric antibiotic, sputum culture if able Chest x-ray -no evidence of pneumonia GI follows PPI twice a day and Carafate, stool OB negative, monitor HH with goal to keep hemoglobin above 8 Bowel regimen urine culture + Escherichia coli, patient had no urinary complaints per ID -asymptomatic bacteriuria, no need to treat Blood pressure management with the ARB and optimize further as needed, one4 dose of Hydralazine for SBP above 170 Blood sugar management with sliding scale insulin PT/OT Psychiatrist seen and evaluated, per psychiatrist patient lacks capacity to make an informed decision 500 cc IVF, monitor renal parameters,m electrolytes, avoid nephrotoxins, dc IV steroids, fast tapering with oral Prednisone next to kin should make a decision ; patient needs pacemaker, awaiting for granddaughter visit later today to consent for procedure case discussed and evaluated by supervising physician Subjective Allergies: Coded Allergies: CODEINE (Verified Allergy, Unknown, 07/29/17) EGG (Verified Allergy, Unknown, 07/29/17) LISINOPRIL (Verified Allergy, Unknown, 07/29/17) MILK (Verified Allergy, Unknown, 07/29/17) PENICILLINS (Verified Allergy, Unknown, 07/29/17) Subjective denies chest pain, SOB, dizziness transferred to [facility] for another episode of compete heart block currently in SR creat up to 1.5 Objective Last 24 Hour Vital Signs Date Time Temp Pulse Resp B/P (MAP) Pulse Ox O2 Delivery O2 Flow Rate FiO2 08/03/17 04:00 63 08/03/17 04:00 98.1 66 18 129/68 98 98.1 08/03/17 00:00 98.8 60 19 136/79 98 98.8 08/03/17 00:00 65 08/02/17 20:38 140/76 08/02/17 20:00 98.9 74 18 140/78 96 98.9 08/02/17 20:00 74 08/02/17 19:40 47 19 Room Air 21 08/02/17 16:00 53 08/02/17 16:00 97.3 44 19 127/65 96 97.3 08/02/17 12:00 97.6 63 19 164/68 97 97.6 08/02/17 12:00 59 08/02/17 08:11 70 20 Room Air 21 08/02/17 08:00 72 08/02/17 08:00 97.9 72 18 169/63 98 97.9 Intake and Output 08/02/17 08/03/17 19:00 07:00 Intake Total 350 ml 120 ml Balance 350 ml 120 ml Intake Oral 250 ml 120 ml IV Total 100 ml # Voids 1 3 # Bowel Movements 1 General Appearance: no acute distress HEENT: normocephalic, atraumatic, anicteric, mucous membranes moist Respiratory/Chest: lungs clear, no respiratory distress, no accessory muscle use Cardiovascular: normal rate - SR Abdomen: normal bowel sounds, soft, non tender Extremities: no edema Neurologic/Psychiatric: alert, responsive Musculoskeletal: atrophy - BLE Laboratory Tests 08/02/17 08:15: White Blood Count 7.4, Red Blood Count 4.45, Hemoglobin 12.8, Hematocrit 40.3, Mean Corpuscular Volume 91, Mean Corpuscular Hemoglobin 28.8, Mean Corpuscular Hemoglobin Concent 31.8L, Red Cell Distribution Width 13.6, Platelet Count 255, Mean Platelet Volume 9.5, Neutrophils (%) (Auto) 70.0, Lymphocytes (%) (Auto) 22.8, Monocytes (%) (Auto) 5.5, Eosinophils (%) (Auto) 0.5, Basophils (%) (Auto ) 1.2, Sodium Level 141, Potassium Level 4.4, Chloride Level 105, Carbon Dioxide Level 29, Anion Gap 8, Blood Urea Nitrogen 29H, Creatinine 1.5H, Estimat Glomerular Filtration Rate , Glucose Level 143H, Calcium Level 9.2 08/02/17 17:40: Magnesium Level 2.2 08/03/17 03:55: White Blood Count 8.4, Red Blood Count 4.06L, Hemoglobin 11.8L, Hematocrit 36.4L , Mean Corpuscular Volume 90, Mean Corpuscular Hemoglobin 29.1, Mean Corpuscular Hemoglobin Concent 32.4, Red Cell Distribution Width 13.9, Platelet Count 229, Mean Platelet Volume 10.4H, Neutrophils (%) (Auto) 63.6, Lymphocytes (%) (Auto) 26.2, Monocytes (%) (Auto) 6.7, Eosinophils (%) (Auto) 1.6, Basophils (%) (Auto) 1.9, Sodium Level 141, Potassium Level 4.0, Chloride Level 105, Carbon Dioxide Level 27, Anion Gap 9, Blood Urea Nitrogen 31H, Creatinine 1.5H, Estimat Glomerular Filtration Rate , Glucose Level 132H, Calcium Level 8.9 Current Medications Medications (Trade) Dose Ordered Sig/Edgar Route PRN Reason Start Time Stop Time Status Last Admin Dose Admin Albuterol/ Ipratropium (Albuterol/ Ipratropium) 3 ml Q4H PRN HHN dyspnea 08/02/17 17:26 08/07/17 17:25 Baclofen (Lioresal) 5 mg THREE TIMES A DAY ORAL 08/02/17 18:00 08/28/17 12:59 Dextrose (Dextrose 50%) 25 ml STAT PRN IV Hypoglycemia 08/02/17 17:26 09/01/17 17:25 Dextrose (Dextrose 50%) 50 ml STAT PRN IV Hypoglycemia 08/02/17 17:26 09/01/17 17:25 Docusate Sodium (Colace) 100 mg THREE TIMES A DAY ORAL 08/02/17 18:00 08/28/17 17:59 08/02/17 18:28 Gabapentin (Neurontin) 300 mg THREE TIMES A DAY ORAL 08/02/17 18:00 08/28/17 12:59 Heparin Sodium (Porcine) (Heparin 5000 units/ml) 5,000 units EVERY 12 HOURS SUBQ 08/02/17 21:00 08/28/17 10:59 08/02/17 20:37 Insulin Aspart (NovoLOG) BEFORE MEALS AND HS SUBQ 08/02/17 21:00 08/29/17 11:29 08/03/17 06:26 Ketorolac Tromethamine (Toradol 30mg) 30 mg Q8H PRN IV moderate pain 4-6 08/02/17 17:33 08/03/17 17:32 Lorazepam (Ativan 2mg/ml 1ml) 0.5 mg Q4H PRN IV For Anxiety 08/02/17 17:29 08/05/17 17:28 Losartan Potassium (Cozaar) 100 mg BEDTIME ORAL 08/02/17 21:00 08/28/17 20:59 08/02/17 20:38 Methylprednisolone Sodium Succinate (Solu-MEDROL) 60 mg DAILY IVP 08/03/17 09:00 09/01/17 08:59 Mineral Oil (Fleet's Mineral Oil Enema) 133 ml DAILYPRN PRN RECTAL CONSTIPATION 08/02/17 17:30 09/01/17 17:29 Nitroglycerin (Ntg) 0.4 mg Q5M X 3 DOSES PRN SL Prn Chest Pain 08/02/17 17:30 08/28/17 08:59 Ondansetron HCl (Zofran) 4 mg Q6H PRN IVP Nausea & Vomiting 08/02/17 17:30 08/28/17 17:29 Pantoprazole (Protonix) 40 mg BID ORAL 08/02/17 18:00 08/28/17 11:14 08/02/17 18:28 Polyethylene Glycol (Miralax) 17 gm BEDTIME ORAL 08/02/17 21:00 08/28/17 20:59 08/02/17 20:38 Sucralfate (Carafate) 1 gm THREE TIMES A DAY ORAL 08/02/17 18:00 08/28/17 12:59 08/02/17 18:28 Temazepam (Restoril) 15 mg HSPRN PRN ORAL Insomnia 08/02/17 21:00 08/09/17 20:59 Theophylline (Sean-Dur) 100 mg EVERY 12 HOURS ORAL 08/02/17 21:00 08/28/17 11:14 08/02/17 20:37 Trinh Gonsalves NP August 03, 2017 07:19
--- NOTE | 2017-08-03 08:43 | General Progress Note ---
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 - mild rectal fecal impaction. - No definite acute process otherwise. - Diverticulosis. No evidence of diverticulitis - Fatty liver - Multiple well circumscribed renal masses. anemia work up reviewed fu cardiology recs for possible pacemaker, pending for Saturday if family agrees okay for DC per GI standpoint regular diet cont ppi BID + carafate OB stool r/o GI bleed pending monitor H&H, prn transfusions bowel regime >> colace + miralax, mineral oil enema prn ppi fu labs Subjective ROS Limited/Unobtainable: Yes Allergies: Coded Allergies: CODEINE (Verified Allergy, Unknown, 07/29/17) EGG (Verified Allergy, Unknown, 07/29/17) LISINOPRIL (Verified Allergy, Unknown, 07/29/17) MILK (Verified Allergy, Unknown, 07/29/17) PENICILLINS (Verified Allergy, Unknown, 07/29/17) Subjective had a good BM refused stool softener Objective Last 24 Hour Vital Signs Date Time Temp Pulse Resp B/P (MAP) Pulse Ox O2 Delivery O2 Flow Rate FiO2 08/03/17 08:13 56 20 Room Air 21 08/03/17 04:00 63 08/03/17 04:00 98.1 66 18 129/68 98 98.1 08/03/17 00:00 98.8 60 19 136/79 98 98.8 08/03/17 00:00 65 08/02/17 20:38 140/76 08/02/17 20:00 98.9 74 18 140/78 96 98.9 08/02/17 20:00 74 08/02/17 19:40 47 19 Room Air 21 08/02/17 16:00 53 08/02/17 16:00 97.3 44 19 127/65 96 97.3 08/02/17 12:00 97.6 63 19 164/68 97 97.6 08/02/17 12:00 59 Intake and Output 08/02/17 08/03/17 19:00 07:00 Intake Total 350 ml 120 ml Balance 350 ml 120 ml Intake Oral 250 ml 120 ml IV Total 100 ml # Voids 1 3 # Bowel Movements 1 Laboratory Tests 08/02/17 17:40: Magnesium Level 2.2 08/03/17 03:55: White Blood Count 8.4, Red Blood Count 4.06L, Hemoglobin 11.8L, Hematocrit 36.4L , Mean Corpuscular Volume 90, Mean Corpuscular Hemoglobin 29.1, Mean Corpuscular Hemoglobin Concent 32.4, Red Cell Distribution Width 13.9, Platelet Count 229, Mean Platelet Volume 10.4H, Neutrophils (%) (Auto) 63.6, Lymphocytes (%) (Auto) 26.2, Monocytes (%) (Auto) 6.7, Eosinophils (%) (Auto) 1.6, Basophils (%) (Auto) 1.9, Sodium Level 141, Potassium Level 4.0, Chloride Level 105, Carbon Dioxide Level 27, Anion Gap 9, Blood Urea Nitrogen 31H, Creatinine 1.5H, Estimat Glomerular Filtration Rate , Glucose Level 132H, Calcium Level 8.9 Height (Feet): 5 Height (Inches): 5.00 Weight (Pounds): 193 General Appearance: no apparent distress EENT: normal ENT inspection Neck: supple Cardiovascular: normal rate Respiratory/Chest: decreased breath sounds Abdomen: normal bowel sounds, non tender, soft Extremities: non-tender Cam Chao MD August 03, 2017 08:43
[2017-08-03] MEDS: Docusate 100mg cap ORAL SCH ×2 (08:46→20:25)
[2017-08-03] MEDS ORDERED: Solu-MEDROL 40mg Inj IVP SCH (09:00)
[2017-08-03] MEDS: Sucralfate 1gm tab ORAL SCH ×3 (09:13→17:11)
[2017-08-03] MEDS: Theophylline ER 100mg ORAL SCH ×2 (09:13→20:24)
[2017-08-03] MEDS: Heparin 5000 units/ml inj SUBQ SCH ×2 (09:15→20:27)
--- NOTE | 2017-08-03 11:09 | General Progress Note ---
Assessment/Plan Problem List: (1) Hypoxia ICD Codes: R09.02 - Hypoxemia SNOMED: 616956376 (2) Diabetes ICD Codes: E11.9 - Type 2 diabetes mellitus without complications SNOMED: 84542004 (3) Bradycardia ICD Codes: R00.1 - Bradycardia, unspecified SNOMED: 43982833 (4) Bronchospasm ICD Codes: J98.01 - Acute bronchospasm SNOMED: 4498411 (5) GERD (gastroesophageal reflux disease) ICD Codes: K21.9 - Gastro-esophageal reflux disease without esophagitis SNOMED: 037178671 Status: unchanged Assessment/Plan o2 pulm tx abx ot pt diet cbc bmp am may need pacer Subjective Constitutional: Reports: weakness Allergies: Coded Allergies: CODEINE (Verified Allergy, Unknown, 07/29/17) EGG (Verified Allergy, Unknown, 07/29/17) LISINOPRIL (Verified Allergy, Unknown, 07/29/17) MILK (Verified Allergy, Unknown, 07/29/17) PENICILLINS (Verified Allergy, Unknown, 07/29/17) All Systems: reviewed and negative except above Subjective sleepy calm in bed Objective Last 24 Hour Vital Signs Date Time Temp Pulse Resp B/P (MAP) Pulse Ox O2 Delivery O2 Flow Rate FiO2 08/03/17 09:16 175/82 08/03/17 08:13 56 20 Room Air 21 08/03/17 08:00 68 08/03/17 08:00 97.0 66 18 175/82 97 Room Air 97.0 08/03/17 04:00 63 08/03/17 04:00 98.1 66 18 129/68 98 98.1 08/03/17 00:00 98.8 60 19 136/79 98 98.8 08/03/17 00:00 65 08/02/17 20:38 140/76 08/02/17 20:00 98.9 74 18 140/78 96 98.9 08/02/17 20:00 74 08/02/17 19:40 47 19 Room Air 21 08/02/17 16:00 53 08/02/17 16:00 97.3 44 19 127/65 96 97.3 08/02/17 12:00 97.6 63 19 164/68 97 97.6 08/02/17 12:00 59 Intake and Output 08/02/17 08/03/17 19:00 07:00 Intake Total 350 ml 120 ml Balance 350 ml 120 ml Intake Oral 250 ml 120 ml IV Total 100 ml # Voids 1 3 # Bowel Movements 1 Laboratory Tests 08/02/17 17:40: Magnesium Level 2.2 08/03/17 03:55: White Blood Count 8.4, Red Blood Count 4.06L, Hemoglobin 11.8L, Hematocrit 36.4L , Mean Corpuscular Volume 90, Mean Corpuscular Hemoglobin 29.1, Mean Corpuscular Hemoglobin Concent 32.4, Red Cell Distribution Width 13.9, Platelet Count 229, Mean Platelet Volume 10.4H, Neutrophils (%) (Auto) 63.6, Lymphocytes (%) (Auto) 26.2, Monocytes (%) (Auto) 6.7, Eosinophils (%) (Auto) 1.6, Basophils (%) (Auto) 1.9, Sodium Level 141, Potassium Level 4.0, Chloride Level 105, Carbon Dioxide Level 27, Anion Gap 9, Blood Urea Nitrogen 31H, Creatinine 1.5H, Estimat Glomerular Filtration Rate , Glucose Level 132H, Calcium Level 8.9 Height (Feet): 5 Height (Inches): 5.00 Weight (Pounds): 193 General Appearance: lethargic EENT: normal ENT inspection Neck: normal alignment Cardiovascular: normal peripheral pulses, normal rate, regular rhythm Respiratory/Chest: chest wall non-tender, decreased breath sounds Abdomen: normal bowel sounds, non tender, soft Extremities: normal inspection Edema: no edema noted Arm (L), no edema noted Arm (R), no edema noted Leg (L), no edema noted Leg (R), no edema noted Pedal (L), no edema noted Pedal (R), no edema noted Generalized Neurologic: motor weakness Skin: normal pigmentation, warm/dry Anderson Molina DO August 03, 2017 11:09
[2017-08-03] MEDS ORDERED: Sodium Chloride 500ML 550 ML IV ONE (11:30)
[2017-08-03] MEDS ORDERED: Sodium Chloride 500ML 550 ML IV SCH (11:30)
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
--- NOTE | 2017-08-03 14:40 | Infectious Diseases Prog Note ---
Assessment/Plan Assessment/Plan ASSESSMENT: The patient is an 87-year-old female with, COPD exacerbation, no Pna Chest x-ray, NAPD. UCx : E. Coli asymptomatic bacteriuria. 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 Osteoarthritis. Hyperlipidemia. GERD/Barcenas esophagitis. History of asthma PLAN: monitor pt off of AB Rx 08/01 SP Levaquin day # Monitor CBC. Monitor BMP Cardio fup requires pacemaker implantation, : probable on Saturday Subjective Allergies: Coded Allergies: CODEINE (Verified Allergy, Unknown, 07/29/17) EGG (Verified Allergy, Unknown, 07/29/17) LISINOPRIL (Verified Allergy, Unknown, 07/29/17) MILK (Verified Allergy, Unknown, 07/29/17) PENICILLINS (Verified Allergy, Unknown, 07/29/17) Subjective Afebrile comfortable Objective Vital Signs Last 24 Hour Vital Signs Date Time Temp Pulse Resp B/P (MAP) Pulse Ox O2 Delivery O2 Flow Rate FiO2 08/03/17 12:00 98.4 63 18 130/80 100 Room Air 98.4 08/03/17 11:30 62 08/03/17 10:30 145/81 08/03/17 09:16 175/82 08/03/17 08:13 56 20 Room Air 21 08/03/17 08:00 68 08/03/17 08:00 97.0 66 18 175/82 97 Room Air 97.0 08/03/17 04:00 63 08/03/17 04:00 98.1 66 18 129/68 98 98.1 08/03/17 00:00 98.8 60 19 136/79 98 98.8 08/03/17 00:00 65 08/02/17 20:38 140/76 08/02/17 20:00 98.9 74 18 140/78 96 98.9 08/02/17 20:00 74 08/02/17 19:40 47 19 Room Air 21 08/02/17 16:00 53 08/02/17 16:00 97.3 44 19 127/65 96 97.3 Height (Feet): 5 Height (Inches): 5.00 Weight (Pounds): 193 HEENT: anicteric Respiratory/Chest: no accessory muscle use Cardiovascular: no gallop/murmur Abdomen: no organomegaly Laboratory Tests Test 08/02/17 17:40 08/03/17 03:55 Magnesium Level 2.2 MG/DL (1.8-2.4) White Blood Count 8.4 K/UL (4.8-10.8) Red Blood Count 4.06 M/UL (4.20-5.40) L Hemoglobin 11.8 G/DL (12.0-16.0) L Hematocrit 36.4 % (37.0-47.0) L Mean Corpuscular Volume 90 FL (80-99) Mean Corpuscular Hemoglobin 29.1 PG (27.0-31.0) Mean Corpuscular Hemoglobin Concent 32.4 G/DL (32.0-36.0) Red Cell Distribution Width 13.9 % (11.6-14.8) Platelet Count 229 K/UL (150-450) Mean Platelet Volume 10.4 FL (6.5-10.1) H Neutrophils (%) (Auto) 63.6 % (45.0-75.0) Lymphocytes (%) (Auto) 26.2 % (20.0-45.0) Monocytes (%) (Auto) 6.7 % (1.0-10.0) Eosinophils (%) (Auto) 1.6 % (0.0-3.0) Basophils (%) (Auto) 1.9 % (0.0-2.0) Sodium Level 141 MMOL/L (136-145) Potassium Level 4.0 MMOL/L (3.5-5.1) Chloride Level 105 MMOL/L (98-107) Carbon Dioxide Level 27 MMOL/L (21-32) Anion Gap 9 mmol/L (5-15) Blood Urea Nitrogen 31 mg/dL (7-18) H Creatinine 1.5 MG/DL (0.55-1.30) H Estimat Glomerular Filtration Rate mL/min (>60) Glucose Level 132 MG/DL (74-106) H Calcium Level 8.9 MG/DL (8.5-10.1) Current Medications Medications (Trade) Dose Ordered Sig/Edgar Route PRN Reason Start Time Stop Time Status Last Admin Dose Admin Albuterol/ Ipratropium (Albuterol/ Ipratropium) 3 ml Q4H PRN HHN dyspnea 08/02/17 17:26 08/07/17 17:25 Baclofen (Lioresal) 5 mg THREE TIMES A DAY ORAL 08/02/17 18:00 08/28/17 12:59 Dextrose (Dextrose 50%) 25 ml STAT PRN IV Hypoglycemia 08/02/17 17:26 09/01/17 17:25 Dextrose (Dextrose 50%) 50 ml STAT PRN IV Hypoglycemia 08/02/17 17:26 09/01/17 17:25 Docusate Sodium (Colace) 100 mg EVERY 12 HOURS ORAL 08/03/17 21:00 08/28/17 17:59 Gabapentin (Neurontin) 300 mg THREE TIMES A DAY ORAL 08/02/17 18:00 08/28/17 12:59 Heparin Sodium (Porcine) (Heparin 5000 units/ml) 5,000 units EVERY 12 HOURS SUBQ 08/02/17 21:00 08/28/17 10:59 08/03/17 09:15 Insulin Aspart (NovoLOG) BEFORE MEALS AND HS SUBQ 08/02/17 21:00 08/29/17 11:29 08/03/17 12:15 Ketorolac Tromethamine (Toradol 30mg) 30 mg Q8H PRN IV moderate pain 4-6 08/02/17 17:33 08/03/17 17:32 Lorazepam (Ativan 2mg/ml 1ml) 0.5 mg Q4H PRN IV For Anxiety 08/02/17 17:29 08/05/17 17:28 Losartan Potassium (Cozaar) 100 mg BEDTIME ORAL 08/02/17 21:00 08/28/17 20:59 08/02/17 20:38 Mineral Oil (Fleet's Mineral Oil Enema) 133 ml DAILYPRN PRN RECTAL CONSTIPATION 08/02/17 17:30 09/01/17 17:29 Nitroglycerin (Ntg) 0.4 mg Q5M X 3 DOSES PRN SL Prn Chest Pain 08/02/17 17:30 08/28/17 08:59 Ondansetron HCl (Zofran) 4 mg Q6H PRN IVP Nausea & Vomiting 08/02/17 17:30 08/28/17 17:29 Pantoprazole (Protonix) 40 mg BID ORAL 08/02/17 18:00 08/28/17 11:14 08/03/17 09:13 Polyethylene Glycol (Miralax) 17 gm BEDTIME ORAL 08/02/17 21:00 08/28/17 20:59 08/02/17 20:38 Prednisone (predniSONE) 60 mg Taper DAILY ORAL 08/04/17 09:00 08/10/17 08:59 Sodium Chloride 550 ml @ 75 mls/hr Q7H20M ONCE IV 08/03/17 11:30 08/03/17 18:49 08/03/17 12:14 Sucralfate (Carafate) 1 gm THREE TIMES A DAY ORAL 08/02/17 18:00 08/28/17 12:59 08/03/17 12:14 Temazepam (Restoril) 15 mg HSPRN PRN ORAL Insomnia 08/02/17 21:00 08/09/17 20:59 Theophylline (Sean-Dur) 100 mg EVERY 12 HOURS ORAL 08/02/17 21:00 08/28/17 11:14 08/03/17 09:13 Shaggy Reyes MD August 03, 2017 14:40
--- NOTE | 2017-08-03 15:15 | Cardiac Electrophysiology PN ---
Assessment/Plan Assessment/Plan 1. Episode of intermittent complete heart block. The patient at baseline has sinus rhythm with complete left bundle-branch block as well as right bundle- branch block and left anterior fascicular block. These EKGs are of documentation of intermittent complete right bundle and complete left bundle as well as episodes of 2:1 AV block and Mobitz type 2 heart block are classical indication for permanent pacemaker implantation. Awaiting consent for PPM. 2. 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 These are likely induced by bradycardia in the setting of QT prolonging agents as the patient is on Zyprexa as well as Haldol and Levaquin that all can prolong the QT. All these agents were discontinued. We will watch the patient on telemetry. If all these episodes of polymorphic VT resolve off of her precipitating agents in the setting of normal left ventricular systolic function and no prior myocardial infarction or coronary artery disease, she would need permanent pacemaker implantation. No further polymorphic ventricular tachycardias overnight. The other issue is that we cannot put her on any antiarrhythmics like amiodarone as the patient already has intermittent complete heart block with profound bradycardia. 3. Chronic obstructive pulmonary disease exacerbation and asymptomatic bacteriuria.. Levoquin DCed no need for further Abx per Dr pizano. 4. Dementia with behavioral issues.Off All psychoactive meds now. DW Eric Dover and both daughters and RN Subjective Subjective Feeling better.No further PMVT or Torsades. ECG from yesterday QT 700ms?! Objective Last 24 Hour Vital Signs Date Time Temp Pulse Resp B/P (MAP) Pulse Ox O2 Delivery O2 Flow Rate FiO2 08/03/17 12:00 98.4 63 18 130/80 100 Room Air 98.4 08/03/17 11:30 62 08/03/17 10:30 145/81 08/03/17 09:16 175/82 08/03/17 08:13 56 20 Room Air 21 08/03/17 08:00 68 08/03/17 08:00 97.0 66 18 175/82 97 Room Air 97.0 08/03/17 04:00 63 08/03/17 04:00 98.1 66 18 129/68 98 98.1 08/03/17 00:00 98.8 60 19 136/79 98 98.8 08/03/17 00:00 65 08/02/17 20:38 140/76 08/02/17 20:00 98.9 74 18 140/78 96 98.9 08/02/17 20:00 74 08/02/17 19:40 47 19 Room Air 21 08/02/17 16:00 53 08/02/17 16:00 97.3 44 19 127/65 96 97.3 Intake and Output 08/02/17 08/03/17 19:00 07:00 Intake Total 350 ml 120 ml Balance 350 ml 120 ml Intake Oral 250 ml 120 ml IV Total 100 ml # Voids 1 3 # Bowel Movements 1 Laboratory Tests Test 08/02/17 17:40 08/03/17 03:55 Magnesium Level 2.2 MG/DL (1.8-2.4) White Blood Count 8.4 K/UL (4.8-10.8) Red Blood Count 4.06 M/UL (4.20-5.40) L Hemoglobin 11.8 G/DL (12.0-16.0) L Hematocrit 36.4 % (37.0-47.0) L Mean Corpuscular Volume 90 FL (80-99) Mean Corpuscular Hemoglobin 29.1 PG (27.0-31.0) Mean Corpuscular Hemoglobin Concent 32.4 G/DL (32.0-36.0) Red Cell Distribution Width 13.9 % (11.6-14.8) Platelet Count 229 K/UL (150-450) Mean Platelet Volume 10.4 FL (6.5-10.1) H Neutrophils (%) (Auto) 63.6 % (45.0-75.0) Lymphocytes (%) (Auto) 26.2 % (20.0-45.0) Monocytes (%) (Auto) 6.7 % (1.0-10.0) Eosinophils (%) (Auto) 1.6 % (0.0-3.0) Basophils (%) (Auto) 1.9 % (0.0-2.0) Sodium Level 141 MMOL/L (136-145) Potassium Level 4.0 MMOL/L (3.5-5.1) Chloride Level 105 MMOL/L (98-107) Carbon Dioxide Level 27 MMOL/L (21-32) Anion Gap 9 mmol/L (5-15) Blood Urea Nitrogen 31 mg/dL (7-18) H Creatinine 1.5 MG/DL (0.55-1.30) H Estimat Glomerular Filtration Rate mL/min (>60) Glucose Level 132 MG/DL (74-106) H Calcium Level 8.9 MG/DL (8.5-10.1) Objective HEAD AND NECK: Shows no JVD or carotid bruit. LUNGS: Clear. CARDIOVASCULAR: Shows regular S1 and S2 with no gallop or murmur. ABDOMEN: Soft. EXTREMITIES: No pitting edema. Dontrell Lilly MD August 03, 2017 15:15
[2017-08-03] MEDS ORDERED: NS 500ML ONE (15:32)
[2017-08-03] MEDS: Losartan 50mg tab ORAL SCH (20:25)
[2017-08-03] MEDS: Miralax 17gm pkt ORAL SCH (20:27)
--- NOTE | 2017-08-03 22:58 | General Progress Note ---
Assessment/Plan Assessment/Plan the pt lacks capacity to make decisions dementia with behavioral issues. next of kin should make decision Subjective Date patient seen: August 03, 2017 Neurologic/Psychiatric: Reports: anxiety, depressed Allergies: Coded Allergies: CODEINE (Verified Allergy, Unknown, 07/29/17) EGG (Verified Allergy, Unknown, 07/29/17) LISINOPRIL (Verified Allergy, Unknown, 07/29/17) MILK (Verified Allergy, Unknown, 07/29/17) PENICILLINS (Verified Allergy, Unknown, 07/29/17) Subjective started to take meds and more cooperative. Objective Last 24 Hour Vital Signs Date Time Temp Pulse Resp B/P (MAP) Pulse Ox O2 Delivery O2 Flow Rate FiO2 08/03/17 20:25 140/76 08/03/17 20:00 98.7 80 18 140/72 95 Room Air 98.7 08/03/17 20:00 66 08/03/17 18:51 53 20 Room Air 21 08/03/17 16:00 98.5 89 18 127/76 98 Room Air 98.5 08/03/17 16:00 63 08/03/17 12:00 98.4 63 18 130/80 100 Room Air 98.4 08/03/17 11:30 62 08/03/17 10:30 145/81 08/03/17 09:16 175/82 08/03/17 08:13 56 20 Room Air 21 08/03/17 08:00 68 08/03/17 08:00 97.0 66 18 175/82 97 Room Air 97.0 08/03/17 04:00 63 08/03/17 04:00 98.1 66 18 129/68 98 98.1 08/03/17 00:00 98.8 60 19 136/79 98 98.8 08/03/17 00:00 65 Intake and Output 08/02/17 08/03/17 19:00 07:00 Intake Total 350 ml 120 ml Balance 350 ml 120 ml Intake Oral 250 ml 120 ml IV Total 100 ml # Voids 1 3 # Bowel Movements 1 Laboratory Tests 08/03/17 03:55: White Blood Count 8.4, Red Blood Count 4.06L, Hemoglobin 11.8L, Hematocrit 36.4L , Mean Corpuscular Volume 90, Mean Corpuscular Hemoglobin 29.1, Mean Corpuscular Hemoglobin Concent 32.4, Red Cell Distribution Width 13.9, Platelet Count 229, Mean Platelet Volume 10.4H, Neutrophils (%) (Auto) 63.6, Lymphocytes (%) (Auto) 26.2, Monocytes (%) (Auto) 6.7, Eosinophils (%) (Auto) 1.6, Basophils (%) (Auto) 1.9, Sodium Level 141, Potassium Level 4.0, Chloride Level 105, Carbon Dioxide Level 27, Anion Gap 9, Blood Urea Nitrogen 31H, Creatinine 1.5H, Estimat Glomerular Filtration Rate , Glucose Level 132H, Calcium Level 8.9 Height (Feet): 5 Height (Inches): 5.00 Weight (Pounds): 193 El Marcial M.D. August 03, 2017 22:58
[2017-08-04] VITALS (7 sets, daily range): BP systolic 138–190; BP diastolic 71–102
[2017-08-04 05:47] LABS: BASOPHILS % (AUTO) 0.8 % (0.0-2.0); EOSINOPHILS % (AUTO) 0.9 % (0.0-3.0); HEMATOCRIT 39.7 % (37.0-47.0); HEMOGLOBIN 13.1 G/DL (12.0-16.0); LYMPHOCYTES % (AUTO) 26.1 % (20.0-45.0); MEAN CORPUSCULAR VOLUME 89 FL (80-99); MONOCYTES % (AUTO) 6.4 % (1.0-10.0); NEUTROPHILS % (AUTO) 65.8 % (45.0-75.0); PLATELET COUNT 267 K/UL (150-450); RED BLOOD COUNT 4.44 M/UL (4.20-5.40); RED CELL DISTRIBUTION WIDTH 13.7 % (11.6-14.8); WHITE BLOOD COUNT 9.6 K/UL (4.8-10.8)
[2017-08-04 06:02] LABS: ANION GAP 10 mmol/L (5-15); BLOOD UREA NITROGEN 27 mg/dL (7-18); CALCIUM 9.3 MG/DL (8.5-10.1); CARBON DIOXIDE 25 MMOL/L (21-32); CHLORIDE 105 MMOL/L (98-107); CREATININE 1.3 MG/DL (0.55-1.30); POTASSIUM 3.9 MMOL/L (3.5-5.1); SODIUM 140 MMOL/L (136-145)
[2017-08-04] MEDS: NovoLOG Insulin Flexpen SUBQ SCH ×4 (06:30→21:53)
[2017-08-04] MEDS ORDERED: HydrALAZINE 50mg tab ORAL PRN (08:00)
--- NOTE | 2017-08-04 08:04 | Pulmonology Progress Note ---
Assessment/Plan Assessment/Plan ASSESSMENT Acute asthma exacerbation AV shireen disease with associated LBBB, progressing to complete heart block NSVT Tachy-dannie arrhythmias Moderate pulmonary hypertension Hypertension Diabetes mellitus Dementia with behavioral issues Fecal impaction Anemia Barcenas Esophagitis GERD Asymptomatic bacteriuria [facility] cardiology closely follows, recommended pacemaker implantation for AV nodule disease progressing to complete heart block Echocardiogram with pEF 60-65%, mild left ventricular hypertrophy, right ventricular systolic pressure of 43 consistent with moderate pulmonary hypertension Supplemental oxygen as needed to keep pulse oximetry above 92% Pulmonary toilet with HHN and CPT change to oral steroids with tapering Trial of theophylline s/p empiric antibiotic, Chest x-ray -no evidence of pneumonia GI follows PPI twice a day and Carafate, stool OB negative, monitor HH with goal to keep hemoglobin above 8 Bowel regimen urine culture + Escherichia coli, patient had no urinary complaints per ID -asymptomatic bacteriuria, no need to treat Blood pressure management with the ARB and optimize further as needed, one4 dose of Hydralazine for SBP above 170 Blood sugar management with sliding scale insulin PT/OT Psychiatrist seen and evaluated, per psychiatrist patient lacks capacity to make an informed decision 500 cc IVF, monitor renal parameters,m electrolytes, avoid nephrotoxins, dc IV steroids, fast tapering with oral Prednisone next to kin should make a decision ; patient needs pacemaker, awaiting for consent for procedure from family case discussed and evaluated by supervising physician Subjective Allergies: Coded Allergies: CODEINE (Verified Allergy, Unknown, 07/29/17) EGG (Verified Allergy, Unknown, 07/29/17) LISINOPRIL (Verified Allergy, Unknown, 07/29/17) MILK (Verified Allergy, Unknown, 07/29/17) PENICILLINS (Verified Allergy, Unknown, 07/29/17) Subjective denies chest pain, SOB, dizziness, palpitations last night episode of 3 rd degree intermittent heart block, currently tachy while was on tele episodes of NSVT Objective Last 24 Hour Vital Signs Date Time Temp Pulse Resp B/P (MAP) Pulse Ox O2 Delivery O2 Flow Rate FiO2 08/04/17 06:45 75 18 Room Air 21 08/04/17 04:00 97.9 73 20 190/92 98 Room Air 97.9 08/04/17 04:00 75 08/04/17 00:00 98.6 78 18 146/85 95 Room Air 98.6 08/04/17 00:00 71 08/03/17 20:25 140/76 08/03/17 20:00 98.7 80 18 140/72 95 Room Air 98.7 08/03/17 20:00 66 08/03/17 18:51 53 20 Room Air 21 08/03/17 16:00 98.5 89 18 127/76 98 Room Air 98.5 08/03/17 16:00 63 08/03/17 12:00 98.4 63 18 130/80 100 Room Air 98.4 08/03/17 11:30 62 08/03/17 10:30 145/81 08/03/17 09:16 175/82 08/03/17 08:13 56 20 Room Air 21 Intake and Output 08/03/17 08/04/17 19:00 07:00 Intake Total 690 ml 75 ml Output Total 750 ml Balance 690 ml -675 ml Intake Oral 240 ml IV Total 450 ml 75 ml Output Urine Total 750 ml # Voids 3 Objective General Appearance: no acute distress HEENT: normocephalic, atraumatic, anicteric, mucous membranes moist Respiratory/Chest: lungs clear, no respiratory distress, no accessory muscle use Cardiovascular: normal rate - SR, prior ST, irregular Abdomen: normal bowel sounds, soft, non tender Extremities: no edema Neurologic/Psychiatric: alert, responsive, confused Musculoskeletal: atrophy - BLE Laboratory Tests 08/04/17 03:20: White Blood Count 9.6, Red Blood Count 4.44, Hemoglobin 13.1, Hematocrit 39.7, Mean Corpuscular Volume 89, Mean Corpuscular Hemoglobin 29.4, Mean Corpuscular Hemoglobin Concent 32.9, Red Cell Distribution Width 13.7, Platelet Count 267, Mean Platelet Volume 9.6, Neutrophils (%) (Auto) 65.8, Lymphocytes (%) (Auto) 26.1, Monocytes (%) (Auto) 6.4, Eosinophils (%) (Auto) 0.9, Basophils (%) (Auto ) 0.8, Sodium Level 140, Potassium Level 3.9, Chloride Level 105, Carbon Dioxide Level 25, Anion Gap 10, Blood Urea Nitrogen 27H, Creatinine 1.3, Estimat Glomerular Filtration Rate , Glucose Level 115H, Calcium Level 9.3 Current Medications Medications (Trade) Dose Ordered Sig/Edgar Route PRN Reason Start Time Stop Time Status Last Admin Dose Admin Albuterol/ Ipratropium (Albuterol/ Ipratropium) 3 ml Q4H PRN HHN dyspnea 08/02/17 17:26 08/07/17 17:25 Amlodipine Besylate (Norvasc) 5 mg DAILY ORAL 08/04/17 09:00 09/03/17 08:59 Baclofen (Lioresal) 5 mg THREE TIMES A DAY ORAL 08/02/17 18:00 08/28/17 12:59 08/03/17 17:11 Dextrose (Dextrose 50%) 25 ml STAT PRN IV Hypoglycemia 08/02/17 17:26 09/01/17 17:25 Dextrose (Dextrose 50%) 50 ml STAT PRN IV Hypoglycemia 08/02/17 17:26 09/01/17 17:25 Docusate Sodium (Colace) 100 mg EVERY 12 HOURS ORAL 08/03/17 21:00 08/28/17 17:59 08/03/17 20:25 Gabapentin (Neurontin) 300 mg THREE TIMES A DAY ORAL 08/02/17 18:00 08/28/17 12:59 08/03/17 17:11 Heparin Sodium (Porcine) (Heparin 5000 units/ml) 5,000 units EVERY 12 HOURS SUBQ 08/02/17 21:00 08/28/17 10:59 08/03/17 20:27 Hydralazine HCl (Apresoline) 50 mg Q6HR PRN ORAL For High Blood Pressure 08/04/17 08:00 09/03/17 07:59 UNV Insulin Aspart (NovoLOG) BEFORE MEALS AND HS SUBQ 08/02/17 21:00 08/29/17 11:29 08/03/17 20:26 Lorazepam (Ativan 2mg/ml 1ml) 0.5 mg Q4H PRN IV For Anxiety 08/02/17 17:29 08/05/17 17:28 Losartan Potassium (Cozaar) 100 mg BEDTIME ORAL 08/02/17 21:00 08/28/17 20:59 08/03/17 20:25 Mineral Oil (Fleet's Mineral Oil Enema) 133 ml DAILYPRN PRN RECTAL CONSTIPATION 08/02/17 17:30 09/01/17 17:29 Nitroglycerin (Ntg) 0.4 mg Q5M X 3 DOSES PRN SL Prn Chest Pain 08/02/17 17:30 08/28/17 08:59 Ondansetron HCl (Zofran) 4 mg Q6H PRN IVP Nausea & Vomiting 08/02/17 17:30 08/28/17 17:29 Pantoprazole (Protonix) 40 mg BID ORAL 08/02/17 18:00 08/28/17 11:14 08/03/17 17:11 Polyethylene Glycol (Miralax) 17 gm BEDTIME ORAL 08/02/17 21:00 08/28/17 20:59 08/02/17 20:38 Prednisone (predniSONE) 60 mg Taper DAILY ORAL 08/04/17 09:00 08/10/17 08:59 Sucralfate (Carafate) 1 gm THREE TIMES A DAY ORAL 08/02/17 18:00 08/28/17 12:59 08/03/17 17:11 Temazepam (Restoril) 15 mg HSPRN PRN ORAL Insomnia 08/02/17 21:00 08/09/17 20:59 Theophylline (Sean-Dur) 100 mg EVERY 12 HOURS ORAL 08/02/17 21:00 08/28/17 11:14 08/03/17 20:24 Trinh Gonsalves NP August 04, 2017 08:04
[2017-08-04] MEDS: Sucralfate 1gm tab ORAL SCH ×3 (08:38→18:54)
[2017-08-04] MEDS: Docusate 100mg cap ORAL SCH ×2 (08:39→21:41)
[2017-08-04] MEDS: Theophylline ER 100mg ORAL SCH ×2 (08:40→21:46)
[2017-08-04] MEDS: Heparin 5000 units/ml inj SUBQ SCH ×2 (08:43→21:54)
--- NOTE | 2017-08-04 10:04 | General Progress Note ---
Assessment/Plan Problem List: (1) Hypoxia ICD Codes: R09.02 - Hypoxemia SNOMED: 659697559 (2) Diabetes ICD Codes: E11.9 - Type 2 diabetes mellitus without complications SNOMED: 35176230 (3) Bradycardia ICD Codes: R00.1 - Bradycardia, unspecified SNOMED: 72897184 (4) Bronchospasm ICD Codes: J98.01 - Acute bronchospasm SNOMED: 8383301 (5) GERD (gastroesophageal reflux disease) ICD Codes: K21.9 - Gastro-esophageal reflux disease without esophagitis SNOMED: 792795503 Status: unchanged Assessment/Plan o2 pulm tx abx ot pt diet cbc bmp am may need pacer Subjective Constitutional: Reports: weakness Allergies: Coded Allergies: CODEINE (Verified Allergy, Unknown, 07/29/17) EGG (Verified Allergy, Unknown, 07/29/17) LISINOPRIL (Verified Allergy, Unknown, 07/29/17) MILK (Verified Allergy, Unknown, 07/29/17) PENICILLINS (Verified Allergy, Unknown, 07/29/17) All Systems: reviewed and negative except above Subjective sleepy calm in bed Objective Last 24 Hour Vital Signs Date Time Temp Pulse Resp B/P (MAP) Pulse Ox O2 Delivery O2 Flow Rate FiO2 08/04/17 08:36 100 159/102 08/04/17 08:34 97.7 100 20 159/102 97 Room Air 97.7 08/04/17 06:45 75 18 Room Air 21 08/04/17 04:00 97.9 73 20 190/92 98 Room Air 97.9 08/04/17 04:00 75 08/04/17 00:00 98.6 78 18 146/85 95 Room Air 98.6 08/04/17 00:00 71 08/03/17 20:25 140/76 08/03/17 20:00 98.7 80 18 140/72 95 Room Air 98.7 08/03/17 20:00 66 08/03/17 18:51 53 20 Room Air 21 08/03/17 16:00 98.5 89 18 127/76 98 Room Air 98.5 08/03/17 16:00 63 08/03/17 12:00 98.4 63 18 130/80 100 Room Air 98.4 08/03/17 11:30 62 5/19/18 10:30 145/81 Intake and Output 08/03/17 08/04/17 19:00 07:00 Intake Total 690 ml 75 ml Output Total 750 ml Balance 690 ml -675 ml Intake Oral 240 ml IV Total 450 ml 75 ml Output Urine Total 750 ml # Voids 3 Laboratory Tests 08/04/17 03:20: White Blood Count 9.6, Red Blood Count 4.44, Hemoglobin 13.1, Hematocrit 39.7, Mean Corpuscular Volume 89, Mean Corpuscular Hemoglobin 29.4, Mean Corpuscular Hemoglobin Concent 32.9, Red Cell Distribution Width 13.7, Platelet Count 267, Mean Platelet Volume 9.6, Neutrophils (%) (Auto) 65.8, Lymphocytes (%) (Auto) 26.1, Monocytes (%) (Auto) 6.4, Eosinophils (%) (Auto) 0.9, Basophils (%) (Auto ) 0.8, Sodium Level 140, Potassium Level 3.9, Chloride Level 105, Carbon Dioxide Level 25, Anion Gap 10, Blood Urea Nitrogen 27H, Creatinine 1.3, Estimat Glomerular Filtration Rate , Glucose Level 115H, Calcium Level 9.3 Height (Feet): 5 Height (Inches): 5.00 Weight (Pounds): 192 General Appearance: lethargic EENT: normal ENT inspection Neck: normal alignment Cardiovascular: normal peripheral pulses, normal rate, regular rhythm Respiratory/Chest: chest wall non-tender, decreased breath sounds Abdomen: normal bowel sounds, non tender, soft Extremities: normal inspection Edema: no edema noted Arm (L), no edema noted Arm (R), no edema noted Leg (L), no edema noted Leg (R), no edema noted Pedal (L), no edema noted Pedal (R), no edema noted Generalized Neurologic: motor weakness Skin: normal pigmentation, warm/dry Anderson MolinaDede August 04, 2017 10:04
--- NOTE | 2017-08-04 10:47 | General Progress Note ---
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 - mild rectal fecal impaction. - No definite acute process otherwise. - Diverticulosis. No evidence of diverticulitis - Fatty liver - Multiple well circumscribed renal masses. anemia work up reviewed fu cardiology recs for possible pacemaker, pending for Saturday if family agrees, family requesting [facility] transfer okay for DC per GI standpoint regular diet cont ppi BID + carafate OB stool r/o GI bleed pending monitor H&H, prn transfusions bowel regime >> colace + miralax, mineral oil enema prn ppi fu labs Subjective ROS Limited/Unobtainable: No Allergies: Coded Allergies: CODEINE (Verified Allergy, Unknown, 07/29/17) EGG (Verified Allergy, Unknown, 07/29/17) LISINOPRIL (Verified Allergy, Unknown, 07/29/17) MILK (Verified Allergy, Unknown, 07/29/17) PENICILLINS (Verified Allergy, Unknown, 07/29/17) Subjective had a good BM refused stool softener Objective Last 24 Hour Vital Signs Date Time Temp Pulse Resp B/P (MAP) Pulse Ox O2 Delivery O2 Flow Rate FiO2 08/04/17 10:00 82 20 138/80 08/04/17 08:36 100 159/102 08/04/17 08:34 97.7 100 20 159/102 97 Room Air 97.7 08/04/17 07:44 98 08/04/17 06:45 75 18 Room Air 21 08/04/17 04:00 97.9 73 20 190/92 98 Room Air 97.9 08/04/17 04:00 75 08/04/17 00:00 98.6 78 18 146/85 95 Room Air 98.6 08/04/17 00:00 71 08/03/17 20:25 140/76 08/03/17 20:00 98.7 80 18 140/72 95 Room Air 98.7 08/03/17 20:00 66 08/03/17 18:51 53 20 Room Air 21 08/03/17 16:00 98.5 89 18 127/76 98 Room Air 98.5 08/03/17 16:00 63 08/03/17 12:00 98.4 63 18 130/80 100 Room Air 98.4 08/03/17 11:30 62 Intake and Output 08/03/17 08/04/17 19:00 07:00 Intake Total 690 ml 75 ml Output Total 750 ml Balance 690 ml -675 ml Intake Oral 240 ml IV Total 450 ml 75 ml Output Urine Total 750 ml # Voids 3 Laboratory Tests 08/04/17 03:20: White Blood Count 9.6, Red Blood Count 4.44, Hemoglobin 13.1, Hematocrit 39.7, Mean Corpuscular Volume 89, Mean Corpuscular Hemoglobin 29.4, Mean Corpuscular Hemoglobin Concent 32.9, Red Cell Distribution Width 13.7, Platelet Count 267, Mean Platelet Volume 9.6, Neutrophils (%) (Auto) 65.8, Lymphocytes (%) (Auto) 26.1, Monocytes (%) (Auto) 6.4, Eosinophils (%) (Auto) 0.9, Basophils (%) (Auto ) 0.8, Sodium Level 140, Potassium Level 3.9, Chloride Level 105, Carbon Dioxide Level 25, Anion Gap 10, Blood Urea Nitrogen 27H, Creatinine 1.3, Estimat Glomerular Filtration Rate , Glucose Level 115H, Calcium Level 9.3 Height (Feet): 5 Height (Inches): 5.00 Weight (Pounds): 192 General Appearance: no apparent distress EENT: normal ENT inspection Neck: supple Cardiovascular: normal rate Respiratory/Chest: decreased breath sounds Abdomen: normal bowel sounds, non tender, soft Extremities: non-tender Cam Chao MD August 04, 2017 10:47
--- NOTE | 2017-08-04 13:40 | Neurology Progress Note ---
Interim History Interim History Interim History Ms. Benites feels well. She continues to have cognitive dysfunction. She continues to be generally weak. She denies any new neurologic symptoms. She tells me that she had palpitations this morning. Her blood pressure was also very high this morning but is better now. It is unclear as to what is being planned for her from a cardiac point of view. Review of Systems Neuro Review of Systems Benign. Objective Physical Exam Last Vital Signs Date Time Temp Pulse Resp B/P (MAP) Pulse Ox O2 Delivery O2 Flow Rate FiO2 08/04/17 12:00 69 08/04/17 10:00 20 138/80 08/04/17 08:34 97.7 97 Room Air 97.7 08/04/17 06:45 21 07/30/17 16:00 2.0 Laboratory Tests Test 08/04/17 03:20 White Blood Count 9.6 K/UL (4.8-10.8) Red Blood Count 4.44 M/UL (4.20-5.40) Hemoglobin 13.1 G/DL (12.0-16.0) Hematocrit 39.7 % (37.0-47.0) Mean Corpuscular Volume 89 FL (80-99) Mean Corpuscular Hemoglobin 29.4 PG (27.0-31.0) Mean Corpuscular Hemoglobin Concent 32.9 G/DL (32.0-36.0) Red Cell Distribution Width 13.7 % (11.6-14.8) Platelet Count 267 K/UL (150-450) Mean Platelet Volume 9.6 FL (6.5-10.1) Neutrophils (%) (Auto) 65.8 % (45.0-75.0) Lymphocytes (%) (Auto) 26.1 % (20.0-45.0) Monocytes (%) (Auto) 6.4 % (1.0-10.0) Eosinophils (%) (Auto) 0.9 % (0.0-3.0) Basophils (%) (Auto) 0.8 % (0.0-2.0) Sodium Level 140 MMOL/L (136-145) Potassium Level 3.9 MMOL/L (3.5-5.1) Chloride Level 105 MMOL/L (98-107) Carbon Dioxide Level 25 MMOL/L (21-32) Anion Gap 10 mmol/L (5-15) Blood Urea Nitrogen 27 mg/dL (7-18) H Creatinine 1.3 MG/DL (0.55-1.30) Estimat Glomerular Filtration Rate mL/min (>60) Glucose Level 115 MG/DL (74-106) H Calcium Level 9.3 MG/DL (8.5-10.1) Neurologic Exam Objective PHYSICAL EXAMINATION: GENERAL: She is a well-developed and well-nourished, obese, black lady, lying in bed, in no acute distress. HEAD: Head normocephalic and atraumatic. NECK: No neck rigidity was observed. EENT: Examination benign. NEUROLOGIC EXAMINATION: MENTAL STATUS EXAMINATION: She was awake and alert. She was oriented to [facility], [facility], and July 2017. She did not know the exact date. She was able to recall 3/3 words immediately, but could only remember 1/3 words in 1 minute and 3 minutes. She was able to remember presidents Trump through Johnson senior with minimal hints. Her mathematical skills were impaired. Her visuospatial function was also impaired. SPEECH: She had no dysarthria. LANGUAGE: She had anomia for low and mid frequency words. CRANIAL NERVE EXAMINATION: II: The visual daniels were intact to confrontation testing. III, IV & : External ocular movements were full and the pupils 3 mm in diameter, equal, round, regular, and reactive sluggishly to light. V: She had normal facial sensations, and the temporales, masseters, and pterygoids functioned normally. VII: She had a left seventh central facial paresis. VIII: She was able to hear well bilaterally and had no nystagmus. IX: The palate moved symmetrically on phonation. X: She had no hoarseness of voice. XI: The sternocleidomastoids and trapezii functioned normally. XII: The tongue was in the midline without any fasciculations or atrophy. MOTOR SYSTEM: Tone was normal in all four extremities. Examination of muscle mass revealed significant wasting of the hand muscles on the left side more than the right with a left hand contracture. Examination of power was exceedingly difficult to perform because of varying degrees of effort. 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 SENSORY EXAMINATION: She complained of altered sensations in her left hand but normal sensations in the right hand and both feet. REFLEXES: 2+ on the right and 1+ on the left at the biceps, triceps, brachioradialis and knees. 0 at both ankles. The plantar responses were flexor bilaterally. COORDINATION, STANCE & GAIT: Could not be tested. Impression/Recommendations Diagnostic Impression 1. Ms Deepika Benites is an 87-year-old right-handed black lady, who does have a past history of hypertension, diabetes mellitus, dementia, and loss of ability to walk approximately 3 to 4 years ago following which she has been living in a intermediate where she fell down and had multiple fractures with loss of ability to use the left hand and then what she believes was a stroke a few years ago with left facial twisting and problems moving a right hand. These problems have continued. 2. She feels well. She continues to have cognitive dysfunction. She continues to be generally weak. She denies any new neurologic symptoms. She tells me that she had palpitations this morning. Her blood pressure was also very high this morning but is better now. It is unclear as to what is being planned for her from a cardiac point of view. 3. On neurological examination, at this time, she does demonstrate problems with orientation, recent and remote memory, visuospatial function, higher cognitive function, and language. 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 4. Her Carotid duplex was benign for significant stenosis. 5. Her daughter refused brain imaging and thus it is unclear as to whether she has had a stroke or not. 6. 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 7. She does have significant cardiac pathology. Recommendations 1. Continue present management. 2. Continue to keep her blood pressure and blood sugar under good control. 3. Cardiac work-up as per Dr. Giordano. Wilber Sánchez M.D., M.S.[facility]. WILBER SÁNCHEZ August 04, 2017 13:40
[2017-08-04] MEDS: Miralax 17gm pkt ORAL SCH (21:41)
[2017-08-04] MEDS: Losartan 50mg tab ORAL SCH (21:44)
--- NOTE | 2017-08-04 23:43 | Cardiology Progress Note ---
Assessment/Plan Assessment/Plan 1. 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 2. 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 Mild pulmonary HTN. Subjective Subjective Sinus rhythm at 79. Earlier today heart rate had gone up to >100. Objective Last 24 Hour Vital Signs Date Time Temp Pulse Resp B/P (MAP) Pulse Ox O2 Delivery O2 Flow Rate FiO2 08/04/17 21:44 138/77 08/04/17 19:57 79 20 Room Air 21 08/04/17 16:30 97.5 79 20 152/90 97 Room Air 97.5 08/04/17 16:00 77 08/04/17 12:15 97.2 76 20 151/81 100 Room Air 97.2 08/04/17 12:00 69 08/04/17 10:00 82 20 138/80 08/04/17 08:36 100 159/102 08/04/17 08:34 97.7 100 20 159/102 97 Room Air 97.7 08/04/17 07:44 98 08/04/17 06:45 75 18 Room Air 21 08/04/17 04:00 97.9 73 20 190/92 98 Room Air 97.9 08/04/17 04:00 75 08/04/17 00:00 98.6 78 18 146/85 95 Room Air 98.6 08/04/17 00:00 71 Intake and Output 08/03/17 08/04/17 19:00 07:00 Intake Total 690 ml 75 ml Output Total 750 ml Balance 690 ml -675 ml Intake Oral 240 ml IV Total 450 ml 75 ml Output Urine Total 750 ml # Voids 3 2D Echo: EF 65%, Mild LVH, Mild MR,RVSP 43 mmHg,Normal intracardiac filling pressure Laboratory Tests Test 08/04/17 03:20 White Blood Count 9.6 K/UL (4.8-10.8) Red Blood Count 4.44 M/UL (4.20-5.40) Hemoglobin 13.1 G/DL (12.0-16.0) Hematocrit 39.7 % (37.0-47.0) Mean Corpuscular Volume 89 FL (80-99) Mean Corpuscular Hemoglobin 29.4 PG (27.0-31.0) Mean Corpuscular Hemoglobin Concent 32.9 G/DL (32.0-36.0) Red Cell Distribution Width 13.7 % (11.6-14.8) Platelet Count 267 K/UL (150-450) Mean Platelet Volume 9.6 FL (6.5-10.1) Neutrophils (%) (Auto) 65.8 % (45.0-75.0) Lymphocytes (%) (Auto) 26.1 % (20.0-45.0) Monocytes (%) (Auto) 6.4 % (1.0-10.0) Eosinophils (%) (Auto) 0.9 % (0.0-3.0) Basophils (%) (Auto) 0.8 % (0.0-2.0) Sodium Level 140 MMOL/L (136-145) Potassium Level 3.9 MMOL/L (3.5-5.1) Chloride Level 105 MMOL/L (98-107) Carbon Dioxide Level 25 MMOL/L (21-32) Anion Gap 10 mmol/L (5-15) Blood Urea Nitrogen 27 mg/dL (7-18) H Creatinine 1.3 MG/DL (0.55-1.30) Estimat Glomerular Filtration Rate mL/min (>60) Glucose Level 115 MG/DL (74-106) H Calcium Level 9.3 MG/DL (8.5-10.1) Objective HEENT: Normocepahic, anicteric, PERRLA, EOMI. NECK: No JVD, no carotid bruit, carotid upstroke 2+ B/L CHEST: Mild wheezes at bases of both lungs. HEART: Normal S1 and S2, RRR, no murmurs, gallops or rubs. ABDOMEN: Obese and nontender, non-distended, + BS. EXTREMITIES: No edema, clubbing or cyanosis. Dontrell Tubbs MD August 04, 2017 23:43
[2017-08-05] VITALS: BP 159/78
[2017-08-05 04:00] VITALS: BP 179/95
[2017-08-05] MEDS: NovoLOG Insulin Flexpen SUBQ SCH ×4 (06:17→20:54)
[2017-08-05 07:20] LABS: ANION GAP 8 mmol/L (5-15); BLOOD UREA NITROGEN 30 mg/dL (7-18); CALCIUM 9.1 MG/DL (8.5-10.1); CARBON DIOXIDE 28 MMOL/L (21-32); CHLORIDE 104 MMOL/L (98-107); CREATININE 1.4 MG/DL (0.55-1.30); POTASSIUM 4.1 MMOL/L (3.5-5.1); SODIUM 140 MMOL/L (136-145)
[2017-08-05 07:23] LABS: EOSINOPHILS % (AUTO) 2.3 % (0.0-3.0); HEMATOCRIT 39.3 % (37.0-47.0); LYMPHOCYTES % (AUTO) 23.5 % (20.0-45.0); MEAN CORPUSCULAR VOLUME 89 FL (80-99); MONOCYTES % (AUTO) 7.1 % (1.0-10.0); NEUTROPHILS % (AUTO) 66.2 % (45.0-75.0); PLATELET COUNT 252 K/UL (150-450); RED CELL DISTRIBUTION WIDTH 13.7 % (11.6-14.8); WHITE BLOOD COUNT 8.5 K/UL (4.8-10.8)
[2017-08-05 08:00] VITALS: BP 159/79
--- NOTE | 2017-08-05 09:39 | Neurology Progress Note ---
Interim History Interim History Interim History Ms. Benites feels well. She continues to have cognitive dysfunction. She continues to be generally weak. She denies any new neurologic symptoms. She denies any cardiac symptoms. It is unclear as to what is being planned for her from a cardiac point of view. Review of Systems Neuro Review of Systems Benign. Objective Physical Exam Last Vital Signs Date Time Temp Pulse Resp B/P (MAP) Pulse Ox O2 Delivery O2 Flow Rate FiO2 08/05/17 08:00 97.9 68 17 159/79 97 Room Air 97.9 08/05/17 07:56 21 07/30/17 16:00 2.0 Laboratory Tests Test 08/05/17 05:00 White Blood Count 8.5 K/UL (4.8-10.8) Red Blood Count 4.40 M/UL (4.20-5.40) Hemoglobin 13.0 G/DL (12.0-16.0) Hematocrit 39.3 % (37.0-47.0) Mean Corpuscular Volume 89 FL (80-99) Mean Corpuscular Hemoglobin 29.4 PG (27.0-31.0) Mean Corpuscular Hemoglobin Concent 32.9 G/DL (32.0-36.0) Red Cell Distribution Width 13.7 % (11.6-14.8) Platelet Count 252 K/UL (150-450) Mean Platelet Volume 9.3 FL (6.5-10.1) Neutrophils (%) (Auto) 66.2 % (45.0-75.0) Lymphocytes (%) (Auto) 23.5 % (20.0-45.0) Monocytes (%) (Auto) 7.1 % (1.0-10.0) Eosinophils (%) (Auto) 2.3 % (0.0-3.0) Basophils (%) (Auto) 1.0 % (0.0-2.0) Sodium Level 140 MMOL/L (136-145) Potassium Level 4.1 MMOL/L (3.5-5.1) Chloride Level 104 MMOL/L (98-107) Carbon Dioxide Level 28 MMOL/L (21-32) Anion Gap 8 mmol/L (5-15) Blood Urea Nitrogen 30 mg/dL (7-18) H Creatinine 1.4 MG/DL (0.55-1.30) H Estimat Glomerular Filtration Rate mL/min (>60) Glucose Level 110 MG/DL (74-106) H Calcium Level 9.1 MG/DL (8.5-10.1) Neurologic Exam Objective PHYSICAL EXAMINATION: GENERAL: She is a well-developed and well-nourished, obese, black lady, lying in bed, in no acute distress. HEAD: Head normocephalic and atraumatic. NECK: No neck rigidity was observed. EENT: Examination benign. NEUROLOGIC EXAMINATION: MENTAL STATUS EXAMINATION: She was awake and alert. She was oriented to [facility], [facility], and July 2017. She did not know the exact date. She was able to recall 3/3 words immediately, but could only remember 1/3 words in 1 minute and 3 minutes. She was able to remember presidents Trump through Johnson senior with minimal hints. Her mathematical skills were impaired. Her visuospatial function was also impaired. SPEECH: She had no dysarthria. LANGUAGE: She had anomia for low and mid frequency words. CRANIAL NERVE EXAMINATION: II: The visual daniels were intact to confrontation testing. III, IV & : External ocular movements were full and the pupils 3 mm in diameter, equal, round, regular, and reactive sluggishly to light. V: She had normal facial sensations, and the temporales, masseters, and pterygoids functioned normally. VII: She had a left seventh central facial paresis. VIII: She was able to hear well bilaterally and had no nystagmus. IX: The palate moved symmetrically on phonation. X: She had no hoarseness of voice. XI: The sternocleidomastoids and trapezii functioned normally. XII: The tongue was in the midline without any fasciculations or atrophy. MOTOR SYSTEM: Tone was normal in all four extremities. Examination of muscle mass revealed significant wasting of the hand muscles on the left side more than the right with a left hand contracture. Examination of power was exceedingly difficult to perform because of varying degrees of effort. 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 SENSORY EXAMINATION: She complained of altered sensations in her left hand but normal sensations in the right hand and both feet. REFLEXES: 2+ on the right and 1+ on the left at the biceps, triceps, brachioradialis and knees. 0 at both ankles. The plantar responses were flexor bilaterally. COORDINATION, STANCE & GAIT: Could not be tested. Impression/Recommendations Diagnostic Impression 1. Ms Deepika Benites is an 87-year-old right-handed black lady, who does have a past history of hypertension, diabetes mellitus, dementia, and loss of ability to walk approximately 3 to 4 years ago following which she has been living in a group home where she fell down and had multiple fractures with loss of ability to use the left hand and then what she believes was a stroke a few years ago with left facial twisting and problems moving a right hand. These problems have continued. 2. She feels well. She continues to have cognitive dysfunction. She continues to be generally weak. She denies any new neurologic symptoms. She tells me that she had palpitations this morning. Her blood pressure was also very high this morning but is better now. It is unclear as to what is being planned for her from a cardiac point of view. 3. On neurological examination, at this time, she does demonstrate problems with orientation, recent and remote memory, visuospatial function, higher cognitive function, and language. 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 4. Her Carotid duplex was benign for significant stenosis. 5. Her daughter refused brain imaging and thus it is unclear as to whether she has had a stroke or not. 6. 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 7. She does have significant cardiac pathology. Recommendations 1. Continue present management. 2. Continue to keep her blood pressure and blood sugar under good control. 3. Cardiac work-up as per Dr. Giordano. Wilber Sánchez M.D., M.S.[facility]. WILBER SÁNCHEZ August 05, 2017 09:39
[2017-08-05] MEDS: Theophylline ER 100mg ORAL SCH ×2 (09:56→20:51)
[2017-08-05] MEDS: Docusate 100mg cap ORAL SCH ×2 (09:58→20:48)
[2017-08-05] MEDS: Sucralfate 1gm tab ORAL SCH ×3 (09:58→18:19)
[2017-08-05] MEDS: Heparin 5000 units/ml inj SUBQ SCH ×2 (09:59→20:52)
--- NOTE | 2017-08-05 11:08 | GI Progress Note ---
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 - mild rectal fecal impaction. - No definite acute process otherwise. - Diverticulosis. No evidence of diverticulitis - Fatty liver - Multiple well circumscribed renal masses. anemia work up reviewed fu cardiology recs for possible pacemaker okay for DC per GI standpoint regular diet cont ppi BID + carafate OB stool r/o GI bleed pending monitor H&H, prn transfusions bowel regime >> colace + miralax, mineral oil enema prn ppi fu labs The patient was seen and examined at bedside and all new and available data was reviewed in the patients chart. I agree with the above findings, impression and plan. (Patient seen earlier today. Signature stamp does not reflect patient encounter time.). - Cam Chao MD Subjective Subjective limited, agitated wants to go home Objective Last 24 Hour Vital Signs Date Time Temp Pulse Resp B/P (MAP) Pulse Ox O2 Delivery O2 Flow Rate FiO2 08/05/17 09:00 68 159/79 08/05/17 08:00 97.9 68 17 159/79 97 Room Air 97.9 08/05/17 08:00 66 08/05/17 07:56 63 16 Room Air 21 08/05/17 04:00 97.5 76 20 179/95 98 Room Air 97.5 08/05/17 04:00 52 08/05/17 00:00 97.6 62 18 159/78 96 Room Air 97.6 08/05/17 00:00 64 08/04/17 21:44 138/77 08/04/17 20:00 78 08/04/17 20:00 97.7 77 20 160/71 98 Room Air 97.7 08/04/17 19:57 79 20 Room Air 21 08/04/17 16:30 97.5 79 20 152/90 97 Room Air 97.5 08/04/17 16:00 77 08/04/17 12:15 97.2 76 20 151/81 100 Room Air 97.2 08/04/17 12:00 69 Intake and Output 08/04/17 08/05/17 19:00 07:00 Intake Total 1230 ml 240 ml Output Total 1900 ml 200 ml Balance -670 ml 40 ml Intake Oral 1230 ml 240 ml Output Urine Total 1900 ml 200 ml # Bowel Movements 1 Laboratory Tests Test 08/05/17 05:00 White Blood Count 8.5 K/UL (4.8-10.8) Red Blood Count 4.40 M/UL (4.20-5.40) Hemoglobin 13.0 G/DL (12.0-16.0) Hematocrit 39.3 % (37.0-47.0) Mean Corpuscular Volume 89 FL (80-99) Mean Corpuscular Hemoglobin 29.4 PG (27.0-31.0) Mean Corpuscular Hemoglobin Concent 32.9 G/DL (32.0-36.0) Red Cell Distribution Width 13.7 % (11.6-14.8) Platelet Count 252 K/UL (150-450) Mean Platelet Volume 9.3 FL (6.5-10.1) Neutrophils (%) (Auto) 66.2 % (45.0-75.0) Lymphocytes (%) (Auto) 23.5 % (20.0-45.0) Monocytes (%) (Auto) 7.1 % (1.0-10.0) Eosinophils (%) (Auto) 2.3 % (0.0-3.0) Basophils (%) (Auto) 1.0 % (0.0-2.0) Sodium Level 140 MMOL/L (136-145) Potassium Level 4.1 MMOL/L (3.5-5.1) Chloride Level 104 MMOL/L (98-107) Carbon Dioxide Level 28 MMOL/L (21-32) Anion Gap 8 mmol/L (5-15) Blood Urea Nitrogen 30 mg/dL (7-18) H Creatinine 1.4 MG/DL (0.55-1.30) H Estimat Glomerular Filtration Rate mL/min (>60) Glucose Level 110 MG/DL (74-106) H Calcium Level 9.1 MG/DL (8.5-10.1) Height (Feet): 5 Height (Inches): 5.00 Weight (Pounds): 185 General Appearance: WD/WN, no apparent distress, alert, obese Cardiovascular: normal rate Respiratory/Chest: normal breath sounds, no respiratory distress Abdominal Exam: normal bowel sounds, non tender, soft Extremities: normal range of motion, non-tender Objective CT AP reviewed, see full report. - mild rectal fecal impaction. - No definite acute process otherwise. - Diverticulosis. No evidence of diverticulitis - Fatty liver - Multiple well circumscribed renal masses. anemia work up reviewed fu cardiology recs for possible pacemaker, pending for Saturday if family agrees, family requesting [facility] transfer okay for DC per GI standpoint regular diet cont ppi BID + carafate OB stool r/o GI bleed pending monitor H&H, prn transfusions bowel regime >> colace + miralax, mineral oil enema prn ppi fu labs Kevin Garcia NP August 05, 2017 11:08
--- NOTE | 2017-08-05 11:31 | Infectious Diseases Prog Note ---
Assessment/Plan Assessment/Plan ASSESSMENT: The patient is an 87-year-old female with, COPD exacerbation, no Pna Chest x-ray, NAPD. UCx : E. Coli asymptomatic bacteriuria. 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 Osteoarthritis. Hyperlipidemia. GERD/Barcenas esophagitis. History of asthma PLAN: monitor pt off of AB Rx 08/01 SP Levaquin day # Monitor CBC. Monitor BMP Cardio fup requires pacemaker implantation Subjective Allergies: Coded Allergies: CODEINE (Verified Allergy, Unknown, 07/29/17) EGG (Verified Allergy, Unknown, 07/29/17) LISINOPRIL (Verified Allergy, Unknown, 07/29/17) MILK (Verified Allergy, Unknown, 07/29/17) PENICILLINS (Verified Allergy, Unknown, 07/29/17) Subjective afebrile no leukocytosis off abx Objective Vital Signs Last 24 Hour Vital Signs Date Time Temp Pulse Resp B/P (MAP) Pulse Ox O2 Delivery O2 Flow Rate FiO2 08/05/17 09:00 68 159/79 08/05/17 08:00 97.9 68 17 159/79 97 Room Air 97.9 08/05/17 08:00 66 08/05/17 07:56 63 16 Room Air 21 08/05/17 04:00 97.5 76 20 179/95 98 Room Air 97.5 08/05/17 04:00 52 08/05/17 00:00 97.6 62 18 159/78 96 Room Air 97.6 08/05/17 00:00 64 08/04/17 21:44 138/77 08/04/17 20:00 78 08/04/17 20:00 97.7 77 20 160/71 98 Room Air 97.7 08/04/17 19:57 79 20 Room Air 21 08/04/17 16:30 97.5 79 20 152/90 97 Room Air 97.5 08/04/17 16:00 77 08/04/17 12:15 97.2 76 20 151/81 100 Room Air 97.2 08/04/17 12:00 69 Height (Feet): 5 Height (Inches): 5.00 Weight (Pounds): 185 Objective General Appearance: WD/WN, no apparent distress, alert, obese Cardiovascular: normal rate Respiratory/Chest: normal breath sounds, no respiratory distress Abdominal Exam: normal bowel sounds, non tender, soft Extremities: normal range of motion, non-tender Laboratory Tests Test 08/05/17 05:00 White Blood Count 8.5 K/UL (4.8-10.8) Red Blood Count 4.40 M/UL (4.20-5.40) Hemoglobin 13.0 G/DL (12.0-16.0) Hematocrit 39.3 % (37.0-47.0) Mean Corpuscular Volume 89 FL (80-99) Mean Corpuscular Hemoglobin 29.4 PG (27.0-31.0) Mean Corpuscular Hemoglobin Concent 32.9 G/DL (32.0-36.0) Red Cell Distribution Width 13.7 % (11.6-14.8) Platelet Count 252 K/UL (150-450) Mean Platelet Volume 9.3 FL (6.5-10.1) Neutrophils (%) (Auto) 66.2 % (45.0-75.0) Lymphocytes (%) (Auto) 23.5 % (20.0-45.0) Monocytes (%) (Auto) 7.1 % (1.0-10.0) Eosinophils (%) (Auto) 2.3 % (0.0-3.0) Basophils (%) (Auto) 1.0 % (0.0-2.0) Sodium Level 140 MMOL/L (136-145) Potassium Level 4.1 MMOL/L (3.5-5.1) Chloride Level 104 MMOL/L (98-107) Carbon Dioxide Level 28 MMOL/L (21-32) Anion Gap 8 mmol/L (5-15) Blood Urea Nitrogen 30 mg/dL (7-18) H Creatinine 1.4 MG/DL (0.55-1.30) H Estimat Glomerular Filtration Rate mL/min (>60) Glucose Level 110 MG/DL (74-106) H Calcium Level 9.1 MG/DL (8.5-10.1) Current Medications Medications (Trade) Dose Ordered Sig/Edgar Route PRN Reason Start Time Stop Time Status Last Admin Dose Admin Albuterol/ Ipratropium (Albuterol/ Ipratropium) 3 ml Q4H PRN HHN dyspnea 08/02/17 17:26 08/07/17 17:25 Amlodipine Besylate (Norvasc) 5 mg DAILY ORAL 08/04/17 09:00 09/03/17 08:59 08/05/17 09:00 Baclofen (Lioresal) 5 mg THREE TIMES A DAY ORAL 08/02/17 18:00 08/28/17 12:59 08/05/17 09:57 Dextrose (Dextrose 50%) 25 ml STAT PRN IV Hypoglycemia 08/02/17 17:26 09/01/17 17:25 Dextrose (Dextrose 50%) 50 ml STAT PRN IV Hypoglycemia 08/02/17 17:26 09/01/17 17:25 Docusate Sodium (Colace) 100 mg EVERY 12 HOURS ORAL 08/03/17 21:00 08/28/17 17:59 08/05/17 09:58 Gabapentin (Neurontin) 300 mg THREE TIMES A DAY ORAL 08/02/17 18:00 08/28/17 12:59 08/05/17 09:56 Heparin Sodium (Porcine) (Heparin 5000 units/ml) 5,000 units EVERY 12 HOURS SUBQ 08/02/17 21:00 08/28/17 10:59 08/05/17 09:59 Hydralazine HCl (Apresoline) 50 mg Q6H PRN ORAL SBP > 160mmHg 08/04/17 08:00 09/03/17 07:59 Insulin Aspart (NovoLOG) BEFORE MEALS AND HS SUBQ 08/02/17 21:00 08/29/17 11:29 08/04/17 21:53 Lorazepam (Ativan 2mg/ml 1ml) 0.5 mg Q4H PRN IV For Anxiety 08/02/17 17:29 08/05/17 17:28 Losartan Potassium (Cozaar) 100 mg BEDTIME ORAL 08/02/17 21:00 08/28/17 20:59 08/04/17 21:44 Mineral Oil (Fleet's Mineral Oil Enema) 133 ml DAILYPRN PRN RECTAL CONSTIPATION 08/02/17 17:30 09/01/17 17:29 Nitroglycerin (Ntg) 0.4 mg Q5M X 3 DOSES PRN SL Prn Chest Pain 08/02/17 17:30 08/28/17 08:59 Ondansetron HCl (Zofran) 4 mg Q6H PRN IVP Nausea & Vomiting 08/02/17 17:30 08/28/17 17:29 Pantoprazole (Protonix) 40 mg BID ORAL 08/02/17 18:00 08/28/17 11:14 08/05/17 09:57 Polyethylene Glycol (Miralax) 17 gm BEDTIME ORAL 08/02/17 21:00 08/28/17 20:59 08/04/17 21:41 Prednisone (predniSONE) 50 mg Taper DAILY ORAL 08/04/17 09:00 08/10/17 08:59 08/05/17 09:57 Sucralfate (Carafate) 1 gm THREE TIMES A DAY ORAL 08/02/17 18:00 08/28/17 12:59 08/05/17 09:58 Temazepam (Restoril) 15 mg HSPRN PRN ORAL Insomnia 08/02/17 21:00 08/09/17 20:59 Theophylline (Sean-Dur) 100 mg EVERY 12 HOURS ORAL 08/02/17 21:00 08/28/17 11:14 08/05/17 09:56 Beulah Vega M.D. August 05, 2017 11:31
[2017-08-05 12:00] VITALS: BP 148/68
--- NOTE | 2017-08-05 12:16 | Pulmonology Progress Note ---
Assessment/Plan Problems: (1) Acute asthma exacerbation (2) Pulmonary edema (3) Bradycardia (4) History of asthma (5) History of hypertension Assessment/Plan sinus rhythm now respiratory treatment titrate fio2 to sat of 92% taper steroids to qd sputum induction echo reviewed: EF 60%, moderate pulmonary hypertension dvt prophylaxis awaiting pacemaker insertion Subjective ROS Limited/Unobtainable: No Constitutional: Reports: no symptoms HEENT: Repors: no symptoms Respiratory: Reports: no symptoms Allergies: Coded Allergies: CODEINE (Verified Allergy, Unknown, 07/29/17) EGG (Verified Allergy, Unknown, 07/29/17) LISINOPRIL (Verified Allergy, Unknown, 07/29/17) MILK (Verified Allergy, Unknown, 07/29/17) PENICILLINS (Verified Allergy, Unknown, 07/29/17) Objective Last 24 Hour Vital Signs Date Time Temp Pulse Resp B/P (MAP) Pulse Ox O2 Delivery O2 Flow Rate FiO2 08/05/17 09:00 68 159/79 08/05/17 08:00 97.9 68 17 159/79 97 Room Air 97.9 08/05/17 08:00 66 08/05/17 07:56 63 16 Room Air 21 08/05/17 04:00 97.5 76 20 179/95 98 Room Air 97.5 08/05/17 04:00 52 08/05/17 00:00 97.6 62 18 159/78 96 Room Air 97.6 08/05/17 00:00 64 08/04/17 21:44 138/77 08/04/17 20:00 78 08/04/17 20:00 97.7 77 20 160/71 98 Room Air 97.7 08/04/17 19:57 79 20 Room Air 21 08/04/17 16:30 97.5 79 20 152/90 97 Room Air 97.5 08/04/17 16:00 77 Intake and Output 08/04/17 08/05/17 19:00 07:00 Intake Total 1230 ml 240 ml Output Total 1900 ml 200 ml Balance -670 ml 40 ml Intake Oral 1230 ml 240 ml Output Urine Total 1900 ml 200 ml # Bowel Movements 1 General Appearance: WD/WN HEENT: normocephalic, atraumatic Respiratory/Chest: chest wall non-tender, normal breath sounds Breasts: no masses Cardiovascular: normal peripheral pulses Abdomen: normal bowel sounds, soft, non tender Genitourinary: normal external genitalia Extremities: no cyanosis Neurologic/Psychiatric: fresh work wrapper layer II-XII grossly normal Lymphatic: no neck adenopathy Laboratory Tests 08/05/17 05:00: White Blood Count 8.5, Red Blood Count 4.40, Hemoglobin 13.0, Hematocrit 39.3, Mean Corpuscular Volume 89, Mean Corpuscular Hemoglobin 29.4, Mean Corpuscular Hemoglobin Concent 32.9, Red Cell Distribution Width 13.7, Platelet Count 252, Mean Platelet Volume 9.3, Neutrophils (%) (Auto) 66.2, Lymphocytes (%) (Auto) 23.5, Monocytes (%) (Auto) 7.1, Eosinophils (%) (Auto) 2.3, Basophils (%) (Auto ) 1.0, Sodium Level 140, Potassium Level 4.1, Chloride Level 104, Carbon Dioxide Level 28, Anion Gap 8, Blood Urea Nitrogen 30H, Creatinine 1.4H, Estimat Glomerular Filtration Rate , Glucose Level 110H, Calcium Level 9.1 Current Medications Medications (Trade) Dose Ordered Sig/Edgar Route PRN Reason Start Time Stop Time Status Last Admin Dose Admin Albuterol/ Ipratropium (Albuterol/ Ipratropium) 3 ml Q4H PRN HHN dyspnea 08/02/17 17:26 08/07/17 17:25 Amlodipine Besylate (Norvasc) 5 mg DAILY ORAL 08/04/17 09:00 09/03/17 08:59 08/05/17 09:00 Baclofen (Lioresal) 5 mg THREE TIMES A DAY ORAL 08/02/17 18:00 08/28/17 12:59 08/05/17 09:57 Dextrose (Dextrose 50%) 25 ml STAT PRN IV Hypoglycemia 08/02/17 17:26 09/01/17 17:25 Dextrose (Dextrose 50%) 50 ml STAT PRN IV Hypoglycemia 08/02/17 17:26 09/01/17 17:25 Docusate Sodium (Colace) 100 mg EVERY 12 HOURS ORAL 08/03/17 21:00 08/28/17 17:59 08/05/17 09:58 Gabapentin (Neurontin) 300 mg THREE TIMES A DAY ORAL 08/02/17 18:00 08/28/17 12:59 08/05/17 09:56 Heparin Sodium (Porcine) (Heparin 5000 units/ml) 5,000 units EVERY 12 HOURS SUBQ 08/02/17 21:00 08/28/17 10:59 08/05/17 09:59 Hydralazine HCl (Apresoline) 50 mg Q6H PRN ORAL SBP > 160mmHg 08/04/17 08:00 09/03/17 07:59 Insulin Aspart (NovoLOG) BEFORE MEALS AND HS SUBQ 08/02/17 21:00 08/29/17 11:29 08/04/17 21:53 Lorazepam (Ativan 2mg/ml 1ml) 0.5 mg Q4H PRN IV For Anxiety 08/02/17 17:29 08/05/17 17:28 Losartan Potassium (Cozaar) 100 mg BEDTIME ORAL 08/02/17 21:00 08/28/17 20:59 08/04/17 21:44 Mineral Oil (Fleet's Mineral Oil Enema) 133 ml DAILYPRN PRN RECTAL CONSTIPATION 08/02/17 17:30 09/01/17 17:29 Nitroglycerin (Ntg) 0.4 mg Q5M X 3 DOSES PRN SL Prn Chest Pain 08/02/17 17:30 08/28/17 08:59 Ondansetron HCl (Zofran) 4 mg Q6H PRN IVP Nausea & Vomiting 08/02/17 17:30 08/28/17 17:29 Pantoprazole (Protonix) 40 mg BID ORAL 08/02/17 18:00 08/28/17 11:14 08/05/17 09:57 Polyethylene Glycol (Miralax) 17 gm BEDTIME ORAL 08/02/17 21:00 08/28/17 20:59 08/04/17 21:41 Prednisone (predniSONE) 50 mg Taper DAILY ORAL 08/04/17 09:00 08/10/17 08:59 08/05/17 09:57 Sucralfate (Carafate) 1 gm THREE TIMES A DAY ORAL 08/02/17 18:00 08/28/17 12:59 08/05/17 09:58 Temazepam (Restoril) 15 mg HSPRN PRN ORAL Insomnia 08/02/17 21:00 08/09/17 20:59 Theophylline (Sean-Dur) 100 mg EVERY 12 HOURS ORAL 5/18/18 21:00 08/28/17 11:14 08/05/17 09:56 Sherri Phillips MD August 05, 2017 12:16
--- NOTE | 2017-08-05 12:27 | General Progress Note ---
Assessment/Plan Assessment/Plan the pt lacks capacity to make decisions dementia with behavioral issues. next of kin should make decision Subjective Date patient seen: August 05, 2017 Neurologic/Psychiatric: Reports: anxiety, emotional problems Allergies: Coded Allergies: CODEINE (Verified Allergy, Unknown, 07/29/17) EGG (Verified Allergy, Unknown, 07/29/17) LISINOPRIL (Verified Allergy, Unknown, 07/29/17) MILK (Verified Allergy, Unknown, 07/29/17) PENICILLINS (Verified Allergy, Unknown, 07/29/17) Subjective started to take meds more alert has not taken psych meds since in hospital Objective Last 24 Hour Vital Signs Date Time Temp Pulse Resp B/P (MAP) Pulse Ox O2 Delivery O2 Flow Rate FiO2 08/05/17 09:00 68 159/79 08/05/17 08:00 97.9 68 17 159/79 97 Room Air 97.9 08/05/17 08:00 66 08/05/17 07:56 63 16 Room Air 21 08/05/17 04:00 97.5 76 20 179/95 98 Room Air 97.5 08/05/17 04:00 52 08/05/17 00:00 97.6 62 18 159/78 96 Room Air 97.6 08/05/17 00:00 64 08/04/17 21:44 138/77 08/04/17 20:00 78 08/04/17 20:00 97.7 77 20 160/71 98 Room Air 97.7 08/04/17 19:57 79 20 Room Air 21 08/04/17 16:30 97.5 79 20 152/90 97 Room Air 97.5 08/04/17 16:00 77 Intake and Output 08/04/17 08/05/17 19:00 07:00 Intake Total 1230 ml 240 ml Output Total 1900 ml 200 ml Balance -670 ml 40 ml Intake Oral 1230 ml 240 ml Output Urine Total 1900 ml 200 ml # Bowel Movements 1 Laboratory Tests 08/05/17 05:00: White Blood Count 8.5, Red Blood Count 4.40, Hemoglobin 13.0, Hematocrit 39.3, Mean Corpuscular Volume 89, Mean Corpuscular Hemoglobin 29.4, Mean Corpuscular Hemoglobin Concent 32.9, Red Cell Distribution Width 13.7, Platelet Count 252, Mean Platelet Volume 9.3, Neutrophils (%) (Auto) 66.2, Lymphocytes (%) (Auto) 23.5, Monocytes (%) (Auto) 7.1, Eosinophils (%) (Auto) 2.3, Basophils (%) (Auto ) 1.0, Sodium Level 140, Potassium Level 4.1, Chloride Level 104, Carbon Dioxide Level 28, Anion Gap 8, Blood Urea Nitrogen 30H, Creatinine 1.4H, Estimat Glomerular Filtration Rate , Glucose Level 110H, Calcium Level 9.1 Height (Feet): 5 Height (Inches): 5.00 Weight (Pounds): 185 General Appearance: WD/WN, no apparent distress, alert Neurologic: oriented x 3, depressed affect El Marcial M.D. August 05, 2017 12:27
--- NOTE | 2017-08-05 14:01 | Cardiology Report ---
APPROVED REPORT EKG Measurement Heart [id number] [place] [id number] Sinus bradycardia Right bundle branch block Left anterior fascicular block Bifascicular block T wave abnormality, consider lateral ischemia Abnormal ECG
--- NOTE | 2017-08-05 14:07 | General Progress Note ---
Assessment/Plan Problem List: (1) Hypoxia ICD Codes: R09.02 - Hypoxemia SNOMED: 652301172 (2) Diabetes ICD Codes: E11.9 - Type 2 diabetes mellitus without complications SNOMED: 39652100 (3) Bradycardia ICD Codes: R00.1 - Bradycardia, unspecified SNOMED: 20939381 (4) Bronchospasm ICD Codes: J98.01 - Acute bronchospasm SNOMED: 6850858 (5) GERD (gastroesophageal reflux disease) ICD Codes: K21.9 - Gastro-esophageal reflux disease without esophagitis SNOMED: 609620219 Status: unchanged Assessment/Plan o2 pulm tx abx ot pt diet cbc bmp am transfer to [facility] per family request Subjective Constitutional: Reports: weakness Allergies: Coded Allergies: CODEINE (Verified Allergy, Unknown, 07/29/17) EGG (Verified Allergy, Unknown, 07/29/17) LISINOPRIL (Verified Allergy, Unknown, 07/29/17) MILK (Verified Allergy, Unknown, 07/29/17) PENICILLINS (Verified Allergy, Unknown, 07/29/17) All Systems: reviewed and negative except above Subjective sleepy calm in bed Objective Last 24 Hour Vital Signs Date Time Temp Pulse Resp B/P (MAP) Pulse Ox O2 Delivery O2 Flow Rate FiO2 08/05/17 12:00 68 08/05/17 09:00 68 159/79 08/05/17 08:00 97.9 68 17 159/79 97 Room Air 97.9 08/05/17 08:00 66 08/05/17 07:56 63 16 Room Air 21 08/05/17 04:00 97.5 76 20 179/95 98 Room Air 97.5 08/05/17 04:00 52 08/05/17 00:00 97.6 62 18 159/78 96 Room Air 97.6 08/05/17 00:00 64 08/04/17 21:44 138/77 08/04/17 20:00 78 08/04/17 20:00 97.7 77 20 160/71 98 Room Air 97.7 08/04/17 19:57 79 20 Room Air 21 08/04/17 16:30 97.5 79 20 152/90 97 Room Air 97.5 08/04/17 16:00 77 Intake and Output 08/04/17 08/05/17 19:00 07:00 Intake Total 1230 ml 240 ml Output Total 1900 ml 200 ml Balance -670 ml 40 ml Intake Oral 1230 ml 240 ml Output Urine Total 1900 ml 200 ml # Bowel Movements 1 Laboratory Tests 08/05/17 05:00: White Blood Count 8.5, Red Blood Count 4.40, Hemoglobin 13.0, Hematocrit 39.3, Mean Corpuscular Volume 89, Mean Corpuscular Hemoglobin 29.4, Mean Corpuscular Hemoglobin Concent 32.9, Red Cell Distribution Width 13.7, Platelet Count 252, Mean Platelet Volume 9.3, Neutrophils (%) (Auto) 66.2, Lymphocytes (%) (Auto) 23.5, Monocytes (%) (Auto) 7.1, Eosinophils (%) (Auto) 2.3, Basophils (%) (Auto ) 1.0, Sodium Level 140, Potassium Level 4.1, Chloride Level 104, Carbon Dioxide Level 28, Anion Gap 8, Blood Urea Nitrogen 30H, Creatinine 1.4H, Estimat Glomerular Filtration Rate , Glucose Level 110H, Calcium Level 9.1 Height (Feet): 5 Height (Inches): 5.00 Weight (Pounds): 185 General Appearance: lethargic EENT: PERRL/EOMI Neck: normal alignment Cardiovascular: normal peripheral pulses, normal rate, regular rhythm Respiratory/Chest: chest wall non-tender, lungs clear, normal breath sounds Abdomen: normal bowel sounds, non tender, soft Extremities: normal inspection Edema: no edema noted Arm (L), no edema noted Arm (R), no edema noted Leg (L), no edema noted Leg (R), no edema noted Pedal (L), no edema noted Pedal (R), no edema noted Generalized Neurologic: motor weakness Skin: normal pigmentation, warm/dry Anderson Molina DO August 05, 2017 14:07
[2017-08-05 16:00] VITALS: BP 113/66
--- NOTE | 2017-08-05 16:04 | Cardiac Electrophysiology PN ---
Assessment/Plan Assessment/Plan 1. Episode of intermittent complete heart block. In sinus rhythm with complete LBBB and RBBB and left anterior fascicular block. These EKGs are of documentation of intermittent complete right bundle and complete left bundle as well as episodes of 2:1 AV block and Mobitz type 2 heart block are classical indication for permanent pacemaker implantation. Wants to go for PPM to [facility]. 2. 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 Likely induced by bradycardia in the setting of QT prolonging agents as the patient is on Zyprexa as well as Haldol and Levaquin that all can prolong the QT. All these agents were discontinued. We will watch the patient on telemetry. If all these episodes of polymorphic VT resolve off of her precipitating agents in the setting of normal left ventricular systolic function and no prior myocardial infarction or coronary artery disease, she would need permanent pacemaker implantation. No further polymorphic ventricular tachycardias overnight. The other issue is that we cannot put her on any antiarrhythmics like amiodarone as the patient already has intermittent complete heart block with profound bradycardia. 3. Chronic obstructive pulmonary disease exacerbation and asymptomatic bacteriuria. Levoquin DCed. 4. Dementia with behavioral issues. Off All psychoactive meds now. DW Dr. Tubbs and RN Subjective Subjective No further PMVT or Torsades. Patient and family want to go to [facility] for pacer implant Objective Last 24 Hour Vital Signs Date Time Temp Pulse Resp B/P (MAP) Pulse Ox O2 Delivery O2 Flow Rate FiO2 08/05/17 12:00 97.9 76 18 148/68 98 Room Air 97.9 08/05/17 12:00 68 08/05/17 09:00 68 159/79 08/05/17 08:00 97.9 68 17 159/79 97 Room Air 97.9 08/05/17 08:00 66 08/05/17 07:56 63 16 Room Air 21 08/05/17 04:00 97.5 76 20 179/95 98 Room Air 97.5 08/05/17 04:00 52 08/05/17 00:00 97.6 62 18 159/78 96 Room Air 97.6 08/05/17 00:00 64 08/04/17 21:44 138/77 08/04/17 20:00 78 08/04/17 20:00 97.7 77 20 160/71 98 Room Air 97.7 08/04/17 19:57 79 20 Room Air 21 08/04/17 16:30 97.5 79 20 152/90 97 Room Air 97.5 08/04/17 16:00 77 Intake and Output 08/04/17 08/05/17 19:00 07:00 Intake Total 1230 ml 240 ml Output Total 1900 ml 200 ml Balance -670 ml 40 ml Intake Oral 1230 ml 240 ml Output Urine Total 1900 ml 200 ml # Bowel Movements 1 Laboratory Tests Test 08/05/17 05:00 White Blood Count 8.5 K/UL (4.8-10.8) Red Blood Count 4.40 M/UL (4.20-5.40) Hemoglobin 13.0 G/DL (12.0-16.0) Hematocrit 39.3 % (37.0-47.0) Mean Corpuscular Volume 89 FL (80-99) Mean Corpuscular Hemoglobin 29.4 PG (27.0-31.0) Mean Corpuscular Hemoglobin Concent 32.9 G/DL (32.0-36.0) Red Cell Distribution Width 13.7 % (11.6-14.8) Platelet Count 252 K/UL (150-450) Mean Platelet Volume 9.3 FL (6.5-10.1) Neutrophils (%) (Auto) 66.2 % (45.0-75.0) Lymphocytes (%) (Auto) 23.5 % (20.0-45.0) Monocytes (%) (Auto) 7.1 % (1.0-10.0) Eosinophils (%) (Auto) 2.3 % (0.0-3.0) Basophils (%) (Auto) 1.0 % (0.0-2.0) Sodium Level 140 MMOL/L (136-145) Potassium Level 4.1 MMOL/L (3.5-5.1) Chloride Level 104 MMOL/L (98-107) Carbon Dioxide Level 28 MMOL/L (21-32) Anion Gap 8 mmol/L (5-15) Blood Urea Nitrogen 30 mg/dL (7-18) H Creatinine 1.4 MG/DL (0.55-1.30) H Estimat Glomerular Filtration Rate mL/min (>60) Glucose Level 110 MG/DL (74-106) H Calcium Level 9.1 MG/DL (8.5-10.1) Objective HEAD AND NECK: No JVD or carotid bruit. LUNGS: Clear. CARDIOVASCULAR: Regular S1 and S2 with no gallop or murmur. ABDOMEN: Soft. EXTREMITIES: No pitting edema. Dontrell Lilly MD August 05, 2017 16:04
[2017-08-05 20:00] VITALS: BP 128/65
[2017-08-05] MEDS: Miralax 17gm pkt ORAL SCH (20:51)
[2017-08-05] MEDS: Losartan 50mg tab ORAL SCH (20:51)
[2017-08-06] VITALS: BP 139/68
[2017-08-06 04:00] VITALS: BP 145/73
[2017-08-06 05:20] LABS: ALANINE AMINOTRANSFERASE 19 U/L (12-78); ALBUMIN 2.9 G/DL (3.4-5.0); ALBUMIN/GLOBULIN RATIO 0.7 (1.0-2.7); ALKALINE PHOSPHATASE 66 U/L (46-116); ANION GAP 9 mmol/L (5-15); ASPARTATE AMINO TRANSFERASE 18 U/L (15-37); BILIRUBIN,TOTAL 0.3 MG/DL (0.2-1.0); BLOOD UREA NITROGEN 36 mg/dL (7-18); CALCIUM 9.2 MG/DL (8.5-10.1); CARBON DIOXIDE 25 MMOL/L (21-32); CHLORIDE 105 MMOL/L (98-107); CREATININE 1.4 MG/DL (0.55-1.30); POTASSIUM 4.9 MMOL/L (3.5-5.1); SODIUM 139 MMOL/L (136-145)
[2017-08-06 05:35] LABS: PHOSPHORUS 4.1 MG/DL (2.5-4.9)
[2017-08-06] MEDS: NovoLOG Insulin Flexpen SUBQ SCH ×4 (06:17→22:38)
[2017-08-06 08:00] VITALS: BP 146/68
[2017-08-06 08:36] LABS: BASOPHILS % (AUTO) 1.4 % (0.0-2.0); EOSINOPHILS % (AUTO) 2.6 % (0.0-3.0); HEMATOCRIT 38.6 % (37.0-47.0); HEMOGLOBIN 12.3 G/DL (12.0-16.0); LYMPHOCYTES % (AUTO) 21.3 % (20.0-45.0); MEAN CORPUSCULAR VOLUME 90 FL (80-99); MONOCYTES % (AUTO) 6.6 % (1.0-10.0); NEUTROPHILS % (AUTO) 68.2 % (45.0-75.0); PLATELET COUNT 262 K/UL (150-450); RED BLOOD COUNT 4.29 M/UL (4.20-5.40); WHITE BLOOD COUNT 10.1 K/UL (4.8-10.8)
[2017-08-06] MEDS: Sucralfate 1gm tab ORAL SCH ×3 (09:28→18:51)
[2017-08-06] MEDS: Docusate 100mg cap ORAL SCH ×3 (09:28→22:15)
[2017-08-06] MEDS: Theophylline ER 100mg ORAL SCH ×2 (09:29→22:15)
[2017-08-06] MEDS: Heparin 5000 units/ml inj SUBQ SCH ×2 (09:30→22:21)
--- NOTE | 2017-08-06 09:41 | Infectious Diseases Prog Note ---
Assessment/Plan Assessment/Plan ASSESSMENT: The patient is an 87-year-old female with, COPD exacerbation, no Pna Chest x-ray, NAPD. UCx : E. Coli asymptomatic bacteriuria. 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 Osteoarthritis. Hyperlipidemia. GERD/Barcenas esophagitis. History of asthma PLAN: monitor pt off of AB Rx; ok to discharge to [facility] for PPM placement 08/01 SP Levaquin day # Monitor CBC. Monitor BMP Cardio fup requires pacemaker implantation; plan to be done at [facility] Discussed with RN. Subjective Allergies: Coded Allergies: CODEINE (Verified Allergy, Unknown, 07/29/17) EGG (Verified Allergy, Unknown, 07/29/17) LISINOPRIL (Verified Allergy, Unknown, 07/29/17) MILK (Verified Allergy, Unknown, 07/29/17) PENICILLINS (Verified Allergy, Unknown, 07/29/17) Subjective afebrile no leukocytosis off abx Objective Vital Signs Last 24 Hour Vital Signs Date Time Temp Pulse Resp B/P (MAP) Pulse Ox O2 Delivery O2 Flow Rate FiO2 08/06/17 09:29 63 146/68 08/06/17 08:00 98.0 63 21 146/68 98 Room Air 98.0 08/06/17 04:00 52 08/06/17 04:00 97.7 59 20 145/73 99 Room Air 97.7 08/06/17 00:06 56 08/06/17 00:00 98.2 60 20 139/68 99 Room Air 98.2 08/05/17 20:51 128/65 08/05/17 20:10 77 16 Room Air 21 08/05/17 20:00 98.4 70 20 128/65 99 Room Air 98.4 08/05/17 19:27 67 08/05/17 16:00 97.8 74 19 113/66 97 Room Air 97.8 08/05/17 16:00 75 08/05/17 12:00 97.9 76 18 148/68 98 Room Air 97.9 08/05/17 12:00 68 Height (Feet): 5 Height (Inches): 5.00 Weight (Pounds): 189 Objective General Appearance: WD/WN, no apparent distress, alert, obese Cardiovascular: normal rate Respiratory/Chest: normal breath sounds, no respiratory distress Abdominal Exam: normal bowel sounds, non tender, soft Extremities: normal range of motion, non-tender Laboratory Tests Test 08/06/17 04:30 08/06/17 08:15 Sodium Level 139 MMOL/L (136-145) Potassium Level 4.9 MMOL/L (3.5-5.1) Chloride Level 105 MMOL/L (98-107) Carbon Dioxide Level 25 MMOL/L (21-32) Anion Gap 9 mmol/L (5-15) Blood Urea Nitrogen 36 mg/dL (7-18) H Creatinine 1.4 MG/DL (0.55-1.30) H Estimat Glomerular Filtration Rate mL/min (>60) Glucose Level 126 MG/DL (74-106) H Calcium Level 9.2 MG/DL (8.5-10.1) Phosphorus Level 4.1 MG/DL (2.5-4.9) Magnesium Level 2.2 MG/DL (1.8-2.4) Total Bilirubin 0.3 MG/DL (0.2-1.0) Aspartate Amino Transf (AST/SGOT) 18 U/L (15-37) Alanine Aminotransferase (ALT/SGPT) 19 U/L (12-78) Alkaline Phosphatase 66 U/L (46-116) Total Protein 6.9 G/DL (6.4-8.2) Albumin 2.9 G/DL (3.4-5.0) L Globulin 4.0 g/dL Albumin/Globulin Ratio 0.7 (1.0-2.7) L White Blood Count 10.1 K/UL (4.8-10.8) Red Blood Count 4.29 M/UL (4.20-5.40) Hemoglobin 12.3 G/DL (12.0-16.0) Hematocrit 38.6 % (37.0-47.0) Mean Corpuscular Volume 90 FL (80-99) Mean Corpuscular Hemoglobin 28.7 PG (27.0-31.0) Mean Corpuscular Hemoglobin Concent 31.8 G/DL (32.0-36.0) L Red Cell Distribution Width 14.0 % (11.6-14.8) Platelet Count 262 K/UL (150-450) Mean Platelet Volume 10.1 FL (6.5-10.1) Neutrophils (%) (Auto) 68.2 % (45.0-75.0) Lymphocytes (%) (Auto) 21.3 % (20.0-45.0) Monocytes (%) (Auto) 6.6 % (1.0-10.0) Eosinophils (%) (Auto) 2.6 % (0.0-3.0) Basophils (%) (Auto) 1.4 % (0.0-2.0) Current Medications Medications (Trade) Dose Ordered Sig/Edgar Route PRN Reason Start Time Stop Time Status Last Admin Dose Admin Albuterol/ Ipratropium (Albuterol/ Ipratropium) 3 ml Q4H PRN HHN dyspnea 08/02/17 17:26 08/07/17 17:25 Amlodipine Besylate (Norvasc) 5 mg DAILY ORAL 08/04/17 09:00 09/03/17 08:59 08/06/17 09:29 Baclofen (Lioresal) 5 mg THREE TIMES A DAY ORAL 08/02/17 18:00 08/28/17 12:59 08/06/17 09:28 Dextrose (Dextrose 50%) 25 ml STAT PRN IV Hypoglycemia 08/02/17 17:26 09/01/17 17:25 Dextrose (Dextrose 50%) 50 ml STAT PRN IV Hypoglycemia 08/02/17 17:26 09/01/17 17:25 Docusate Sodium (Colace) 100 mg EVERY 12 HOURS ORAL 08/03/17 21:00 08/28/17 17:59 08/06/17 09:28 Gabapentin (Neurontin) 300 mg THREE TIMES A DAY ORAL 08/02/17 18:00 08/28/17 12:59 08/06/17 09:28 Heparin Sodium (Porcine) (Heparin 5000 units/ml) 5,000 units EVERY 12 HOURS SUBQ 08/02/17 21:00 08/28/17 10:59 08/06/17 09:30 Hydralazine HCl (Apresoline) 50 mg Q6H PRN ORAL SBP > 160mmHg 08/04/17 08:00 09/03/17 07:59 Insulin Aspart (NovoLOG) BEFORE MEALS AND HS SUBQ 08/02/17 21:00 08/29/17 11:29 08/06/17 06:17 Losartan Potassium (Cozaar) 100 mg BEDTIME ORAL 08/02/17 21:00 08/28/17 20:59 08/05/17 20:51 Mineral Oil (Fleet's Mineral Oil Enema) 133 ml DAILYPRN PRN RECTAL CONSTIPATION 08/02/17 17:30 09/01/17 17:29 Nitroglycerin (Ntg) 0.4 mg Q5M X 3 DOSES PRN SL Prn Chest Pain 08/02/17 17:30 08/28/17 08:59 Ondansetron HCl (Zofran) 4 mg Q6H PRN IVP Nausea & Vomiting 08/02/17 17:30 08/28/17 17:29 Pantoprazole (Protonix) 40 mg BID ORAL 08/02/17 18:00 08/28/17 11:14 08/06/17 09:29 Polyethylene Glycol (Miralax) 17 gm BEDTIME ORAL 08/02/17 21:00 08/28/17 20:59 08/05/17 20:51 Prednisone (predniSONE) 40 mg Taper DAILY ORAL 08/04/17 09:00 08/10/17 08:59 08/06/17 09:29 Sucralfate (Carafate) 1 gm THREE TIMES A DAY ORAL 08/02/17 18:00 08/28/17 12:59 08/06/17 09:28 Temazepam (Restoril) 15 mg HSPRN PRN ORAL Insomnia 08/02/17 21:00 08/09/17 20:59 Theophylline (Sean-Dur) 100 mg EVERY 12 HOURS ORAL 08/02/17 21:00 08/28/17 11:14 08/06/17 09:29 Beulah Vega M.D. August 06, 2017 09:41
--- NOTE | 2017-08-06 11:32 | Pulmonology Progress Note ---
Assessment/Plan Problems: (1) Acute asthma exacerbation (2) Pulmonary edema (3) Bradycardia (4) History of asthma (5) History of hypertension Assessment/Plan sinus rhythm now respiratory treatment titrate fio2 to sat of 92% sputum induction echo reviewed: EF 60%, moderate pulmonary hypertension dvt prophylaxis awaiting pacemaker insertion family wants to transfer to [facility] for pacemaker All medications and treatment were reviewed. and All medications reconciliation completed Subjective ROS Limited/Unobtainable: No Constitutional: Reports: no symptoms HEENT: Repors: no symptoms Respiratory: Reports: no symptoms Allergies: Coded Allergies: CODEINE (Verified Allergy, Unknown, 07/29/17) EGG (Verified Allergy, Unknown, 07/29/17) LISINOPRIL (Verified Allergy, Unknown, 07/29/17) MILK (Verified Allergy, Unknown, 07/29/17) PENICILLINS (Verified Allergy, Unknown, 07/29/17) Objective Last 24 Hour Vital Signs Date Time Temp Pulse Resp B/P (MAP) Pulse Ox O2 Delivery O2 Flow Rate FiO2 08/06/17 09:29 63 146/68 08/06/17 08:00 57 08/06/17 08:00 98.0 63 21 146/68 98 Room Air 98.0 08/06/17 07:50 61 16 Room Air 21 08/06/17 04:00 52 08/06/17 04:00 97.7 59 20 145/73 99 Room Air 97.7 08/06/17 00:06 56 08/06/17 00:00 98.2 60 20 139/68 99 Room Air 98.2 08/05/17 20:51 128/65 08/05/17 20:10 77 16 Room Air 21 08/05/17 20:00 98.4 70 20 128/65 99 Room Air 98.4 08/05/17 19:27 67 08/05/17 16:00 97.8 74 19 113/66 97 Room Air 97.8 08/05/17 16:00 75 08/05/17 12:00 97.9 76 18 148/68 98 Room Air 97.9 08/05/17 12:00 68 Intake and Output 08/05/17 08/06/17 19:00 07:00 Intake Total 600 ml 120 ml Output Total 800 ml 600 ml Balance -200 ml -480 ml Intake Oral 600 ml 120 ml Output Urine Total 800 ml 600 ml # Bowel Movements 1 General Appearance: WD/WN HEENT: normocephalic Respiratory/Chest: chest wall non-tender, lungs clear Breasts: no masses Cardiovascular: normal peripheral pulses Abdomen: normal bowel sounds, soft, non tender Genitourinary: normal external genitalia Skin: no rash Laboratory Tests 08/06/17 04:30: Sodium Level 139, Potassium Level 4.9, Chloride Level 105, Carbon Dioxide Level 25, Anion Gap 9, Blood Urea Nitrogen 36H, Creatinine 1.4H, Estimat Glomerular Filtration Rate , Glucose Level 126H, Calcium Level 9.2, Phosphorus Level 4.1, Magnesium Level 2.2, Total Bilirubin 0.3, Aspartate Amino Transf (AST/SGOT) 18, Alanine Aminotransferase (ALT/SGPT) 19, Alkaline Phosphatase 66, Total Protein 6.9, Albumin 2.9L, Globulin 4.0, Albumin/Globulin Ratio 0.7L 08/06/17 08:15: White Blood Count 10.1, Red Blood Count 4.29, Hemoglobin 12.3, Hematocrit 38.6, Mean Corpuscular Volume 90, Mean Corpuscular Hemoglobin 28.7, Mean Corpuscular Hemoglobin Concent 31.8L, Red Cell Distribution Width 14.0, Platelet Count 262, Mean Platelet Volume 10.1, Neutrophils (%) (Auto) 68.2, Lymphocytes (%) (Auto) 21.3, Monocytes (%) (Auto) 6.6, Eosinophils (%) (Auto) 2.6, Basophils (%) (Auto ) 1.4 Current Medications Medications (Trade) Dose Ordered Sig/Edgar Route PRN Reason Start Time Stop Time Status Last Admin Dose Admin Albuterol/ Ipratropium (Albuterol/ Ipratropium) 3 ml Q4H PRN HHN dyspnea 08/02/17 17:26 08/07/17 17:25 Amlodipine Besylate (Norvasc) 5 mg DAILY ORAL 08/04/17 09:00 09/03/17 08:59 08/06/17 09:29 Baclofen (Lioresal) 5 mg THREE TIMES A DAY ORAL 08/02/17 18:00 08/28/17 12:59 08/06/17 09:28 Dextrose (Dextrose 50%) 25 ml STAT PRN IV Hypoglycemia 08/02/17 17:26 09/01/17 17:25 Dextrose (Dextrose 50%) 50 ml STAT PRN IV Hypoglycemia 08/02/17 17:26 09/01/17 17:25 Docusate Sodium (Colace) 100 mg EVERY 12 HOURS ORAL 08/03/17 21:00 08/28/17 17:59 08/06/17 09:28 Gabapentin (Neurontin) 300 mg THREE TIMES A DAY ORAL 08/02/17 18:00 08/28/17 12:59 08/06/17 09:28 Heparin Sodium (Porcine) (Heparin 5000 units/ml) 5,000 units EVERY 12 HOURS SUBQ 08/02/17 21:00 08/28/17 10:59 08/06/17 09:30 Hydralazine HCl (Apresoline) 50 mg Q6H PRN ORAL SBP > 160mmHg 08/04/17 08:00 09/03/17 07:59 Insulin Aspart (NovoLOG) BEFORE MEALS AND HS SUBQ 08/02/17 21:00 08/29/17 11:29 08/06/17 06:17 Losartan Potassium (Cozaar) 100 mg BEDTIME ORAL 08/02/17 21:00 08/28/17 20:59 08/05/17 20:51 Mineral Oil (Fleet's Mineral Oil Enema) 133 ml DAILYPRN PRN RECTAL CONSTIPATION 08/02/17 17:30 09/01/17 17:29 Nitroglycerin (Ntg) 0.4 mg Q5M X 3 DOSES PRN SL Prn Chest Pain 08/02/17 17:30 08/28/17 08:59 Ondansetron HCl (Zofran) 4 mg Q6H PRN IVP Nausea & Vomiting 08/02/17 17:30 08/28/17 17:29 Pantoprazole (Protonix) 40 mg BID ORAL 08/02/17 18:00 08/28/17 11:14 08/06/17 09:29 Polyethylene Glycol (Miralax) 17 gm BEDTIME ORAL 08/02/17 21:00 08/28/17 20:59 08/05/17 20:51 Prednisone (predniSONE) 40 mg Taper DAILY ORAL 08/04/17 09:00 08/10/17 08:59 08/06/17 09:29 Sucralfate (Carafate) 1 gm THREE TIMES A DAY ORAL 08/02/17 18:00 08/28/17 12:59 08/06/17 09:28 Temazepam (Restoril) 15 mg HSPRN PRN ORAL Insomnia 08/02/17 21:00 08/09/17 20:59 Theophylline (Sean-Dur) 100 mg EVERY 12 HOURS ORAL 08/02/17 21:00 08/28/17 11:14 08/06/17 09:29 Sherri Phillips MD August 06, 2017 11:32
[2017-08-06 12:00] VITALS: BP 144/65
--- NOTE | 2017-08-06 14:35 | General Progress Note ---
Assessment/Plan Problem List: (1) Hypoxia ICD Codes: R09.02 - Hypoxemia SNOMED: 705652759 (2) Diabetes ICD Codes: E11.9 - Type 2 diabetes mellitus without complications SNOMED: 04348524 (3) Bradycardia ICD Codes: R00.1 - Bradycardia, unspecified SNOMED: 57461921 (4) Bronchospasm ICD Codes: J98.01 - Acute bronchospasm SNOMED: 6290681 (5) GERD (gastroesophageal reflux disease) ICD Codes: K21.9 - Gastro-esophageal reflux disease without esophagitis SNOMED: 697179196 Status: unchanged Assessment/Plan o2 pulm tx abx ot pt diet cbc bmp [facility] family [facility] Subjective Constitutional: Reports: weakness Allergies: Coded Allergies: CODEINE (Verified Allergy, Unknown, 07/29/17) EGG (Verified Allergy, Unknown, 07/29/17) LISINOPRIL (Verified Allergy, Unknown, 07/29/17) MILK (Verified Allergy, Unknown, 07/29/17) PENICILLINS (Verified Allergy, Unknown, 07/29/17) All Systems: reviewed and negative except above Subjective sleepy calm in bed Objective Last 24 Hour Vital Signs Date Time Temp Pulse Resp B/P (MAP) Pulse Ox O2 Delivery O2 Flow Rate FiO2 08/06/17 12:00 61 08/06/17 12:00 97.2 65 20 144/65 97 Room Air 97.2 08/06/17 09:29 63 146/68 08/06/17 08:00 57 08/06/17 08:00 98.0 63 21 146/68 98 Room Air 98.0 08/06/17 07:50 61 16 Room Air 21 08/06/17 04:00 52 08/06/17 04:00 97.7 59 20 145/73 99 Room Air 97.7 08/06/17 00:06 56 08/06/17 00:00 98.2 60 20 139/68 99 Room Air 98.2 08/05/17 20:51 128/65 08/05/17 20:10 77 16 Room Air 21 08/05/17 20:00 98.4 70 20 128/65 99 Room Air 98.4 08/05/17 19:27 67 08/05/17 16:00 97.8 74 19 113/66 97 Room Air 97.8 08/05/17 16:00 75 Intake and Output 08/05/17 08/06/17 19:00 07:00 Intake Total 600 ml 120 ml Output Total 800 ml 600 ml Balance -200 ml -480 ml Intake Oral 600 ml 120 ml Output Urine Total 800 ml 600 ml # Bowel Movements 1 Laboratory Tests 08/06/17 04:30: Sodium Level 139, Potassium Level 4.9, Chloride Level 105, Carbon Dioxide Level 25, Anion Gap 9, Blood Urea Nitrogen 36H, Creatinine 1.4H, Estimat Glomerular Filtration Rate , Glucose Level 126H, Calcium Level 9.2, Phosphorus Level 4.1, Magnesium Level 2.2, Total Bilirubin 0.3, Aspartate Amino Transf (AST/SGOT) 18, Alanine Aminotransferase (ALT/SGPT) 19, Alkaline Phosphatase 66, Total Protein 6.9, Albumin 2.9L, Globulin 4.0, Albumin/Globulin Ratio 0.7L 08/06/17 08:15: White Blood Count 10.1, Red Blood Count 4.29, Hemoglobin 12.3, Hematocrit 38.6, Mean Corpuscular Volume 90, Mean Corpuscular Hemoglobin 28.7, Mean Corpuscular Hemoglobin Concent 31.8L, Red Cell Distribution Width 14.0, Platelet Count 262, Mean Platelet Volume 10.1, Neutrophils (%) (Auto) 68.2, Lymphocytes (%) (Auto) 21.3, Monocytes (%) (Auto) 6.6, Eosinophils (%) (Auto) 2.6, Basophils (%) (Auto ) 1.4 Height (Feet): 5 Height (Inches): 5.00 Weight (Pounds): 189 General Appearance: lethargic EENT: normal ENT inspection Neck: normal alignment Cardiovascular: normal peripheral pulses, normal rate, regular rhythm Respiratory/Chest: chest wall non-tender, decreased breath sounds Abdomen: normal bowel sounds, non tender, soft Extremities: normal inspection Edema: no edema noted Arm (L), no edema noted Arm (R), no edema noted Leg (L), no edema noted Leg (R), no edema noted Pedal (L), no edema noted Pedal (R), no edema noted Generalized Neurologic: motor weakness Skin: normal pigmentation, warm/dry Anderson MolinaDede DO August 06, 2017 14:35
--- NOTE | 2017-08-06 15:11 | Discharge Summary ---
Discharge Summary Discharge Summary _ DATE OF ADMISSION: 07/29/2017 DATE OF DISCHARGE: 08/06/2017 REASON FOR ADMISSION: 88 years old female with past medical history of asthma, angina, hyperlipidemia ,hypertension, osteoarthritis, GERD, Barcenas esophagitis , presented to emergency department for cough. Patient reported that she heard herself wheezing. No fever, no phlegm production, no chest pain, but reported chest tightness. She used nebulizer at home without significant relief. She denied fever, nausea ,vomiting ,diarrhea, dysuria, no dyspnea on exertion. CVital signs revealed no fever; pulse oximetry was stable on room air. No leukocytosis , mild anemia hemoglobin 10.7, hematocrit 32.4. Lactic acid 2.5. Electrolytes and renal parameters stable. Troponin negative. Pro BNP 1366. Chest x-ray revealed cardiomegaly and mild interstitial edema/CHF. Patchy bibasilar opacities likely related to bronchovascular crowding/interstitial edema. Possibility of superimposed pneumonia was not entirely excluded. Urinalysis was consistent with evidence of UTI . EKG showed sinus bradycardia with left bundle branch block, no acute ischemic changes. Patient at home was using beta micky and calcium channel micky. Patient was given glucagon 1 mg and repeated with 2 mg with minimal improvement in heart rate. However, she was able to tolerate slow heart rate without distress Pacer pads were placed. Patient was given nebulizing treatment with bronchodilator. Patient was admitted to telemetry floor for further management with diagnosis of asthma exacerbation, pulmonary edema, urinary tract infection , bradycardia, hypertension CONSULTANTS: management analyst Dr. Lilly neurologist Dr. Demarco pulmonary Dr. Phillips ID specialist Dr. Reyes GI specialist psychiatrist Dr. Marcial [facility]SE: Patient admitted to [facility]. AV micky agents were stopped. Cardiology and pulmonology consults were requested. Patient was on short course of IV steroids which gradually tapered down and switched to oral steroids. Supplemental oxygen provided as needed to keep pulse oximetry above 92%. Pulmonary toilet with bronchodilators was provided around the clock and as needed. Chest physical therapy provided with hand held nebulizing. Trial of theophylline started. Patient started on empiric antibiotic. Sputum culture was not collected since cough was dry. Follow-up chest x-ray revealed no acute process. System Manager closely followed .Patient demonstrated intermittent episodes of complete heart block on telemetry. System Manager recommended pacemaker implantation for AV shireen disease progressing to complete heart block intermittently. Echocardiogram revealed preserved ejection fraction of 60-65%, mild left ventricular hypertrophy, right ventricular systolic pressure of 43 consistent with moderate pulmonary hypertension. Patient demonstrated multiply long runs of polymorphic ventricular tachycardia and torsade, likely induced by bradycardia in the setting of QT prolonging agents such as Zyprexa and Haldol. These medications were stopped. . Patient was watched continuously on telemetry. The challenge was , that the patient was not be able to be put on antiarrhythmic like amiodarone as the patient already had intermittent complete heart block with profound bradycardia. Blood pressure was managed with the angiotensin receptor micky and was stable. Psychiatrist seen and evaluated patient. As per psychiatrist ,patient lacks capacity to make an informed decision. Per psychiatrist, next to kin should make an informed decision regarding pacemaker. Family requested transfer patient to [facility] where her primary care provider is. Patient was placed on the waiting list for [address] Gastrointestinal specialist closely followed. CT of the abdomen and pelvis revealed mild rectal distention , probable mild rectal fecal impaction. No definite acute process otherwise. It also revealed diverticulosis without evidence of diverticulitis. Fatty liver. Stool for occult blood was negative. Hemoglobin and hematocrit were closely monitored with goal to keep hemoglobin above 8. Patient started on PPI and Carafate. Bowel regimen instituted. Patient had bowel movement. Neurologist closely followed. Per neurologist, patient history and neurological examination were most compatible with a possible cervical and lumbosacral spine disease with weakness, in addition possibly cerebrovascular event few years ago. Patient daughter decline brain imaging, therefore it was unclear as to if the patient had strokein the past.. Carotid duplex was benign, no significant stenosis. Infectious disease doctor closely followed. Urine culture was positive for Escherichia coli, however patient had no urinary complaints. Per GI specialist patient had asymptomatic bacteriuria, no need to treat. Blood sugar was managed with sliding scale of insulin. Patient was working with physical and occupational therapists. Supportive care provided. Bed became available at [facility]. Patient was stable for transfer via [facility] . Patient was cleared by all consultants. 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 DISCHARGE INSTRUCTIONS: Patient was transferred to [facility] via [facility] Trinh Gonsalves NP August 06, 2017 15:11
[2017-08-06 16:00] VITALS: BP 152/67
--- NOTE | 2017-08-06 16:06 | GI Progress Note ---
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 Chao. Assessment/Plan CT AP reviewed, see full report. - mild rectal fecal impaction. - No definite acute process otherwise. - Diverticulosis. No evidence of diverticulitis - Fatty liver - Multiple well circumscribed renal masses. anemia work up reviewed OB stool negative fu cardiology recs for possible pacemaker >> refuses, wants to be transferred to [facility] ok for DC per GI standpoint regular diet cont ppi BID + carafate monitor H&H, prn transfusions bowel regime >> colace + miralax, mineral oil enema prn ppi fu labs The patient was seen and examined at bedside and all new and available data was reviewed in the patients chart. I agree with the above findings, impression and plan. (Patient seen earlier today. Signature stamp does not reflect patient encounter time.). - Cam Chao MD Subjective Subjective limited, agitated wants to go home Objective Last 24 Hour Vital Signs Date Time Temp Pulse Resp B/P (MAP) Pulse Ox O2 Delivery O2 Flow Rate FiO2 08/06/17 12:00 61 08/06/17 12:00 97.2 65 20 144/65 97 Room Air 97.2 08/06/17 09:29 63 146/68 08/06/17 08:00 57 08/06/17 08:00 98.0 63 21 146/68 98 Room Air 98.0 08/06/17 07:50 61 16 Room Air 21 08/06/17 04:00 52 08/06/17 04:00 97.7 59 20 145/73 99 Room Air 97.7 08/06/17 00:06 56 08/06/17 00:00 98.2 60 20 139/68 99 Room Air 98.2 08/05/17 20:51 128/65 08/05/17 20:10 77 16 Room Air 21 08/05/17 20:00 98.4 70 20 128/65 99 Room Air 98.4 08/05/17 19:27 67 Intake and Output 08/05/17 08/06/17 19:00 07:00 Intake Total 600 ml 120 ml Output Total 800 ml 600 ml Balance -200 ml -480 ml Intake Oral 600 ml 120 ml Output Urine Total 800 ml 600 ml # Bowel Movements 1 Laboratory Tests Test 08/06/17 04:30 08/06/17 08:15 Sodium Level 139 MMOL/L (136-145) Potassium Level 4.9 MMOL/L (3.5-5.1) Chloride Level 105 MMOL/L (98-107) Carbon Dioxide Level 25 MMOL/L (21-32) Anion Gap 9 mmol/L (5-15) Blood Urea Nitrogen 36 mg/dL (7-18) H Creatinine 1.4 MG/DL (0.55-1.30) H Estimat Glomerular Filtration Rate mL/min (>60) Glucose Level 126 MG/DL (74-106) H Calcium Level 9.2 MG/DL (8.5-10.1) Phosphorus Level 4.1 MG/DL (2.5-4.9) Magnesium Level 2.2 MG/DL (1.8-2.4) Total Bilirubin 0.3 MG/DL (0.2-1.0) Aspartate Amino Transf (AST/SGOT) 18 U/L (15-37) Alanine Aminotransferase (ALT/SGPT) 19 U/L (12-78) Alkaline Phosphatase 66 U/L (46-116) Total Protein 6.9 G/DL (6.4-8.2) Albumin 2.9 G/DL (3.4-5.0) L Globulin 4.0 g/dL Albumin/Globulin Ratio 0.7 (1.0-2.7) L White Blood Count 10.1 K/UL (4.8-10.8) Red Blood Count 4.29 M/UL (4.20-5.40) Hemoglobin 12.3 G/DL (12.0-16.0) Hematocrit 38.6 % (37.0-47.0) Mean Corpuscular Volume 90 FL (80-99) Mean Corpuscular Hemoglobin 28.7 PG (27.0-31.0) Mean Corpuscular Hemoglobin Concent 31.8 G/DL (32.0-36.0) L Red Cell Distribution Width 14.0 % (11.6-14.8) Platelet Count 262 K/UL (150-450) Mean Platelet Volume 10.1 FL (6.5-10.1) Neutrophils (%) (Auto) 68.2 % (45.0-75.0) Lymphocytes (%) (Auto) 21.3 % (20.0-45.0) Monocytes (%) (Auto) 6.6 % (1.0-10.0) Eosinophils (%) (Auto) 2.6 % (0.0-3.0) Basophils (%) (Auto) 1.4 % (0.0-2.0) Height (Feet): 5 Height (Inches): 5.00 Weight (Pounds): 189 General Appearance: WD/WN, no apparent distress, alert Cardiovascular: normal rate Respiratory/Chest: normal breath sounds, no respiratory distress Abdominal Exam: normal bowel sounds, non tender, soft Extremities: non-tender Objective CT AP reviewed, see full report. - mild rectal fecal impaction. - No definite acute process otherwise. - Diverticulosis. No evidence of diverticulitis - Fatty liver - Multiple well circumscribed renal masses. anemia work up reviewed fu cardiology recs for possible pacemaker, pending for Saturday if family agrees, family requesting [facility] transfer okay for DC per GI standpoint regular diet cont ppi BID + carafate OB stool r/o GI bleed pending monitor H&H, prn transfusions bowel regime >> colace + miralax, mineral oil enema prn ppi fu labs Kevin Garcia NP August 06, 2017 16:06
--- NOTE | 2017-08-06 17:15 | Cardiac Electrophysiology PN ---
Assessment/Plan Assessment/Plan 1. Episode of intermittent complete heart block. In sinus rhythm with complete LBBB and RBBB and left anterior fascicular block. These EKGs are of documentation of intermittent complete right bundle and complete left bundle as well as episodes of 2:1 AV block and Mobitz type 2 heart block are classical indication for permanent pacemaker implantation. still wants to go for PPM to [facility]. 2. 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 Likely induced by bradycardia in the setting of QT prolonging agents as the patient is on Zyprexa as well as Haldol and Levaquin that all can prolong the QT. All these agents were discontinued. No further polymorphic ventricular tachycardias overnight. The other issue is that we cannot put her on any antiarrhythmics like amiodarone as the patient already has intermittent complete heart block with profound bradycardia 3. Chronic obstructive pulmonary disease exacerbation and asymptomatic bacteriuria. 4. Dementia with behavioral issues. Off All psychoactive meds now. FINN RN Subjective Subjective No Torsades. Still want to go to [facility] for pacer implant Objective Last 24 Hour Vital Signs Date Time Temp Pulse Resp B/P (MAP) Pulse Ox O2 Delivery O2 Flow Rate FiO2 08/06/17 12:00 61 08/06/17 12:00 97.2 65 20 144/65 97 Room Air 97.2 08/06/17 09:29 63 146/68 08/06/17 08:00 57 08/06/17 08:00 98.0 63 21 146/68 98 Room Air 98.0 08/06/17 07:50 61 16 Room Air 21 08/06/17 04:00 52 08/06/17 04:00 97.7 59 20 145/73 99 Room Air 97.7 08/06/17 00:06 56 08/06/17 00:00 98.2 60 20 139/68 99 Room Air 98.2 08/05/17 20:51 128/65 08/05/17 20:10 77 16 Room Air 21 08/05/17 20:00 98.4 70 20 128/65 99 Room Air 98.4 08/05/17 19:27 67 Intake and Output 08/05/17 08/06/17 19:00 07:00 Intake Total 600 ml 120 ml Output Total 800 ml 600 ml Balance -200 ml -480 ml Intake Oral 600 ml 120 ml Output Urine Total 800 ml 600 ml # Bowel Movements 1 Laboratory Tests Test 08/06/17 04:30 08/06/17 08:15 Sodium Level 139 MMOL/L (136-145) Potassium Level 4.9 MMOL/L (3.5-5.1) Chloride Level 105 MMOL/L (98-107) Carbon Dioxide Level 25 MMOL/L (21-32) Anion Gap 9 mmol/L (5-15) Blood Urea Nitrogen 36 mg/dL (7-18) H Creatinine 1.4 MG/DL (0.55-1.30) H Estimat Glomerular Filtration Rate mL/min (>60) Glucose Level 126 MG/DL (74-106) H Calcium Level 9.2 MG/DL (8.5-10.1) Phosphorus Level 4.1 MG/DL (2.5-4.9) Magnesium Level 2.2 MG/DL (1.8-2.4) Total Bilirubin 0.3 MG/DL (0.2-1.0) Aspartate Amino Transf (AST/SGOT) 18 U/L (15-37) Alanine Aminotransferase (ALT/SGPT) 19 U/L (12-78) Alkaline Phosphatase 66 U/L (46-116) Total Protein 6.9 G/DL (6.4-8.2) Albumin 2.9 G/DL (3.4-5.0) L Globulin 4.0 g/dL Albumin/Globulin Ratio 0.7 (1.0-2.7) L White Blood Count 10.1 K/UL (4.8-10.8) Red Blood Count 4.29 M/UL (4.20-5.40) Hemoglobin 12.3 G/DL (12.0-16.0) Hematocrit 38.6 % (37.0-47.0) Mean Corpuscular Volume 90 FL (80-99) Mean Corpuscular Hemoglobin 28.7 PG (27.0-31.0) Mean Corpuscular Hemoglobin Concent 31.8 G/DL (32.0-36.0) L Red Cell Distribution Width 14.0 % (11.6-14.8) Platelet Count 262 K/UL (150-450) Mean Platelet Volume 10.1 FL (6.5-10.1) Neutrophils (%) (Auto) 68.2 % (45.0-75.0) Lymphocytes (%) (Auto) 21.3 % (20.0-45.0) Monocytes (%) (Auto) 6.6 % (1.0-10.0) Eosinophils (%) (Auto) 2.6 % (0.0-3.0) Basophils (%) (Auto) 1.4 % (0.0-2.0) Objective HEAD AND NECK: No JVD or carotid bruit. LUNGS: Clear. CARDIOVASCULAR: Regular S1 and S2 with no gallop or murmur. ABDOMEN: Soft. EXTREMITIES: No pitting edema. Dontrell Lilly MD August 06, 2017 17:15
--- NOTE | 2017-08-06 18:02 | Neurology Progress Note ---
Interim History Interim History Interim History Ms. Benites feels well. She continues to have cognitive dysfunction. She continues to be generally weak. She denies any new neurologic symptoms. She denies any cardiac symptoms. Plans are to be transferred to [facility] for pacemaker placement. Review of Systems Neuro Review of Systems Benign. Objective Physical Exam Last Vital Signs Date Time Temp Pulse Resp B/P (MAP) Pulse Ox O2 Delivery O2 Flow Rate FiO2 08/06/17 16:00 97.6 64 21 152/67 97 Room Air 97.6 08/06/17 07:50 21 07/30/17 16:00 2.0 Laboratory Tests Test 08/06/17 04:30 08/06/17 08:15 Sodium Level 139 MMOL/L (136-145) Potassium Level 4.9 MMOL/L (3.5-5.1) Chloride Level 105 MMOL/L (98-107) Carbon Dioxide Level 25 MMOL/L (21-32) Anion Gap 9 mmol/L (5-15) Blood Urea Nitrogen 36 mg/dL (7-18) H Creatinine 1.4 MG/DL (0.55-1.30) H Estimat Glomerular Filtration Rate mL/min (>60) Glucose Level 126 MG/DL (74-106) H Calcium Level 9.2 MG/DL (8.5-10.1) Phosphorus Level 4.1 MG/DL (2.5-4.9) Magnesium Level 2.2 MG/DL (1.8-2.4) Total Bilirubin 0.3 MG/DL (0.2-1.0) Aspartate Amino Transf (AST/SGOT) 18 U/L (15-37) Alanine Aminotransferase (ALT/SGPT) 19 U/L (12-78) Alkaline Phosphatase 66 U/L (46-116) Total Protein 6.9 G/DL (6.4-8.2) Albumin 2.9 G/DL (3.4-5.0) L Globulin 4.0 g/dL Albumin/Globulin Ratio 0.7 (1.0-2.7) L White Blood Count 10.1 K/UL (4.8-10.8) Red Blood Count 4.29 M/UL (4.20-5.40) Hemoglobin 12.3 G/DL (12.0-16.0) Hematocrit 38.6 % (37.0-47.0) Mean Corpuscular Volume 90 FL (80-99) Mean Corpuscular Hemoglobin 28.7 PG (27.0-31.0) Mean Corpuscular Hemoglobin Concent 31.8 G/DL (32.0-36.0) L Red Cell Distribution Width 14.0 % (11.6-14.8) Platelet Count 262 K/UL (150-450) Mean Platelet Volume 10.1 FL (6.5-10.1) Neutrophils (%) (Auto) 68.2 % (45.0-75.0) Lymphocytes (%) (Auto) 21.3 % (20.0-45.0) Monocytes (%) (Auto) 6.6 % (1.0-10.0) Eosinophils (%) (Auto) 2.6 % (0.0-3.0) Basophils (%) (Auto) 1.4 % (0.0-2.0) Neurologic Exam Objective PHYSICAL EXAMINATION: GENERAL: She is a well-developed and well-nourished, obese, black lady, lying in bed, in no acute distress. HEAD: Head normocephalic and atraumatic. NECK: No neck rigidity was observed. EENT: Examination benign. NEUROLOGIC EXAMINATION: MENTAL STATUS EXAMINATION: She was awake and alert. She was oriented to self, hospital, and July 2017. She did not know the exact date or name of the hospital. She was able to recall 3/3 words immediately, but could only remember 1/3 words in 1 minute and 3 minutes. She was able to remember president Trump only. Her mathematical skills were impaired. Her visuospatial function was also impaired. SPEECH: She had no dysarthria. LANGUAGE: She had anomia for low and mid frequency words. CRANIAL NERVE EXAMINATION: II: The visual daniels were intact to confrontation testing. III, IV & : External ocular movements were full and the pupils 3 mm in diameter, equal, round, regular, and reactive sluggishly to light. V: She had normal facial sensations, and the temporales, masseters, and pterygoids functioned normally. VII: She had a left seventh central facial paresis. VIII: She was able to hear well bilaterally and had no nystagmus. IX: The palate moved symmetrically on phonation. X: She had no hoarseness of voice. XI: The sternocleidomastoids and trapezii functioned normally. XII: The tongue was in the midline without any fasciculations or atrophy. MOTOR SYSTEM: Tone was normal in all four extremities. Examination of muscle mass revealed significant wasting of the hand muscles on the left side more than the right with a left hand contracture. Examination of power was exceedingly difficult to perform because of varying degrees of effort. 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 SENSORY EXAMINATION: She complained of altered sensations in her left hand but normal sensations in the right hand and both feet. REFLEXES: 2+ on the right and 1+ on the left at the biceps, triceps, brachioradialis and knees. 0 at both ankles. The plantar responses were flexor bilaterally. COORDINATION, STANCE & GAIT: Could not be tested. Impression/Recommendations Diagnostic Impression 1. Ms Deepika Benites is an 87-year-old right-handed black lady, who does have a past history of hypertension, diabetes mellitus, dementia, and loss of ability to walk approximately 3 to 4 years ago following which she has been living in a [facility] where she fell down and had multiple fractures with loss of ability to use the left hand and then what she believes was a stroke a few years ago with left facial twisting and problems moving a right hand. These problems have continued. 2. She feels well. She continues to have cognitive dysfunction. She continues to be generally weak. She denies any new neurologic symptoms. She denies any cardiac symptoms. Plans are to be transferred to [facility] for pacemaker placement. 3. On neurological examination, at this time, she does demonstrate problems with orientation, recent and remote memory, visuospatial function, higher cognitive function, and language. 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 4. Her Carotid duplex was benign for significant stenosis. 5. Her daughter refused brain imaging and thus it is unclear as to whether she has had a stroke or not. 6. 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 7. She does have significant cardiac pathology. Recommendations 1. Continue present management. 2. Continue to keep her blood pressure and blood sugar under good control. 3. Transfer to [facility] as planned for further cardiac care. Wilber Demarco M.D., M.S.P.Sathya. WILBER DEMARCO August 06, 2017 18:02
[2017-08-06] MEDS ORDERED: Losartan 50mg tab ORAL SCH (21:00)
[2017-08-06] MEDS ORDERED: Nitroglycerin Subl 0.4mg tab SL PRN (21:00)
[2017-08-06] MEDS: Miralax 17gm pkt ORAL SCH ×2 (21:00→22:18)
[2017-08-06] MEDS ORDERED: HydrALAZINE 50mg tab ORAL PRN (21:04)
[2017-08-06] MEDS ORDERED: Fleet's Mineral Oil Enema RECTAL PRN (21:04)
[2017-08-06] MEDS ORDERED: Albuterol/Ipratropium 3ml neb HHN PRN (21:30)
[2017-08-06 22:00] VITALS: BP 121/65
--- NOTE | 2017-08-06 22:44 | Cardiology Progress Note ---
Assessment/Plan Assessment/Plan 1. 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 She is adamant to go to [facility]. 2. [place] Pointes, possible bradycardic induced, Mg 2.2. 3. Mild pulmonary HTN. Subjective Subjective Sinus rhythm at 67. Refusing pacemaker implantation in this facility. Objective Last 24 Hour Vital Signs Date Time Temp Pulse Resp B/P (MAP) Pulse Ox O2 Delivery O2 Flow Rate FiO2 08/06/17 22:18 150/71 08/06/17 21:46 67 16 Room Air 21 08/06/17 16:00 97.6 64 21 152/67 97 Room Air 97.6 08/06/17 16:00 72 08/06/17 12:00 61 08/06/17 12:00 97.2 65 20 144/65 97 Room Air 97.2 08/06/17 09:29 63 146/68 08/06/17 08:00 57 08/06/17 08:00 98.0 63 21 146/68 98 Room Air 98.0 08/06/17 07:50 61 16 Room Air 21 08/06/17 04:00 52 08/06/17 04:00 97.7 59 20 145/73 99 Room Air 97.7 08/06/17 00:06 56 08/06/17 00:00 98.2 60 20 139/68 99 Room Air 98.2 Intake and Output 08/05/17 08/06/17 19:00 07:00 Intake Total 600 ml 120 ml Output Total 800 ml 600 ml Balance -200 ml -480 ml Intake Oral 600 ml 120 ml Output Urine Total 800 ml 600 ml # Bowel Movements 1 2D Echo: EF 65%, Mild LVH, Mild MR,RVSP 43 mmHg,Normal intracardiac filling pressure Laboratory Tests Test 08/06/17 04:30 08/06/17 08:15 Sodium Level 139 MMOL/L (136-145) Potassium Level 4.9 MMOL/L (3.5-5.1) Chloride Level 105 MMOL/L (98-107) Carbon Dioxide Level 25 MMOL/L (21-32) Anion Gap 9 mmol/L (5-15) Blood Urea Nitrogen 36 mg/dL (7-18) H Creatinine 1.4 MG/DL (0.55-1.30) H Estimat Glomerular Filtration Rate mL/min (>60) Glucose Level 126 MG/DL (74-106) H Calcium Level 9.2 MG/DL (8.5-10.1) Phosphorus Level 4.1 MG/DL (2.5-4.9) Magnesium Level 2.2 MG/DL (1.8-2.4) Total Bilirubin 0.3 MG/DL (0.2-1.0) Aspartate Amino Transf (AST/SGOT) 18 U/L (15-37) Alanine Aminotransferase (ALT/SGPT) 19 U/L (12-78) Alkaline Phosphatase 66 U/L (46-116) Total Protein 6.9 G/DL (6.4-8.2) Albumin 2.9 G/DL (3.4-5.0) L Globulin 4.0 g/dL Albumin/Globulin Ratio 0.7 (1.0-2.7) L White Blood Count 10.1 K/UL (4.8-10.8) Red Blood Count 4.29 M/UL (4.20-5.40) Hemoglobin 12.3 G/DL (12.0-16.0) Hematocrit 38.6 % (37.0-47.0) Mean Corpuscular Volume 90 FL (80-99) Mean Corpuscular Hemoglobin 28.7 PG (27.0-31.0) Mean Corpuscular Hemoglobin Concent 31.8 G/DL (32.0-36.0) L Red Cell Distribution Width 14.0 % (11.6-14.8) Platelet Count 262 K/UL (150-450) Mean Platelet Volume 10.1 FL (6.5-10.1) Neutrophils (%) (Auto) 68.2 % (45.0-75.0) Lymphocytes (%) (Auto) 21.3 % (20.0-45.0) Monocytes (%) (Auto) 6.6 % (1.0-10.0) Eosinophils (%) (Auto) 2.6 % (0.0-3.0) Basophils (%) (Auto) 1.4 % (0.0-2.0) Objective HEENT: Normocepahic, anicteric, PERRLA, EOMI. NECK: No JVD, no carotid bruit, carotid upstroke 2+ B/L CHEST: Clear to auscultation. HEART: Normal S1 and S2, RRR, no murmurs, gallops or rubs. ABDOMEN: Obese and nontender, non-distended, + BS. EXTREMITIES: No edema, clubbing or cyanosis. Dontrell Tubbs MD August 06, 2017 22:44
--- NOTE | 2017-08-06 23:37 | General Progress Note ---
Assessment/Plan Assessment/Plan the pt lacks capacity to make decisions dementia with behavioral issues. next of kin should make decision Subjective Date patient seen: August 06, 2017 Neurologic/Psychiatric: Reports: anxiety, depressed, emotional problems Allergies: Coded Allergies: CODEINE (Verified Allergy, Unknown, 07/29/17) EGG (Verified Allergy, Unknown, 07/29/17) LISINOPRIL (Verified Allergy, Unknown, 07/29/17) MILK (Verified Allergy, Unknown, 07/29/17) PENICILLINS (Verified Allergy, Unknown, 07/29/17) Subjective started to take meds more alert has not taken psych meds since in hospital Objective Last 24 Hour Vital Signs Date Time Temp Pulse Resp B/P (MAP) Pulse Ox O2 Delivery O2 Flow Rate FiO2 08/06/17 22:18 150/71 08/06/17 21:46 67 16 Room Air 21 08/06/17 16:00 97.6 64 21 152/67 97 Room Air 97.6 08/06/17 16:00 72 08/06/17 12:00 61 08/06/17 12:00 97.2 65 20 144/65 97 Room Air 97.2 08/06/17 09:29 63 146/68 08/06/17 08:00 57 08/06/17 08:00 98.0 63 21 146/68 98 Room Air 98.0 08/06/17 07:50 61 16 Room Air 21 08/06/17 04:00 52 08/06/17 04:00 97.7 59 20 145/73 99 Room Air 97.7 08/06/17 00:06 56 08/06/17 00:00 98.2 60 20 139/68 99 Room Air 98.2 Intake and Output 08/05/17 08/06/17 19:00 07:00 Intake Total 600 ml 120 ml Output Total 800 ml 600 ml Balance -200 ml -480 ml Intake Oral 600 ml 120 ml Output Urine Total 800 ml 600 ml # Bowel Movements 1 Laboratory Tests 08/06/17 04:30: Sodium Level 139, Potassium Level 4.9, Chloride Level 105, Carbon Dioxide Level 25, Anion Gap 9, Blood Urea Nitrogen 36H, Creatinine 1.4H, Estimat Glomerular Filtration Rate , Glucose Level 126H, Calcium Level 9.2, Phosphorus Level 4.1, Magnesium Level 2.2, Total Bilirubin 0.3, Aspartate Amino Transf (AST/SGOT) 18, Alanine Aminotransferase (ALT/SGPT) 19, Alkaline Phosphatase 66, Total Protein 6.9, Albumin 2.9L, Globulin 4.0, Albumin/Globulin Ratio 0.7L 08/06/17 08:15: White Blood Count 10.1, Red Blood Count 4.29, Hemoglobin 12.3, Hematocrit 38.6, Mean Corpuscular Volume 90, Mean Corpuscular Hemoglobin 28.7, Mean Corpuscular Hemoglobin Concent 31.8L, Red Cell Distribution Width 14.0, Platelet Count 262, Mean Platelet Volume 10.1, Neutrophils (%) (Auto) 68.2, Lymphocytes (%) (Auto) 21.3, Monocytes (%) (Auto) 6.6, Eosinophils (%) (Auto) 2.6, Basophils (%) (Auto ) 1.4 Height (Feet): 5 Height (Inches): 5.00 Weight (Pounds): 189 El Marcial M.D. August 06, 2017 23:37
[2017-08-07] VITALS: BP 153/60
[2017-08-07 04:00] VITALS: BP 172/83
[2017-08-07] MEDS: NovoLOG Insulin Flexpen SUBQ SCH ×2 (06:01→11:12)
[2017-08-07 08:00] VITALS: BP 138/53
[2017-08-07] MEDS: Sucralfate 1gm tab ORAL SCH ×2 (08:48→12:42)
[2017-08-07] MEDS: Docusate 100mg cap ORAL SCH (08:48)
[2017-08-07] MEDS: Theophylline ER 100mg ORAL SCH (08:49)
[2017-08-07] MEDS: Heparin 5000 units/ml inj SUBQ SCH (08:50)
[2017-08-07 09:07] LABS: BASOPHILS % (AUTO) 1.5 % (0.0-2.0); EOSINOPHILS % (AUTO) 3.4 % (0.0-3.0); HEMATOCRIT 41.9 % (37.0-47.0); LYMPHOCYTES % (AUTO) 25.1 % (20.0-45.0); MEAN CORPUSCULAR VOLUME 91 FL (80-99); MONOCYTES % (AUTO) 5.6 % (1.0-10.0); NEUTROPHILS % (AUTO) 64.3 % (45.0-75.0); PLATELET COUNT 288 K/UL (150-450); RED BLOOD COUNT 4.61 M/UL (4.20-5.40); RED CELL DISTRIBUTION WIDTH 14.2 % (11.6-14.8); WHITE BLOOD COUNT 10.4 K/UL (4.8-10.8)
[2017-08-07 09:17] LABS: ANION GAP 8 mmol/L (5-15); BLOOD UREA NITROGEN 28 mg/dL (7-18); CALCIUM 9.1 MG/DL (8.5-10.1); CARBON DIOXIDE 28 MMOL/L (21-32); CHLORIDE 105 MMOL/L (98-107); CREATININE 1.3 MG/DL (0.55-1.30); POTASSIUM 3.9 MMOL/L (3.5-5.1); SODIUM 140 MMOL/L (136-145)
--- NOTE | 2017-08-07 11:00 | Infectious Diseases Prog Note ---
Assessment/Plan Assessment/Plan ASSESSMENT: The patient is an 87-year-old female with, COPD exacerbation, no Pna Chest x-ray, NAPD. UCx : E. Coli asymptomatic bacteriuria. 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 Osteoarthritis. Hyperlipidemia. GERD/Barcenas esophagitis. History of asthma PLAN: monitor pt off of AB Rx; ok to discharge to [facility] for PPM placement 08/01 SP Levaquin day # Monitor CBC. Monitor BMP Cardio fup requires pacemaker implantation; plan to be done at [facility] Discussed with RN. Subjective Allergies: Coded Allergies: CODEINE (Verified Allergy, Unknown, 07/29/17) EGG (Verified Allergy, Unknown, 07/29/17) LISINOPRIL (Verified Allergy, Unknown, 07/29/17) MILK (Verified Allergy, Unknown, 07/29/17) PENICILLINS (Verified Allergy, Unknown, 07/29/17) Subjective afebrile no leukocytosis off abx Objective Vital Signs Last 24 Hour Vital Signs Date Time Temp Pulse Resp B/P (MAP) Pulse Ox O2 Delivery O2 Flow Rate FiO2 08/07/17 09:00 73 138/53 08/07/17 08:00 60 08/07/17 08:00 98.2 73 20 138/53 96 Room Air 98.2 08/07/17 07:35 72 18 Room Air 21 08/07/17 05:11 58 08/07/17 04:00 97.7 69 20 172/83 96 Room Air 97.7 08/07/17 00:00 97.0 55 20 153/60 98 Room Air 97.0 08/06/17 23:59 58 08/06/17 22:18 150/71 08/06/17 22:00 97.7 63 20 121/65 98 Room Air 97.7 08/06/17 21:46 67 16 Room Air 21 08/06/17 20:00 69 08/06/17 16:00 97.6 64 21 152/67 97 Room Air 97.6 08/06/17 16:00 72 08/06/17 12:00 61 08/06/17 12:00 97.2 65 20 144/65 97 Room Air 97.2 Height (Feet): 5 Height (Inches): 5.00 Weight (Pounds): 99 Objective General Appearance: WD/WN, no apparent distress, alert, obese Cardiovascular: normal rate Respiratory/Chest: normal breath sounds, no respiratory distress Abdominal Exam: normal bowel sounds, non tender, soft Extremities: normal range of motion, non-tender Laboratory Tests Test 08/07/17 08:35 White Blood Count 10.4 K/UL (4.8-10.8) Red Blood Count 4.61 M/UL (4.20-5.40) Hemoglobin 13.0 G/DL (12.0-16.0) Hematocrit 41.9 % (37.0-47.0) Mean Corpuscular Volume 91 FL (80-99) Mean Corpuscular Hemoglobin 28.2 PG (27.0-31.0) Mean Corpuscular Hemoglobin Concent 31.0 G/DL (32.0-36.0) L Red Cell Distribution Width 14.2 % (11.6-14.8) Platelet Count 288 K/UL (150-450) Mean Platelet Volume 10.6 FL (6.5-10.1) H Neutrophils (%) (Auto) 64.3 % (45.0-75.0) Lymphocytes (%) (Auto) 25.1 % (20.0-45.0) Monocytes (%) (Auto) 5.6 % (1.0-10.0) Eosinophils (%) (Auto) 3.4 % (0.0-3.0) H Basophils (%) (Auto) 1.5 % (0.0-2.0) Sodium Level 140 MMOL/L (136-145) Potassium Level 3.9 MMOL/L (3.5-5.1) Chloride Level 105 MMOL/L (98-107) Carbon Dioxide Level 28 MMOL/L (21-32) Anion Gap 8 mmol/L (5-15) Blood Urea Nitrogen 28 mg/dL (7-18) H Creatinine 1.3 MG/DL (0.55-1.30) Estimat Glomerular Filtration Rate mL/min (>60) Glucose Level 140 MG/DL (74-106) H Calcium Level 9.1 MG/DL (8.5-10.1) Current Medications Medications (Trade) Dose Ordered Sig/Edgar Route PRN Reason Start Time Stop Time Status Last Admin Dose Admin Albuterol/ Ipratropium (Albuterol/ Ipratropium) 3 ml Q4H PRN HHN dyspnea 08/06/17 21:30 08/07/17 17:25 Amlodipine Besylate (Norvasc) 5 mg DAILY ORAL 08/07/17 09:00 09/03/17 08:59 Baclofen (Lioresal) 5 mg THREE TIMES A DAY ORAL 08/07/17 09:00 08/28/17 12:59 08/07/17 08:49 Dextrose (Dextrose 50%) 25 ml STAT PRN IV Hypoglycemia 08/06/17 21:03 09/05/17 21:02 Dextrose (Dextrose 50%) 50 ml STAT PRN IV Hypoglycemia 08/06/17 21:03 09/05/17 21:02 Docusate Sodium (Colace) 100 mg EVERY 12 HOURS ORAL 08/06/17 21:00 08/28/17 17:59 08/07/17 08:48 Gabapentin (Neurontin) 300 mg THREE TIMES A DAY ORAL 08/07/17 09:00 08/28/17 12:59 08/07/17 08:49 Heparin Sodium (Porcine) (Heparin 5000 units/ml) 5,000 units EVERY 12 HOURS SUBQ 08/06/17 21:00 08/28/17 10:59 08/07/17 08:50 Hydralazine HCl (Apresoline) 50 mg Q6H PRN ORAL SBP > 160mmHg 08/06/17 21:04 09/05/17 21:03 Insulin Aspart (NovoLOG) BEFORE MEALS AND HS SUBQ 08/06/17 21:00 08/29/17 11:29 08/06/17 22:38 Losartan Potassium (Cozaar) 100 mg BEDTIME ORAL 08/06/17 21:00 08/28/17 20:59 08/06/17 22:18 Mineral Oil (Fleet's Mineral Oil Enema) 133 ml DAILYPRN PRN RECTAL CONSTIPATION 08/06/17 21:04 09/05/17 21:03 Nitroglycerin (Ntg) 0.4 mg Q5M X 3 DOSES PRN SL Prn Chest Pain 08/06/17 21:00 08/28/17 08:59 Ondansetron HCl (Zofran) 4 mg Q6H PRN IVP Nausea & Vomiting 08/06/17 21:05 08/28/17 21:04 Pantoprazole (Protonix) 40 mg BID ORAL 08/07/17 09:00 08/28/17 11:14 08/07/17 08:49 Polyethylene Glycol (Miralax) 17 gm BEDTIME ORAL 08/06/17 21:00 08/28/17 20:59 Prednisone (predniSONE) 30 mg Taper DAILY ORAL 08/04/17 09:00 08/10/17 08:59 08/07/17 08:48 Sucralfate (Carafate) 1 gm THREE TIMES A DAY ORAL 08/07/17 09:00 08/28/17 12:59 08/07/17 08:48 Temazepam (Restoril) 15 mg HSPRN PRN ORAL Insomnia 08/06/17 21:00 08/09/17 20:59 Theophylline (Sean-Dur) 100 mg EVERY 12 HOURS ORAL 08/06/17 21:00 08/28/17 11:14 08/07/17 08:49 Beulah Vega M.D. August 07, 2017 11:00
--- NOTE | 2017-08-07 11:04 | Pulmonology Progress Note ---
Assessment/Plan Problems: (1) Acute asthma exacerbation (2) Pulmonary edema (3) Bradycardia (4) History of asthma (5) History of hypertension Assessment/Plan sinus rhythm now respiratory treatment titrate fio2 to sat of 92% sputum induction echo reviewed: EF 60%, moderate pulmonary hypertension dvt prophylaxis awaiting pacemaker insertion family wants to transfer to [facility] for pacemaker All medications and treatment were reviewed. and All medications reconciliation completed Subjective ROS Limited/Unobtainable: No Constitutional: Reports: no symptoms HEENT: Repors: no symptoms Respiratory: Reports: no symptoms Allergies: Coded Allergies: CODEINE (Verified Allergy, Unknown, 07/29/17) EGG (Verified Allergy, Unknown, 07/29/17) LISINOPRIL (Verified Allergy, Unknown, 07/29/17) MILK (Verified Allergy, Unknown, 07/29/17) PENICILLINS (Verified Allergy, Unknown, 07/29/17) Objective Last 24 Hour Vital Signs Date Time Temp Pulse Resp B/P (MAP) Pulse Ox O2 Delivery O2 Flow Rate FiO2 08/07/17 09:00 73 138/53 08/07/17 08:00 60 08/07/17 08:00 98.2 73 20 138/53 96 Room Air 98.2 08/07/17 07:35 72 18 Room Air 21 08/07/17 05:11 58 08/07/17 04:00 97.7 69 20 172/83 96 Room Air 97.7 08/07/17 00:00 97.0 55 20 153/60 98 Room Air 97.0 08/06/17 23:59 58 08/06/17 22:18 150/71 08/06/17 22:00 97.7 63 20 121/65 98 Room Air 97.7 08/06/17 21:46 67 16 Room Air 21 08/06/17 20:00 69 08/06/17 16:00 97.6 64 21 152/67 97 Room Air 97.6 08/06/17 16:00 72 08/06/17 12:00 61 08/06/17 12:00 97.2 65 20 144/65 97 Room Air 97.2 Intake and Output 08/06/17 08/07/17 19:00 07:00 Intake Total 520 ml 240 ml Output Total 500 ml Balance 20 ml 240 ml Intake Oral 520 ml 240 ml Output Urine Total 500 ml # Bowel Movements 2 2 General Appearance: WD/WN HEENT: normocephalic, atraumatic Respiratory/Chest: chest wall non-tender, lungs clear Cardiovascular: normal rate Abdomen: normal bowel sounds, soft, non tender Genitourinary: normal external genitalia Extremities: no clubbing Laboratory Tests 08/07/17 08:35: White Blood Count 10.4, Red Blood Count 4.61, Hemoglobin 13.0, Hematocrit 41.9, Mean Corpuscular Volume 91, Mean Corpuscular Hemoglobin 28.2, Mean Corpuscular Hemoglobin Concent 31.0L, Red Cell Distribution Width 14.2, Platelet Count 288, Mean Platelet Volume 10.6H, Neutrophils (%) (Auto) 64.3, Lymphocytes (%) (Auto) 25.1, Monocytes (%) (Auto) 5.6, Eosinophils (%) (Auto) 3.4H, Basophils (%) (Auto ) 1.5, Sodium Level 140, Potassium Level 3.9, Chloride Level 105, Carbon Dioxide Level 28, Anion Gap 8, Blood Urea Nitrogen 28H, Creatinine 1.3, Estimat Glomerular Filtration Rate , Glucose Level 140H, Calcium Level 9.1 Current Medications Medications (Trade) Dose Ordered Sig/Edgar Route PRN Reason Start Time Stop Time Status Last Admin Dose Admin Albuterol/ Ipratropium (Albuterol/ Ipratropium) 3 ml Q4H PRN HHN dyspnea 08/06/17 21:30 08/07/17 17:25 Amlodipine Besylate (Norvasc) 5 mg DAILY ORAL 08/07/17 09:00 09/03/17 08:59 Baclofen (Lioresal) 5 mg THREE TIMES A DAY ORAL 08/07/17 09:00 08/28/17 12:59 08/07/17 08:49 Dextrose (Dextrose 50%) 25 ml STAT PRN IV Hypoglycemia 08/06/17 21:03 09/05/17 21:02 Dextrose (Dextrose 50%) 50 ml STAT PRN IV Hypoglycemia 08/06/17 21:03 09/05/17 21:02 Docusate Sodium (Colace) 100 mg EVERY 12 HOURS ORAL 08/06/17 21:00 08/28/17 17:59 08/07/17 08:48 Gabapentin (Neurontin) 300 mg THREE TIMES A DAY ORAL 08/07/17 09:00 08/28/17 12:59 08/07/17 08:49 Heparin Sodium (Porcine) (Heparin 5000 units/ml) 5,000 units EVERY 12 HOURS SUBQ 08/06/17 21:00 08/28/17 10:59 08/07/17 08:50 Hydralazine HCl (Apresoline) 50 mg Q6H PRN ORAL SBP > 160mmHg 08/06/17 21:04 09/05/17 21:03 Insulin Aspart (NovoLOG) BEFORE MEALS AND HS SUBQ 08/06/17 21:00 08/29/17 11:29 08/06/17 22:38 Losartan Potassium (Cozaar) 100 mg BEDTIME ORAL 08/06/17 21:00 08/28/17 20:59 08/06/17 22:18 Mineral Oil (Fleet's Mineral Oil Enema) 133 ml DAILYPRN PRN RECTAL CONSTIPATION 08/06/17 21:04 09/05/17 21:03 Nitroglycerin (Ntg) 0.4 mg Q5M X 3 DOSES PRN SL Prn Chest Pain 08/06/17 21:00 08/28/17 08:59 Ondansetron HCl (Zofran) 4 mg Q6H PRN IVP Nausea & Vomiting 08/06/17 21:05 08/28/17 21:04 Pantoprazole (Protonix) 40 mg BID ORAL 08/07/17 09:00 08/28/17 11:14 08/07/17 08:49 Polyethylene Glycol (Miralax) 17 gm BEDTIME ORAL 08/06/17 21:00 08/28/17 20:59 Prednisone (predniSONE) 30 mg Taper DAILY ORAL 08/04/17 09:00 08/10/17 08:59 08/07/17 08:48 Sucralfate (Carafate) 1 gm THREE TIMES A DAY ORAL 08/07/17 09:00 08/28/17 12:59 08/07/17 08:48 Temazepam (Restoril) 15 mg HSPRN PRN ORAL Insomnia 08/06/17 21:00 08/09/17 20:59 Theophylline (Sean-Dur) 100 mg EVERY 12 HOURS ORAL 08/06/17 21:00 08/28/17 11:14 08/07/17 08:49 Sherri Phillips MD August 07, 2017 11:03
--- NOTE | 2017-08-07 11:05 | GI Progress Note ---
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 Chao. Assessment/Plan CT AP reviewed, see full report. - mild rectal fecal impaction. - No definite acute process otherwise. - Diverticulosis. No evidence of diverticulitis - Fatty liver - Multiple well circumscribed renal masses. anemia work up reviewed OB stool negative fu cardiology recs for possible pacemaker >> refuses, wants to be transferred to [facility] okay for DC per GI standpoint regular diet cont ppi BID + carafate monitor H&H, prn transfusions bowel regime >> colace + miralax, mineral oil enema prn ppi fu labs The patient was seen and examined at bedside and all new and available data was reviewed in the patients chart. I agree with the above findings, impression and plan. (Patient seen earlier today. Signature stamp does not reflect patient encounter time.). - Cam Chao MD Subjective Subjective limited, agitated wants to go home Objective Last 24 Hour Vital Signs Date Time Temp Pulse Resp B/P (MAP) Pulse Ox O2 Delivery O2 Flow Rate FiO2 08/07/17 09:00 73 138/53 08/07/17 08:00 60 08/07/17 08:00 98.2 73 20 138/53 96 Room Air 98.2 08/07/17 07:35 72 18 Room Air 21 08/07/17 05:11 58 08/07/17 04:00 97.7 69 20 172/83 96 Room Air 97.7 08/07/17 00:00 97.0 55 20 153/60 98 Room Air 97.0 08/06/17 23:59 58 08/06/17 22:18 150/71 08/06/17 22:00 97.7 63 20 121/65 98 Room Air 97.7 08/06/17 21:46 67 16 Room Air 21 08/06/17 20:00 69 08/06/17 16:00 97.6 64 21 152/67 97 Room Air 97.6 08/06/17 16:00 72 08/06/17 12:00 61 08/06/17 12:00 97.2 65 20 144/65 97 Room Air 97.2 Intake and Output 08/06/17 08/07/17 19:00 07:00 Intake Total 520 ml 240 ml Output Total 500 ml Balance 20 ml 240 ml Intake Oral 520 ml 240 ml Output Urine Total 500 ml # Bowel Movements 2 2 Laboratory Tests Test 08/07/17 08:35 White Blood Count 10.4 K/UL (4.8-10.8) Red Blood Count 4.61 M/UL (4.20-5.40) Hemoglobin 13.0 G/DL (12.0-16.0) Hematocrit 41.9 % (37.0-47.0) Mean Corpuscular Volume 91 FL (80-99) Mean Corpuscular Hemoglobin 28.2 PG (27.0-31.0) Mean Corpuscular Hemoglobin Concent 31.0 G/DL (32.0-36.0) L Red Cell Distribution Width 14.2 % (11.6-14.8) Platelet Count 288 K/UL (150-450) Mean Platelet Volume 10.6 FL (6.5-10.1) H Neutrophils (%) (Auto) 64.3 % (45.0-75.0) Lymphocytes (%) (Auto) 25.1 % (20.0-45.0) Monocytes (%) (Auto) 5.6 % (1.0-10.0) Eosinophils (%) (Auto) 3.4 % (0.0-3.0) H Basophils (%) (Auto) 1.5 % (0.0-2.0) Sodium Level 140 MMOL/L (136-145) Potassium Level 3.9 MMOL/L (3.5-5.1) Chloride Level 105 MMOL/L (98-107) Carbon Dioxide Level 28 MMOL/L (21-32) Anion Gap 8 mmol/L (5-15) Blood Urea Nitrogen 28 mg/dL (7-18) H Creatinine 1.3 MG/DL (0.55-1.30) Estimat Glomerular Filtration Rate mL/min (>60) Glucose Level 140 MG/DL (74-106) H Calcium Level 9.1 MG/DL (8.5-10.1) Height (Feet): 5 Height (Inches): 5.00 Weight (Pounds): 99 General Appearance: WD/WN, no apparent distress, alert Cardiovascular: normal rate Respiratory/Chest: normal breath sounds, no respiratory distress Abdominal Exam: normal bowel sounds, non tender, soft Extremities: non-tender Objective CT AP reviewed, see full report. - mild rectal fecal impaction. - No definite acute process otherwise. - Diverticulosis. No evidence of diverticulitis - Fatty liver - Multiple well circumscribed renal masses. anemia work up reviewed fu cardiology recs for possible pacemaker, pending for Saturday if family agrees, family requesting [facility] transfer okay for DC per GI standpoint regular diet cont ppi BID + carafate OB stool r/o GI bleed pending monitor H&H, prn transfusions bowel regime >> colace + miralax, mineral oil enema prn ppi fu labs Kevin Garcia NP August 07, 2017 11:05
[2017-08-07 12:00] VITALS: BP 149/69
--- NOTE | 2017-08-07 12:00 | General Progress Note ---
Assessment/Plan Status: stable Assessment/Plan the pt lacks capacity to make decisions dementia with behavioral issues. next of kin should make decision Subjective Date patient seen: August 07, 2017 Neurologic/Psychiatric: Reports: anxiety, emotional problems Allergies: Coded Allergies: CODEINE (Verified Allergy, Unknown, 07/29/17) EGG (Verified Allergy, Unknown, 07/29/17) LISINOPRIL (Verified Allergy, Unknown, 07/29/17) MILK (Verified Allergy, Unknown, 07/29/17) PENICILLINS (Verified Allergy, Unknown, 07/29/17) Subjective the pt is confused. alert took medications forgetful Objective Last 24 Hour Vital Signs Date Time Temp Pulse Resp B/P (MAP) Pulse Ox O2 Delivery O2 Flow Rate FiO2 08/07/17 09:00 73 138/53 08/07/17 08:00 60 08/07/17 08:00 98.2 73 20 138/53 96 Room Air 98.2 08/07/17 07:35 72 18 Room Air 21 08/07/17 05:11 58 08/07/17 04:00 97.7 69 20 172/83 96 Room Air 97.7 08/07/17 00:00 97.0 55 20 153/60 98 Room Air 97.0 08/06/17 23:59 58 08/06/17 22:18 150/71 08/06/17 22:00 97.7 63 20 121/65 98 Room Air 97.7 08/06/17 21:46 67 16 Room Air 21 08/06/17 20:00 69 08/06/17 16:00 97.6 64 21 152/67 97 Room Air 97.6 08/06/17 16:00 72 08/06/17 12:00 61 08/06/17 12:00 97.2 65 20 144/65 97 Room Air 97.2 Intake and Output 08/06/17 08/07/17 19:00 07:00 Intake Total 520 ml 240 ml Output Total 500 ml Balance 20 ml 240 ml Intake Oral 520 ml 240 ml Output Urine Total 500 ml # Bowel Movements 2 2 Laboratory Tests 08/07/17 08:35: White Blood Count 10.4, Red Blood Count 4.61, Hemoglobin 13.0, Hematocrit 41.9, Mean Corpuscular Volume 91, Mean Corpuscular Hemoglobin 28.2, Mean Corpuscular Hemoglobin Concent 31.0L, Red Cell Distribution Width 14.2, Platelet Count 288, Mean Platelet Volume 10.6H, Neutrophils (%) (Auto) 64.3, Lymphocytes (%) (Auto) 25.1, Monocytes (%) (Auto) 5.6, Eosinophils (%) (Auto) 3.4H, Basophils (%) (Auto ) 1.5, Sodium Level 140, Potassium Level 3.9, Chloride Level 105, Carbon Dioxide Level 28, Anion Gap 8, Blood Urea Nitrogen 28H, Creatinine 1.3, Estimat Glomerular Filtration Rate , Glucose Level 140H, Calcium Level 9.1 Height (Feet): 5 Height (Inches): 5.00 Weight (Pounds): 99 General Appearance: WD/WN, no apparent distress, alert, confused El Marcial M.D. August 07, 2017 12:00
[2017-08-07] MEDS ORDERED: LORazepam 1mg tab ORAL PRN (12:30)
--- NOTE | 2017-08-07 13:22 | Cardiac Electrophysiology PN ---
Assessment/Plan Assessment/Plan 1. Intermittent complete heart block. 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 These EKGs and intermittent complete right bundle and complete left bundle as well as episodes of 2:1 AV block and Mobitz type 2 heart block are classical indication for permanent pacemaker implantation. Still wants to go for PPM to [facility]. 2. 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 Likely induced by bradycardia in the setting of QT prolonging agents as the patient is on Zyprexa as well as Haldol and Levaquin that all can prolong the QT. All these agents were discontinued. No further polymorphic ventricular tachycardias overnight. The other issue is that we cannot put her on any antiarrhythmics like amiodarone as the patient already has intermittent complete heart block with profound bradycardia 3. Chronic obstructive pulmonary disease exacerbation and asymptomatic bacteriuria. 4. Dementia with behavioral issues. Off All psychoactive meds now. FINN RN Subjective Subjective No Torsades. Didn't sign consent for pacer yet. Objective Last 24 Hour Vital Signs Date Time Temp Pulse Resp B/P (MAP) Pulse Ox O2 Delivery O2 Flow Rate FiO2 08/07/17 09:00 73 138/53 08/07/17 08:00 60 08/07/17 08:00 98.2 73 20 138/53 96 Room Air 98.2 08/07/17 07:35 72 18 Room Air 21 08/07/17 05:11 58 08/07/17 04:00 97.7 69 20 172/83 96 Room Air 97.7 08/07/17 00:00 97.0 55 20 153/60 98 Room Air 97.0 08/06/17 23:59 58 08/06/17 22:18 150/71 08/06/17 22:00 97.7 63 20 121/65 98 Room Air 97.7 08/06/17 21:46 67 16 Room Air 21 08/06/17 20:00 69 08/06/17 16:00 97.6 64 21 152/67 97 Room Air 97.6 08/06/17 16:00 72 Intake and Output 08/06/17 08/07/17 19:00 07:00 Intake Total 520 ml 240 ml Output Total 500 ml Balance 20 ml 240 ml Intake Oral 520 ml 240 ml Output Urine Total 500 ml # Bowel Movements 2 2 Laboratory Tests Test 08/07/17 08:35 White Blood Count 10.4 K/UL (4.8-10.8) Red Blood Count 4.61 M/UL (4.20-5.40) Hemoglobin 13.0 G/DL (12.0-16.0) Hematocrit 41.9 % (37.0-47.0) Mean Corpuscular Volume 91 FL (80-99) Mean Corpuscular Hemoglobin 28.2 PG (27.0-31.0) Mean Corpuscular Hemoglobin Concent 31.0 G/DL (32.0-36.0) L Red Cell Distribution Width 14.2 % (11.6-14.8) Platelet Count 288 K/UL (150-450) Mean Platelet Volume 10.6 FL (6.5-10.1) H Neutrophils (%) (Auto) 64.3 % (45.0-75.0) Lymphocytes (%) (Auto) 25.1 % (20.0-45.0) Monocytes (%) (Auto) 5.6 % (1.0-10.0) Eosinophils (%) (Auto) 3.4 % (0.0-3.0) H Basophils (%) (Auto) 1.5 % (0.0-2.0) Sodium Level 140 MMOL/L (136-145) Potassium Level 3.9 MMOL/L (3.5-5.1) Chloride Level 105 MMOL/L (98-107) Carbon Dioxide Level 28 MMOL/L (21-32) Anion Gap 8 mmol/L (5-15) Blood Urea Nitrogen 28 mg/dL (7-18) H Creatinine 1.3 MG/DL (0.55-1.30) Estimat Glomerular Filtration Rate mL/min (>60) Glucose Level 140 MG/DL (74-106) H Calcium Level 9.1 MG/DL (8.5-10.1) Objective HEAD AND NECK: No JVD or carotid bruit. LUNGS: Clear. CARDIOVASCULAR: Regular S1 and S2 with no gallop or murmur. ABDOMEN: Soft. EXTREMITIES: No pitting edema. Dontrell Lilly MD August 07, 2017 13:22
--- NOTE | 2017-08-07 14:34 | General Progress Note ---
Assessment/Plan Problem List: (1) Hypoxia ICD Codes: R09.02 - Hypoxemia SNOMED: 762590951 (2) Diabetes ICD Codes: E11.9 - Type 2 diabetes mellitus without complications SNOMED: 92581592 (3) Bradycardia ICD Codes: R00.1 - Bradycardia, unspecified SNOMED: 09871743 (4) Bronchospasm ICD Codes: J98.01 - Acute bronchospasm SNOMED: 7385423 (5) GERD (gastroesophageal reflux disease) ICD Codes: K21.9 - Gastro-esophageal reflux disease without esophagitis SNOMED: 267316876 Status: unchanged Assessment/Plan o2 pulm tx abx ot pt diet cbc bmp am dc to plan snf if cardio clears Subjective Constitutional: Reports: weakness Allergies: Coded Allergies: CODEINE (Verified Allergy, Unknown, 07/29/17) EGG (Verified Allergy, Unknown, 07/29/17) LISINOPRIL (Verified Allergy, Unknown, 07/29/17) MILK (Verified Allergy, Unknown, 07/29/17) PENICILLINS (Verified Allergy, Unknown, 07/29/17) All Systems: reviewed and negative except above Subjective sleepy calm in bed Objective Last 24 Hour Vital Signs Date Time Temp Pulse Resp B/P (MAP) Pulse Ox O2 Delivery O2 Flow Rate FiO2 08/07/17 12:00 98.3 61 20 149/69 97 Room Air 98.3 08/07/17 09:00 73 138/53 08/07/17 08:00 60 08/07/17 08:00 98.2 73 20 138/53 96 Room Air 98.2 08/07/17 07:35 72 18 Room Air 08/07/17 05:11 58 08/07/17 04:00 97.7 69 20 172/83 96 Room Air 97.7 08/07/17 00:00 97.0 55 20 153/60 98 Room Air 97.0 08/06/17 23:59 58 08/06/17 22:18 150/71 08/06/17 22:00 97.7 63 20 121/65 98 Room Air 97.7 08/06/17 21:46 67 16 Room Air 21 08/06/17 20:00 69 08/06/17 16:00 97.6 64 21 152/67 97 Room Air 97.6 08/06/17 16:00 72 Intake and Output 08/06/17 08/07/17 19:00 07:00 Intake Total 520 ml 240 ml Output Total 500 ml Balance 20 ml 240 ml Intake Oral 520 ml 240 ml Output Urine Total 500 ml # Bowel Movements 2 2 Laboratory Tests 08/07/17 08:35: White Blood Count 10.4, Red Blood Count 4.61, Hemoglobin 13.0, Hematocrit 41.9, Mean Corpuscular Volume 91, Mean Corpuscular Hemoglobin 28.2, Mean Corpuscular Hemoglobin Concent 31.0L, Red Cell Distribution Width 14.2, Platelet Count 288, Mean Platelet Volume 10.6H, Neutrophils (%) (Auto) 64.3, Lymphocytes (%) (Auto) 25.1, Monocytes (%) (Auto) 5.6, Eosinophils (%) (Auto) 3.4H, Basophils (%) (Auto ) 1.5, Sodium Level 140, Potassium Level 3.9, Chloride Level 105, Carbon Dioxide Level 28, Anion Gap 8, Blood Urea Nitrogen 28H, Creatinine 1.3, Estimat Glomerular Filtration Rate , Glucose Level 140H, Calcium Level 9.1 Height (Feet): 5 Height (Inches): 5.00 Weight (Pounds): 99 General Appearance: lethargic EENT: normal ENT inspection Neck: normal alignment Cardiovascular: normal peripheral pulses, normal rate, regular rhythm Respiratory/Chest: chest wall non-tender, decreased breath sounds Abdomen: normal bowel sounds, non tender, soft Extremities: normal inspection Edema: no edema noted Arm (L), no edema noted Arm (R), no edema noted Leg (L), no edema noted Leg (R), no edema noted Pedal (L), no edema noted Pedal (R), no edema noted Generalized Neurologic: motor weakness Skin: normal pigmentation, warm/dry Anderson Molina DO August 07, 2017 14:34
--- NOTE | 2017-08-07 18:38 | Cardiology Progress Note ---
Assessment/Plan Assessment/Plan 1. 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 Plan is to transfer her to [facility]. to receive pacemaker. 2. 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 Mild pulmonary HTN. Subjective Subjective Sinus rhythm at 77. Objective Last 24 Hour Vital Signs Date Time Temp Pulse Resp B/P (MAP) Pulse Ox O2 Delivery O2 Flow Rate FiO2 08/07/17 16:00 77 08/07/17 12:00 60 08/07/17 12:00 98.3 61 20 149/69 97 Room Air 98.3 08/07/17 09:00 73 138/53 08/07/17 08:00 60 08/07/17 08:00 98.2 73 20 138/53 96 Room Air 98.2 08/07/17 07:35 72 18 Room Air 21 08/07/17 05:11 58 08/07/17 04:00 97.7 69 20 172/83 96 Room Air 97.7 08/07/17 00:00 97.0 55 20 153/60 98 Room Air 97.0 08/06/17 23:59 58 08/06/17 22:18 150/71 08/06/17 22:00 97.7 63 20 121/65 98 Room Air 97.7 08/06/17 21:46 67 16 Room Air 21 08/06/17 20:00 69 Intake and Output 08/06/17 08/07/17 19:00 07:00 Intake Total 520 ml 240 ml Output Total 500 ml Balance 20 ml 240 ml Intake Oral 520 ml 240 ml Output Urine Total 500 ml # Bowel Movements 2 2 2D Echo: EF 65%, Mild LVH, Mild MR,RVSP 43 mmHg,Normal intracardiac filling pressure Laboratory Tests Test 08/07/17 08:35 White Blood Count 10.4 K/UL (4.8-10.8) Red Blood Count 4.61 M/UL (4.20-5.40) Hemoglobin 13.0 G/DL (12.0-16.0) Hematocrit 41.9 % (37.0-47.0) Mean Corpuscular Volume 91 FL (80-99) Mean Corpuscular Hemoglobin 28.2 PG (27.0-31.0) Mean Corpuscular Hemoglobin Concent 31.0 G/DL (32.0-36.0) L Red Cell Distribution Width 14.2 % (11.6-14.8) Platelet Count 288 K/UL (150-450) Mean Platelet Volume 10.6 FL (6.5-10.1) H Neutrophils (%) (Auto) 64.3 % (45.0-75.0) Lymphocytes (%) (Auto) 25.1 % (20.0-45.0) Monocytes (%) (Auto) 5.6 % (1.0-10.0) Eosinophils (%) (Auto) 3.4 % (0.0-3.0) H Basophils (%) (Auto) 1.5 % (0.0-2.0) Sodium Level 140 MMOL/L (136-145) Potassium Level 3.9 MMOL/L (3.5-5.1) Chloride Level 105 MMOL/L (98-107) Carbon Dioxide Level 28 MMOL/L (21-32) Anion Gap 8 mmol/L (5-15) Blood Urea Nitrogen 28 mg/dL (7-18) H Creatinine 1.3 MG/DL (0.55-1.30) Estimat Glomerular Filtration Rate mL/min (>60) Glucose Level 140 MG/DL (74-106) H Calcium Level 9.1 MG/DL (8.5-10.1) Objective HEENT: Normocepahic, anicteric, PERRLA, EOMI. NECK: No JVD, no carotid bruit, carotid upstroke 2+ B/L CHEST: Clear to auscultation. HEART: Normal S1 and S2, RRR, no murmurs, gallops or rubs. ABDOMEN: Obese and nontender, non-distended, + BS. EXTREMITIES: No edema, clubbing or cyanosis. Dontrell Tubbs MD August 07, 2017 18:38
--- NOTE | 2017-08-08 06:56 | Diagnostic Imaging Report ---
APPROVED REPORT CPT Code: 84792 Vascular Symptoms CVA/TIA: Doppler Spectral Velocity Analysis RightLeft RIGHT SIDE: CCA/BULB - Imaging reveals irregular, minimal plaque in the right carotid carotid arteries. VERTEBRAL - The vertebral artery was not well visualized. LEFT SIDE: CCA - Imaging reveals no significant plaque within the extracranial carotid arteries. The Doppler spectral flow analysis is within normal limits throughout the extracranial carotid arteries. VERTEBRAL - The vertebral artery is within normal limits.
== END 2017-08-07 17:00 | disposition short-term general hospital (02) | DRG 202 ==
LOC: EDBD 06:52 → EMR 07:40 → 2E 08:22 → EDBEDREQ 08:37 → 2W 08-02 16:39 → 2E 08-06 20:36
DX: J45.901 Unspecified asthma with (acute) exacerbation (principal); G82.50 Quadriplegia, unspecified; N39.0 Urinary tract infection, site not specified; I44.2 Atrioventricular block, complete; I47.2 Ventricular tachycardia; J81.1 Chronic pulmonary edema; F03.91 Unspecified dementia, unspecified severity, with behavioral disturbance; I45.81 Long QT syndrome; K21.9 Gastro-esophageal reflux disease without esophagitis; K44.9 Diaphragmatic hernia without obstruction or gangrene; D64.9 Anemia, unspecified; I44.1 Atrioventricular block, second degree; I44.7 Left bundle-branch block, unspecified; R00.1 Bradycardia, unspecified; I27.20 Pulmonary hypertension, unspecified; K56.41 Fecal impaction; E11.9 Type 2 diabetes mellitus without complications; I69.392 Facial weakness following cerebral infarction; I10 Essential (primary) hypertension; K22.70 Barrett's esophagus without dysplasia; M50.30 Other cervical disc degeneration, unspecified cervical region; M51.37 Other intervertebral disc degeneration, lumbosacral region; Z88.6 Allergy status to analgesic agent; Z88.0 Allergy status to penicillin; Z88.8 Allergy status to other drugs, medicaments and biological substances; M19.90 Unspecified osteoarthritis, unspecified site; E78.5 Hyperlipidemia, unspecified; R09.02 Hypoxemia
CPT/HCPCS: 36415; 71045; 74177; 80048; 80053; 81003; 82270; 82306; 82378; 82550; 82607; 82746; 82962; 83036; 83540; 83550; 83605; 83615; 83735; 83880; 84100; 84443; 84484; 85007; 85025; 85044; 85060; 85610; 85651; 85730; 86592; 87081; 87086; 87181; 93005; 93306; 93880; 94640; 94664; 99285; J1815